=== PATIENT | male | born 1955 | race Caucasian/White ===

== ENCOUNTER 2018-02-07 12:51 | Outpatient (CLI) | payer OTHER, SELFPAY ==
--- NOTE | 2018-02-07 08:59 | DI.RAD_ITS ---
SYMPTOM/DIAGNOSIS: KNEE PAIN, PRE TKA SURGERY LEG LENGTH STUDY: Standing AP views were performed from above the pelvis through the ankles. The left iliac crest projects superior to the right. The left femoral head projects 9 mm. superior to the left. The hip joint spaces are well maintained. Degenerative changes are seen in the lumbar spine. There are severe degenerative changes of both medial femoral tibial joint spaces and varus angulation at both knees. The ankles are unremarkable. IMPRESSION: Severe degenerative changes of both knees. Leg length discrepancy. LEFT KNEE: There is severe narrowing of the medial femoral tibial joint space. There is some flattening of the medial femoral condyle and remodeling of the medial tibial plateau. There is widening of the lateral femoral tibial joint space. Prominent spurring is also noted at the patellofemoral joint. Spurring is seen at the quadriceps insertion on the patella. There is a small joint effusion. Vascular calcifications are faintly seen. IMPRESSION: Severe degenerative changes of the medial femoral tibial joint. RIGHT KNEE: There are severe degenerative changes of the medial femoral tibial joint. There is flattening of the medial femoral condyle and medial tibial plateau and prominent spurring. Prominent spurring is also seen at the femoral intercondylar notch and patellofemoral joint. Mild degenerative changes are also noted of the lateral femoral tibial joint space but there is no lateral joint space narrowing. Vascular calcifications are seen. IMPRESSION: Degenerative changes, most severe in the medial femoral tibial joint.
== END 2018-02-07 13:11 ==
PROVIDERS: PCP Family Medicine; Visit Provider Student in an Organized Health Care Education/Training Program
DX: M25.561 Pain in right knee (principal); M25.562 Pain in left knee; M17.0 Bilateral primary osteoarthritis of knee
CPT/HCPCS: 73560; 77073

== ENCOUNTER 2018-03-05 07:49 | Outpatient (CLI) | payer OTHER, SELFPAY ==
[2018-03-05 09:14] LABS: HCT 43.6 % (40.0-50.0); HGB 14.9 g/dL (13.5-17.5); Mean Corp. HGB Concentration 34.2 g/dL (32.0-36.0); Mean Corpuscular Hemoglobin 29.6 pg (27.0-33.0); Mean Corpuscular Volume 86.7 fL (80-95); Mean Platelet Volume 9.8 fL (8.0-11.0); Platelet Count 277 x1000/uL (130-400); RBC 5.03 m/cumm (4.50-6.00); RBC Distribution Width 12.8 % (11.8-14.1); White Blood Cell Count 5.68 k/cumm (4.4-10.8)
--- NOTE | 2018-03-05 12:30 | W.PREOPHP ---
Date of service: 03/05/18 History of Present Illness Chief Complaint: Bilateral knee pain Narrative: Patient is a 62-year-old male who is been complaining of bilateral knee pain really for 7 or 8 years now. He has had arthroscopies done on both knees, but continues to have pain. He is a pretty active person who also works doing [employer]. He has put off knee replacements for quite some time now for fear of limiting his activity. He says at this point the pain is bad enough where it is limiting his activity on its own. He has had x-rays done which show severe arthritis of both knees, specifically the medial compartment of both knees. The joint space in the medial side is non-existent. He has been getting injections in Dr. Marte's office that have helped in the past to an extent. At this point Dr. Marte suggests bilateral total knee replacements, but states that he does not do them. He then sought out care from Dr. Tate who also recommends bilateral knee replacements. Since conservative treatment has failed at this point, patient would like to proceed with bilateral knee replacements. Meds Home Medications Medication Instructions Recorded Confirmed Type multivitamin [Once Daily] 1 ea PO DAILY 10/21/12 03/05/18 History needle (disp) 21 G [BD Regular #25 ndl 05/15/17 03/05/18 Rx Bevel [place]] syringe (disposable) #25 syringe 05/15/17 03/05/18 Rx testosterone cypionate 100 mg IM q 2 weeks #2 ml 05/15/17 03/05/18 Rx aspirin [Aspir-Low] 81 mg PO HS tab-cap 08/23/17 03/05/18 History amlodipine-benazepril [Lotrel] 1 tab-cap PO DAILY #90 tab-cap 10/09/17 03/05/18 Rx gemfibrozil [Lopid] 600 mg PO BID #180 tab-cap 10/09/17 03/05/18 Rx ibuprofen 800 mg PO BID PRN #180 tab-cap 10/09/17 03/05/18 Rx pantoprazole [Protonix] 40 mg PO DAILY #90 tab-cap 10/09/17 03/05/18 Rx Metoprolol Succinate 25 mg PO DAILY #90 tab-cap 11/29/17 03/05/18 Clinic acetaminophen [Tylenol Extra 650 mg PO BID 11/29/17 03/05/18 History Strength] needle (disp) 21 G [[place]] #12 ndl 12/13/17 03/05/18 Rx Allergies Allergy/AdvReac Type Severity Reaction Status Date / Time No Known Allergies Allergy Unverified 03/05/18 09:11 Results Labs : 03/05/18 09:02 Laboratory Results - last 24 hr 03/05/18 03/05/18 09:02 09:02 WBC 5.68 RBC 5.03 Hgb 14.9 Hct 43.6 MCV 86.7 MCH 29.6 MCHC 34.2 RDW 12.8 Plt Count 277 MPV 9.8 Patient ABO/Rh B Positive Antibody Screen Negative
--- NOTE | 2018-03-05 12:46 | W.PREOPHP ---
Date of service: 03/05/18 Assessment and Plan (1) Osteoarthritis of both knees: Current visit: Yes Status: Chronic Patient has osteoarthritis of both knees, and has failed conservative treatment. Plan is for bilateral total knee replacement. Details of surgery were discussed with patient as well as risks, and pertinent anatomy. All questions were answered. History of Present Illness Narrative: Patient is a 62-year-old male who is been complaining of bilateral knee pain really for 7 or 8 years now. He has had arthroscopies done on both knees, but continues to have pain. He is a pretty active person who also works doing [employer]. He has put off knee replacements for quite some time now for fear of limiting his activity. He says at this point the pain is bad enough where it is limiting his activity on its own. He has had x-rays done which show severe arthritis of both knees, specifically the medial compartment of both knees. The joint space in the medial side is non-existent. He has been getting injections in Dr. Marte's office that have helped in the past to an extent. At this point Dr. Marte suggests bilateral total knee replacements, but states that he does not do them. He then sought out care from Dr. Tate who also recommends bilateral knee replacements. Since conservative treatment has failed at this point, patient would like to proceed with bilateral knee replacements. Pertinent Surgical Information Patient denies history of CVA, [place], angina, asthma, COPD, renal or liver disorders, hepatitis, bleeding disorders, diabetes, immune or thyroid disorders. No complications from anesthesia. Review of Systems Constitutional Denies fever(s) ENT Denies dizziness and Denies sore throat Cardiovascular Denies chest pain, Denies palpitations and Denies dyspnea Respiratory Denies dyspnea Gastrointestinal Denies abdominal pain, Denies melena, Denies hematochezia, Denies diarrhea, Denies nausea and Denies vomiting Genitourinary Denies hematuria and Denies dysuria Neurologic Denies dizziness Endocrine Denies palpitations [facility] Family History Mother Diabetes Essential hypertension Hyperlipidemia Father Diabetes Essential hypertension Depression Heart disease Hyperlipidemia Grandfather No problems noted. Grandfather No problems noted. Grandmother Cerebrovascular accident Grandmother No problems noted. Sister Essential hypertension Sister No problems noted. Sister No problems noted. Brother No problems noted. Brother No problems noted. Brother No problems noted. Son No problems noted. Daughter No problems noted. Medical History Osteoarthritis of knees, bilateral (Acute) Chronic low back pain Hearing loss Hypercholesterolemia Hypertension Social History Smoking/Tobacco Use Status: Never Surgical History History of arthroscopy of both knees (Acute) BACK SURGERY (~04/2013) Colonoscopy - MAC Excision, Olecranon Bursa (~08/2009) NEGATIVE STRESS TEST Meds Home Medications Medication Instructions Recorded Confirmed Type multivitamin [Once Daily] 1 ea PO DAILY 10/21/12 03/05/18 History needle (disp) 21 G [BD Regular #25 ndl 05/15/17 03/05/18 Rx Bevel [place]] syringe (disposable) #25 syringe 05/15/17 03/05/18 Rx testosterone cypionate 100 mg IM q 2 weeks #2 ml 05/15/17 03/05/18 Rx aspirin [Aspir-Low] 81 mg PO HS tab-cap 08/23/17 03/05/18 History amlodipine-benazepril [Lotrel] 1 tab-cap PO DAILY #90 tab-cap 10/09/17 03/05/18 Rx gemfibrozil [Lopid] 600 mg PO BID #180 tab-cap 10/09/17 03/05/18 Rx ibuprofen 800 mg PO BID PRN #180 tab-cap 10/09/17 03/05/18 Rx pantoprazole [Protonix] 40 mg PO DAILY #90 tab-cap 10/09/17 03/05/18 Rx Metoprolol Succinate 25 mg PO DAILY #90 tab-cap 11/29/17 03/05/18 Clinic acetaminophen [Tylenol Extra 650 mg PO BID 11/29/17 03/05/18 History Strength] needle (disp) 21 G [[place]] #12 ndl 12/13/17 03/05/18 Rx Allergies Allergy/AdvReac Type Severity Reaction Status Date / Time No Known Allergies Allergy Unverified 03/05/18 09:11 Exam HENMT Head: normocephalic and atraumatic General nose exam: no nasal discharge Throat: uvula midline and no uvular edema Other: soft palate rises symmetrically, no erythema Eyes Conjunctivae: conjunctivae normal Sclera: sclerae normal Pupils: PERRL Resp Effort & Inspection: normal respiratory effort Auscultation: clear to auscultation bilaterally and no wheezes Cardio Rate: regular rate Rhythm: regular rhythm Heart Sounds: S1 normal, S2 normal and no murmurs Other: BP: 134/76 Results Labs : 03/05/18 09:02 Laboratory Results - last 24 hr 03/05/18 03/05/18 09:02 09:02 WBC 5.68 RBC 5.03 Hgb 14.9 Hct 43.6 MCV 86.7 MCH 29.6 MCHC 34.2 RDW 12.8 Plt Count 277 MPV 9.8 Patient ABO/Rh B Positive Antibody Screen Negative
--- NOTE | 2018-03-05 12:49 | HPE_ITS ---
Date of service: 03/05/18 Assessment and Plan (1) Osteoarthritis of both knees: Current visit: Yes Status: Chronic Patient has osteoarthritis of both knees, and has failed conservative treatment. Plan is for bilateral total knee replacement. Details of surgery were discussed with patient as well as risks, and pertinent anatomy. All questions were answered. History of Present Illness Narrative: Patient is a 62-year-old male who is been complaining of bilateral knee pain really for 7 or 8 years now. He has had arthroscopies done on both knees, but continues to have pain. He is a pretty active person who also works doing [employer]. He has put off knee replacements for quite some time now for fear of limiting his activity. He says at this point the pain is bad enough where it is limiting his activity on its own. He has had x-rays done which show severe arthritis of both knees, specifically the medial compartment of both knees. The joint space in the medial side is non-existent. He has been getting injections in Dr. Marte's office that have helped in the past to an extent. At this point Dr. Marte suggests bilateral total knee replacements, but states that he does not do them. He then sought out care from Dr. Tate who also recommends bilateral knee replacements. Since conservative treatment has failed at this point, patient would like to proceed with bilateral knee replacements. Pertinent Surgical Information Patient denies history of CVA, [place], angina, asthma, COPD, renal or liver disorders, hepatitis, bleeding disorders, diabetes, immune or thyroid disorders. No complications from anesthesia. Review of Systems Constitutional Denies fever(s) ENT Denies dizziness and Denies sore throat Cardiovascular Denies chest pain, Denies palpitations and Denies dyspnea Respiratory Denies dyspnea Gastrointestinal Denies abdominal pain, Denies melena, Denies hematochezia, Denies diarrhea, Denies nausea and Denies vomiting Genitourinary Denies hematuria and Denies dysuria Neurologic Denies dizziness Endocrine Denies palpitations [facility] Family History Mother Diabetes Essential hypertension Hyperlipidemia Father Diabetes Essential hypertension Depression Heart disease Hyperlipidemia Grandfather No problems noted. Grandfather No problems noted. Grandmother Cerebrovascular accident Grandmother No problems noted. Sister Essential hypertension Sister No problems noted. Sister No problems noted. Brother No problems noted. Brother No problems noted. Brother No problems noted. Son No problems noted. Daughter No problems noted. Medical History Osteoarthritis of knees, bilateral (Acute) Chronic low back pain Hearing loss Hypercholesterolemia Hypertension Social History Smoking/Tobacco Use Status: Never Surgical History History of arthroscopy of both knees (Acute) BACK SURGERY (~04/2013) Colonoscopy - MAC Excision, Olecranon Bursa (~08/2009) NEGATIVE STRESS TEST Meds Home Medications Medication Instructions Recorded Confirmed Type multivitamin [Once Daily] 1 ea PO DAILY 10/21/12 03/05/18 History needle (disp) 21 G [BD Regular #25 ndl 05/15/17 03/05/18 Rx Bevel [place]] syringe (disposable) #25 syringe 05/15/17 03/05/18 Rx testosterone cypionate 100 mg IM q 2 weeks #2 ml 05/15/17 03/05/18 Rx aspirin [Aspir-Low] 81 mg PO HS tab-cap 08/23/17 03/05/18 History amlodipine-benazepril [Lotrel] 1 tab-cap PO DAILY #90 tab-cap 10/09/17 03/05/18 Rx gemfibrozil [Lopid] 600 mg PO BID #180 tab-cap 10/09/17 03/05/18 Rx ibuprofen 800 mg PO BID PRN #180 tab-cap 10/09/17 03/05/18 Rx pantoprazole [Protonix] 40 mg PO DAILY #90 tab-cap 10/09/17 03/05/18 Rx Metoprolol Succinate 25 mg PO DAILY #90 tab-cap 11/29/17 03/05/18 Clinic acetaminophen [Tylenol Extra 650 mg PO BID 11/29/17 03/05/18 History Strength] needle (disp) 21 G [[place]] #12 ndl 12/13/17 03/05/18 Rx Allergies Allergy/AdvReac Type Severity Reaction Status Date / Time No Known Allergies Allergy Unverified 03/05/18 09:11 Exam HENMT Head: normocephalic and atraumatic General nose exam: no nasal discharge Throat: uvula midline and no uvular edema Other: soft palate rises symmetrically, no erythema Eyes Conjunctivae: conjunctivae normal Sclera: sclerae normal Pupils: PERRL Resp Effort & Inspection: normal respiratory effort Auscultation: clear to auscultation bilaterally and no wheezes Cardio Rate: regular rate Rhythm: regular rhythm Heart Sounds: S1 normal, S2 normal and no murmurs Other: BP: 134/76 Results Labs : 03/05/18 09:02 Laboratory Results - last 24 hr 03/05/18 03/05/18 09:02 09:02 WBC 5.68 RBC 5.03 Hgb 14.9 Hct 43.6 MCV 86.7 MCH 29.6 MCHC 34.2 RDW 12.8 Plt Count 277 MPV 9.8 Patient ABO/Rh B Positive Antibody Screen Negative
[2018-03-07 17:14] LABS: Testosterone, Free 15.4 ng/dL (3.67-13.9); Testosterone, Total 768 ng/dL (240-950)
== END 2018-03-05 08:09 ==
PROVIDERS: PCP Family Medicine; Visit Provider Student in an Organized Health Care Education/Training Program
DX: M17.0 Bilateral primary osteoarthritis of knee (principal); Z01.812 Encounter for preprocedural laboratory examination; Z01.818 Encounter for other preprocedural examination
CPT/HCPCS: 36415; 84402; 84403; 85027; 86850; 86900; 86901; NC

== ENCOUNTER 2018-03-14 08:23 | Inpatient (IN) | payer OTHER, SELFPAY ==
[2018-03-14] VITALS (12 sets, daily range): BP systolic 89–156; BP diastolic 56–103; PULSE 37–72; RESP 1–18; TEMP 36.1–36.9; O2SAT 95–98
[2018-03-14] MEDS: Lactated Ringers 1,000 ML 80 ML IV ×4 (09:02→16:13)
[2018-03-14] MEDS: Gabapentin 300 MG CAP PO (09:09)
[2018-03-14] MEDS: oxyCODONE-CR 10 MG TABCR PO (09:09)
[2018-03-14] MEDS: Celecoxib 200 MG CAP 400 MG PO (09:09)
[2018-03-14] MEDS: Acetaminophen 500 MG TAB 1000 MG PO ×2 (09:09→20:28)
[2018-03-14] MEDS: Bupivacaine 0.25% Pres-Free 10 ML VIAL (09:50)
[2018-03-14] MEDS: Bupivacaine 0.25% Pres-Free 30 ML VIAL ×3 (09:50→13:30)
--- NOTE | 2018-03-14 14:14 | ROE_ITS ---
Date of service: 03/14/18 Time of Service: 14:12 Operative Note DATE OF PROCEDURE: 03/14/18 PRE-OP DIAGNOSIS: Bilateral knee osteoarthritis POST-OP DIAGNOSIS: same PROCEDURE: Bilateral Total Knee Replacement SURGEON: Eliseo Tate [employer]CIAL APPLICATION DEVELOPER: Boy Saab ANESTHESIA: regional and spinal ESTIMATED BLOOD LOSS: 700 PATHOLOGY: none sent TOURNIQUET TIME: 61 COMPLICATIONS: None Patient was transported to: PACU Patient's condition: stable Implants: RIGHT: 1. Depuy Attune Posterior Stabilized Femoral Component, Size 8 2. Depuy Attune Fixed Platform Tibial Component, Size 7 3. Depuy Attune 8 x 8 mm fixed, stabilized Poly 4. Depuy Attune Patellar Component, Size 38 mm LEFT: 1. Depuy Attune Posterior Stabilized Femoral Component, Size 8 2. Depuy Attune Fixed Platform Tibial Component, Size 7 3. Depuy Attune 8 x 7 mm fixed, Stabilized Poly 4. Depuy Attune Patellar Component, 38 mm Indications: I have seen Gary in clinic for symptoms of bilteral knee arthritis , confirmed with radiographic findings. Gary has exhausted nonoperative methods and was having significant limitations in daily function and desired better function and less pain. I discussed the technical details of a knee replacement. I explained the risks of the procedure to include, but not limited to, bleeding, infection, pain, stiffness, fracture, damage to nerves and vessels, damage to muscles and tendons, loosening, need for repeat procedure , blood clot and cardiopulmonary demise. Despite these risks, Gary elected to proceed. Findings: There was significant signs of arthritis throughout both knees. Both knees had significant tibial varus with medial arthritis as well as try compartmental osteophytes. The anatomy the left knee had a quite a oblong patella and a lateralized tibial tubercle. Procedure Description: Gary was greeted in the preoperative holding area where the correct side was identified and marked. The consent was reviewed with the patient and signed. The history and physical was updated. All questions were answered. Preoperative medications were administered: Acetaminophen 1000mg, Celebrex 400mg, Gabapentin 300mg, and Oxycontin 10mg. An adductor canal block was then administered by the anesthesia team in the PACU. Gary was taken back to the operating room. The patient was placed into the supine position on the operating room table. A nonsterile tourniquet was placed high onto the leg but only used for cementing. Posts were placed for positioning during the procedure. All bony prominences were well padded. Prophylactic antibiotics in the form of cefazolin were administered. 1g of Tranxemic Acid was given intravenously within 30 minutes of incision. The right leg was then prepped with Chloraprep and draped in a standard fashion with impervious stockinette and extremity drape with Iodine impregnated skin protection. A timeout to confirm correct identity, side and site, procedure, allergies, anesthesia, and medical concerns was performed. With the knee in some flexion, a midline incision was made overlying the knee. Full thickness skin flaps were raised once the extensor mechanism was encountered. These were raised medially and laterally. Any bleeding was controlled with electrocautery. Once the extensor mechanism was fully exposed, a medial parapatellar arthrotomy was performed in a flexed position. All bleeding from the arthrotomy and the geniculate arteries was coagulated. A medial subperiosteal peel was performed with electrocautery to the midcoronal plane. Due to the significant varus deformity the entire medial tibial plateau was exposed. The fat pad was removed while keeping the patellar tendon protected. The anterior distal femur synovium was removed for later visualization. The ACL and PCL were resected and the anterior horn of the lateral meniscus was transected. The knee was then flexed with the patella everted. Large osteophytes from the tibia were removed. Large osteophytes from the femur were removed. Using a step drill, and based on preoperative templating, the femoral canal was entered. This was done with a step drill without any difficulty. The intramedullary distal femoral cut guide was inserted, set to a 5 degree valgus cut and 10mm cut thickness. The distal femoral cut guide was then held in position and pinned. With the soft tissues protected, the distal cut was performed. This was passed over a few times to ensure a planar cut. I then turned attention to the tibia. The extramedullary guide was placed onto the leg. The distal aspect was slid medial to adjust for position of center of ankle and stay in line with shaft of the tibia. Approximately 3-5 degrees of posterior slope was kept in the proximal cutting guide. The center of the guide was aligned with the PCL. The stylus was used to assess cut thickness. The medial side, most involved side, was set for a 3mm cut. This was then held in position and pinned into place with 2 additional pins and a cross pin for stability. The medial and lateral collateral ligaments were protected and the cut was performed. With this completed, it was assessed and noted to be of appropriate dimensions. The guide was removed. A spacer block was inserted and the knee was brought into extension. The 7 mm spacer block provided full extension, without hyperextension and with stability of both the medial and lateral collateral ligaments was assessed. The pins from the femur and the tibia were then removed. The distal femur was then sized. The anterior stylus was placed onto the lateral ridge of the anterior femur. This indicated a size 8 femur. The external rotation of the guide was 5 degrees to match the epicondylar axis, perpendicular to Lipscomb?s line. The 4-in-1 cutting guide was the placed. The posterior medial femur cut was evaluated and appeared of good thickness. The spacer block was inserted underneath the cutting guide and stability was confirmed in 90 degrees of flexion. An deepthi wing was used to confirm appropriate position of the anterior cut to avoid notching. This cutting guide was ensured to be flush on the cut surface and then pinned into place with headed pins. While protecting the soft tissues, quad tendon, and collateral ligaments, the anterior and posterior cuts were performed with a saw. The central two pins were removed and the posterior and anterior chamfers were cut next. The notch-cutting guide was placed. This was pinned to lateralize the femoral component as much as possible while keeping it flush on the cut surface. This was then pinned into position. A reciprocating saw was used to make the notch cut. A rasp smoothed the cut surfaces. A trial posterior stabilized femoral component was then inserted, impacted down to the cut surfaces, and the lug holes were drilled. A provisional trial tibial component was placed and the knee was brought through range of motion. The polyethylene was trialed until there was good flexion and extension with excellent stability to the medial and lateral collaterals. The patella was tracking without thumbs. The tibial cut surface was fully exposed. The medial and lateral menisci were removed. The tibia was then sized as a 7. The tibia had been previously marked during trialing to correspond to the center of the tibial component to help with rotation. The trial was aligned to this boy, approximately rotated to the medial 1/3rd of the tibial tubercle. The trial was pinned into place. The tibia was prepared with a reamer and a keel punch. The knee was then brought into extension and the patella was measured as 29 mm. Using the patellar clamp and cut guide, this was resected to a flat surface with at least 13mm of thickness remaining. The size 38 mm patella fit the best. This was oriented and then clamped into position. The lugs were drilled. The trial components were removed. The final components, except for the polyethylene were opened on the back table. The periosteal and capsular tissues , especially posteriorly, around the knee were then systematically injected with 20cc of 0.25% Marcaine and the tourniquet was then inflated to 275mmHg. The knee was thoroughly irrigated with a pulse lavage and dried. On the back table, with the implants opened, the cement was mixed. 2 batches of antibiotic laden cement were prepared with vacuum assistance. After the cement was ready a small amount was placed on to the back side of the tibial component at the keel. A small amount was placed onto the posterior flange of the femur. Cement was manual pressurized and impregnated into the cut surface of the tibia. The tibial component was then inserted into the cut surface and impacted into position. Excess cement was removed and the component was reimpacted. Again, excess cement was removed and our attention was then turned to the femur. The femoral cut surface was once again dried and cement was manually impacted into the cut surface. The femoral component was lined with the lug holes and impacted. Excess cement was removed. It was ensured to be down against the cut surface. The trial polyethylene was then inserted and the leg was brought out into full extension for the duration of the cement curing process, approximately 15min. Cement was lastly manually impacted into the cut surface of the patella and the patellar button was clamped into position and held. During this process attention was turned to the gutters of the knee and for all interfaces for any excess cement. After the cement had finally cured, approximately 15min, the clamp was removed from the patella and the knee was taken through range of motion. A size 6mm polyethylene component provided the best range of motion and stability with less than 2mm gapping with medial and lateral stress and full extension without significant hyperextension. The patella was tracking with a no-thumbs technique. The trial poly was removed and once again the knee was checked for any loose, excess, or errant cement. The poly component was then inserted and impacted into position after cleaning and drying the tibial tray. The capsule was then reapproximated with a No. 1 Vicryl at multiple locations. The capsule was finally closed with a No. 2 Stratafix, barbed suture. The tourniquet was then released and the arthrotomy appeared watertight without significant bleeding. The second dosing of 1g TXA was started. Deep tissues were then reapproximated with 0 Vicryl and 2-0 Vicryl. The skin was closed with a running 3-0 Monocryl in a subcuticular fashion. This was reinforced with skin glue. A Mepilex silver dressing was applied along with a foot-to- thigh KINJAL wrap. A CryoCuff was applied. Our attention was then turned to the left knee. With the knee in some flexion, a midline incision was made overlying the knee. Full thickness skin flaps were raised once the extensor mechanism was encountered. These were raised medially and laterally. Any bleeding was controlled with electrocautery. Once the extensor mechanism was fully exposed, a medial parapatellar arthrotomy was performed in a flexed position. All bleeding from the arthrotomy and the geniculate arteries was coagulated. A medial subperiosteal peel was performed with electrocautery to the midcoronal plane. Due to the significant varus deformity the entire medial tibial plateau was exposed. The fat pad was removed while keeping the patellar tendon protected. The anterior distal femur synovium was removed for later visualization. The ACL and PCL were resected and the anterior horn of the lateral meniscus was transected. The knee was then flexed with the patella everted. Large osteophytes from the tibia were removed. Large osteophytes from the femur were removed. The patella had quite an odd shape. It was very oblique in nature. The tibial tubercle is also very lateral making the parapatellar approach seem out of place. Using a step drill, and based on preoperative templating, the femoral canal was entered. This was done with a step drill without any difficulty. The intramedullary distal femoral cut guide was inserted, set to a 5 degree valgus cut and 10mm cut thickness. The distal femoral cut guide was then held in position and pinned. With the soft tissues protected, the distal cut was performed. This was passed over a few times to ensure a planar cut. I then turned attention to the tibia. The extramedullary guide was placed onto the leg. The distal aspect was slid medial to adjust for position of center of ankle and stay in line with shaft of the tibia. Approximately 3-5 degrees of posterior slope was kept in the proximal cutting guide. The center of the guide was aligned with the PCL. The stylus was used to assess cut thickness. The medial side, most involved side, was set for a 3mm cut. This was then held in position and pinned into place with 2 additional pins and a cross pin for stability. The medial and lateral collateral ligaments were protected and the cut was performed. With this completed, it was assessed and noted to be of appropriate dimensions. The guide was removed. A spacer block was inserted and the knee was brought into extension. The 6mm spacer block provided full extension, without hyperextension and with stability of both the medial and lateral collateral ligaments was assessed. The pins from the femur and the tibia were then removed. The distal femur was then sized. The anterior stylus was placed onto the lateral ridge of the anterior femur. This indicated a size 8 femur. The external rotation of the guide was adjusted to 3 degrees to match the epicondylar axis, perpendicular to Lipscomb?s line. The 4-in-1 cutting guide was the placed. The posterior medial femur cut was evaluated and appeared of good thickness. The spacer block was inserted underneath the cutting guide and stability was confirmed in 90 degrees of flexion. An deepthi wing was used to confirm appropriate position of the anterior cut to avoid notching. This cutting guide was ensured to be flush on the cut surface and then pinned into place with headed pins. While protecting the soft tissues, quad tendon, and collateral ligaments, the anterior and posterior cuts were performed with a saw. The central two pins were removed and the posterior and anterior chamfers were cut next. The notch-cutting guide was placed. This was pinned to lateralize the femoral component as much as possible while keeping it flush on the cut surface. This was then pinned into position. A reciprocating saw was used to make the notch cut. A rasp smoothed the cut surfaces. A trial posterior stabilized femoral component was then inserted, impacted down to the cut surfaces, and the lug holes were drilled. A provisional trial tibial component was placed and the knee was brought through range of motion. The polyethylene was trialed until there was good flexion and extension with excellent stability to the medial and lateral collaterals. The patella was tracking without thumbs. The tibial cut surface was fully exposed. The medial and lateral menisci were removed. The tibia was then sized as a 7. The tibia had been previously marked during trialing to correspond to the center of the tibial component to help with rotation. The trial was aligned to this boy, approximately rotated to the medial 1/3rd of the tibial tubercle. The trial was pinned into place. The tibia was prepared with a reamer and a keel punch. The knee was then brought into extension and the patella was measured as 30 mm. Using the patellar clamp and cut guide, this was resected to a flat surface with at least 13mm of thickness remaining. The 38 mm patella fit the best. This was oriented and then clamped into position. The lugs were drilled. The trial components were removed. The final components, except for the polyethylene were opened on the back table. The periosteal and capsular tissues , especially posteriorly, around the knee were then systematically injected with a periarticular cocktail consisting of 50cc 0.25% Marcaine, 30mg Ketorolac , 20cc of Exparal and 50cc of injectable saline. The tourniquet was then inflated to 275mmHg. The knee was thoroughly irrigated with a pulse lavage and dried. On the back table, with the implants opened, the cement was mixed. 2 batches of antibiotic laden cement were prepared with vacuum assistance. After the cement was ready a small amount was placed on to the back side of the tibial component at the keel. A small amount was placed onto the posterior flange of the femur. Cement was manual pressurized and impregnated into the cut surface of the tibia. The tibial component was then inserted into the cut surface and impacted into position. Excess cement was removed and the component was reimpacted. Again, excess cement was removed and our attention was then turned to the femur. The femoral cut surface was once again dried and cement was manually impacted into the cut surface. The femoral component was lined with the lug holes and impacted. Excess cement was removed. It was ensured to be down against the cut surface. The trial polyethylene was then inserted and the leg was brought out into full extension for the duration of the cement curing process, approximately 15min. Cement was lastly manually impacted into the cut surface of the patella and the patellar button was clamped into position and held. During this process attention was turned to the gutters of the knee and for all interfaces for any excess cement. After the cement had finally cured, approximately 15min, the clamp was removed from the patella and the knee was taken through range of motion. A size 7 mm polyethylene component provided the best range of motion and stability with less than 2mm gapping with medial and lateral stress and full extension without significant hyperextension. The patella was tracking with a no-thumbs technique. The trial poly was removed and once again the knee was checked for any loose, excess, or errant cement. The poly component was then inserted and impacted into position after cleaning and drying the tibial tray. The capsule was then reapproximated with a No. 1 Vicryl at multiple locations. The capsule was finally closed with a No. 2 Stratafix, barbed suture. The tourniquet was then released and the arthrotomy appeared watertight without significant bleeding. The second dosing of 1g TXA was started. Deep tissues were then reapproximated with 0 Vicryl and 2-0 Vicryl. The skin was closed with a running 3-0 Monocryl in a subcuticular fashion. This was reinforced with skin glue. A Mepilex silver dressing was applied along with a foot-to- thigh KINJAL wrap. A CryoCuff was applied. Gary was woken from his sedation and transferred to the hospital bed. He was taken to the PACU in stable condition Gary has a good prognosis. Physical therapy will start today and without restrictions, weight-bearing as tolerated. Rivaroxaban 10 mg will be used for DVT prophylaxis.
--- NOTE | 2018-03-14 14:56 | PT.INNT ---
Date of service: 03/14/18 Time of Service: 14:56 PT Notes PHYSICAL THERAPY NOTE 03/14/18 PT consult received, chart reviewed, pt not yet on unit. Will complete PT eval in am, FWW left in patient room Sharon De Leon PT
--- NOTE | 2018-03-14 15:41 | PDOC.CMIN ---
- If Service Date Differs Date of service: 03/14/18 Time of Service: 15:41 Care Management Initial Assess REASON FOR HOSPITALIZATION:: Bilateral knee DJD. PAST MEDICAL HISTORY/PAST SURGICAL HISTORY:: Hearing loss, hypercholesterolemia, hypertension, osteoarthritis bilateral knees. Surgical hx: back surgery, colonoscopy, excision; olecranon bursa. PREVIOUS FUNCTIONAL STATUS/SOCIAL/FAMILY SUPPORTS:: Gary resides in [place] with his , Trinity. 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 Gary is very active prior to this surgery and is often seen by this adjusto writer operator working in the [employer]. Gary is independent with his ADLs and transportation. Gary has had several surgeries on his back, the most recent in August. CURRENT FUNCTIONAL STATUS:: Gary is lying in bed post-op day 1 following bilateral knee DJD. He is engaged in conversation and talkative. Gary reports that his knees aren't really bothering him but that he is having back pain. He reports that the pain is likely due to the fact that he rushed to get six months worth of work into five weeks. Gary has had two past surgeries on his back and has received cortisone shots for years. He has an aqua K pad in place and is receiving IV pain medications and fluids. Per nursing, Gary has been desating while sleeping and is being monitored. PT will begin working with Gary today. Gary reports that he has a walker at home and additionally has grab bars, a shower chair, and a raised toilet seat. He and his are discussing the purchase of a hospital bed d/t Gary's bedroom being 12 stairs up from the first floor. Gary's , Trinity, followed up with CM later in the day to relay her concerns regarding Gary's nutrition. Trinity reports that Gary was talking about starving himself and only eating popsicles while at [facility] because he needed to start losing weight. CM and Trinity agreed that sufficient nutrition is critical in healing and that any weight loss program should not begin today (in particular, weight loss via starvation). CM will relay information to RN. ADVANCE DIRECTIVES:: None on file at [facility]. Has patient been provided with information about the portal?: Yes Did the patient sign up for the portal?: No CODE STATUS:: Full Code INSURANCE COVERAGE / FINANCIAL ISSUES:: [employer] PRIMARY CARE PHYSICIAN:: Shai Mcdaniel. POTENTIAL DISCHARGE NEEDS:: Follow up appointment with surgical services and PCP. Home PT/OT services. PATIENT/FAMILY EDUCATION NEEDS:: Discharge education, any limitations, and follow up plan of care. Ask Me Three discussion. ANTICIPATED BARRIERS TO DISCHARGE:: No anticipated barriers to discharge. TRANSPORTATION:: Gary will transport via private vehicle with his , Trinity. PLAN:: Cole will discharge home when medically ready per MD. Anticipate patient will discharge home with PT/OT services and follow up with MD. CM will continue to offer support to patient and care team regarding discharge planning and disposition.
--- NOTE | 2018-03-14 15:56 | INITIAL_ITS ---
- If Service Date Differs Date of service: 03/14/18 Time of Service: 15:41 Care Management Initial Assess REASON FOR HOSPITALIZATION:: Bilateral knee DJD. PAST MEDICAL HISTORY/PAST SURGICAL HISTORY:: Hearing loss, hypercholesterolemia , hypertension, osteoarthritis bilateral knees. Surgical hx: back surgery, colonoscopy, excision; olecranon bursa. PREVIOUS FUNCTIONAL STATUS/SOCIAL/FAMILY SUPPORTS:: Gary resides in [place] with his , Trinity. 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 Gary is very active prior to this surgery and is often seen by this senior grant writer working in the [employer]. Gary is independent with his ADLs and transportation. Gary has had several surgeries on his back, the most recent in August. CURRENT FUNCTIONAL STATUS:: Gary is lying in bed post-op day 1 following bilateral knee DJD. He is engaged in conversation and talkative. Gary reports that his knees aren't really bothering him but that he is having back pain. He reports that the pain is likely due to the fact that he rushed to get six months worth of work into five weeks. Gary has had two past surgeries on his back and has received cortisone shots for years. He has an aqua K pad in place and is receiving IV pain medications and fluids. Per nursing, Gary has been desating while sleeping and is being monitored. PT will begin working with Gary today. Gary reports that he has a walker at home and additionally has grab bars, a shower chair, and a raised toilet seat. He and his are discussing the purchase of a hospital bed d/t Gary's bedroom being 12 stairs up from the first floor. Gary's , Trinity, followed up with CM later in the day to relay her concerns regarding Gary's nutrition. Trinity reports that Gary was talking about starving himself and only eating popsicles while at [facility] because he needed to start losing weight. CM and Trinity agreed that sufficient nutrition is critical in healing and that any weight loss program should not begin today (in particular, weight loss via starvation). CM will relay information to RN. ADVANCE DIRECTIVES:: None on file at [facility]. Has patient been provided with information about the portal?: Yes Did the patient sign up for the portal?: No CODE STATUS:: Full Code INSURANCE COVERAGE / FINANCIAL ISSUES:: [employer] PRIMARY CARE PHYSICIAN:: Shai Mcdaniel. POTENTIAL DISCHARGE NEEDS:: Follow up appointment with surgical services and PCP. Home PT/OT services. PATIENT/FAMILY EDUCATION NEEDS:: Discharge education, any limitations, and follow up plan of care. Ask Me Three discussion. ANTICIPATED BARRIERS TO DISCHARGE:: No anticipated barriers to discharge. TRANSPORTATION:: Gary will transport via private vehicle with his , Trinity. PLAN:: Cole will discharge home when medically ready per MD. Anticipate patient will discharge home with PT/OT services and follow up with MD. CM will continue to offer support to patient and care team regarding discharge planning and disposition.
[2018-03-14] MEDS: Normal Saline Flush 10 ML SYR IV ×2 (16:13→16:47)
[2018-03-14] MEDS: HYDROmorphone 2 MG/ML VIAL 0.5 MG IVP (16:47)
[2018-03-14] MEDS: Gemfibrozil 600 MG TAB PO (16:47)
--- NOTE | 2018-03-14 17:10 | NUR.NOTE ---
Nursing Note: Patient arrived to med/surg via stretcher from PACU and was admitted to room 215 at 1531
[2018-03-14] MEDS: oxyCODONE 5 MG TAB PO ×2 (17:50→22:15)
[2018-03-14] MEDS: Docusate Sodium 100 MG CAP PO (20:25)
[2018-03-14] MEDS: Celecoxib 200 MG CAP PO (20:25)
[2018-03-14] MEDS: Aspirin E.C. 81 MG TABEC PO (20:25)
[2018-03-14] MEDS: Metoprolol CR 25 MG TABCR PO (20:54)
[2018-03-15] VITALS (12 sets, daily range): BP systolic 126–145; BP diastolic 77–86; PULSE 68–84; RESP 12–18; TEMP 37.1–38.5; O2SAT 92–98
[2018-03-15] MEDS: Lactated Ringers 1,000 ML 80 ML IV ×2 (05:47→19:09)
--- NOTE | 2018-03-15 07:26 | W.PM.PROGNOT ---
Assessment and Plan (1) Osteoarthritis of both knees: Current visit: No Status: Chronic Gary is status post bilateral knee replacements. He seems to be doing well. He does have this back pain which she has had in the past. I think it has flared up simply due to his debilitation prior to surgery and the recent surgery itself. We can also try some heating pads to the back. I think mobilization will be his biggest help. He does have pain medication on board. We want to be careful with pain medication at night given his tendency for desaturation. We will continue monitoring his oxygenation at night. He should start physical therapy this morning. We will check blood work. We did lose some 100 cc of total blood loss and it is possible he may need a transfusion. He will start rivaroxaban for blood clot prevention. Subjective Interval history since last seen: Gary is doing okay. He denies having significant pain. He did have some episodes of decreased oxygenation overnight while he was sleeping and taking pain medication. Likely he has some underlying sleep apnea. He denies any numbness or tingling. He is having some pain in his back. He does have significant history and with recent back surgery in the spring of this year. He denies any chest pain or shortness of breath. He denies any fevers or chills per Objective Objective Clinical Data: Vital Signs Temperature 37.1 C 03/15/18 03:25 Temperature Source Tympanic 03/15/18 03:25 Pulse 68 03/15/18 03:25 Pulse Rhythm Irregular 03/15/18 00:00 Respiratory Rate 18 03/15/18 03:25 Respiratory Effort 03/15/18 00:00 Respiratory Depth Normal 03/15/18 00:00 Respiratory Pattern Normal 03/15/18 00:00 Blood Pressure 136/86 03/15/18 03:25 Pulse Oximetry 96 03/15/18 03:25 Respiratory End-tidal CO2 38 03/14/18 15:15 Oxygen Delivery Method Room Air 03/15/18 03:25 Oxygen Flow Rate 0 03/15/18 03:25 Pain Level 0 03/15/18 03:25 Intake & Output 03/14/18 03/14/18 03/15/18 11:59 23:59 11:59 Intake Total 1110 / 1110 2912.333 / 2912.333 1060.667 / 1060.667 Output Total 1100 / 1100 Balance 1110 / 1110 1812.333 / 4918.883 3268.667 / 1060.667 Weight 99.6 kg Intake: IV 1110 / 1110 2272.333 / 2272.333 810.667 / 810.667 Oral 640 / 640 250 / 250 Output: Urine 400 / 400 Estimated Blood Loss 700 / 700 Other: Urine Color Pale Light Sujata Yellow Urine Appearance Clear Clear Clear Emesis Description None
[2018-03-15 07:42] LABS: HCT 35.3 % (40.0-50.0); HGB 11.8 g/dL (13.5-17.5); Mean Corp. HGB Concentration 33.4 g/dL (32.0-36.0); Mean Corpuscular Hemoglobin 29.3 pg (27.0-33.0); Mean Corpuscular Volume 87.6 fL (80-95); Platelet Count 218 x1000/uL (130-400); RBC 4.03 m/cumm (4.50-6.00); RBC Distribution Width 12.8 % (11.8-14.1); White Blood Cell Count 8.91 k/cumm (4.4-10.8)
[2018-03-15 07:55] LABS: Anion Gap 10.6 mmol/L (3-11); BUN 19 mg/dL (7-18); CO2 25.4 mmol/L (21.0-32.0); CREATININE 0.65 mg/dL (0.70-1.30); Calcium 8.1 mg/dL (8.5-10.1); Chloride 104 mmol/L (98-107); Glucose 111 mg/dL (70-100); Potassium 3.8 mmol/L (3.5-5.1); Sodium 140 mmol/L (136-145)
--- NOTE | 2018-03-15 07:59 | PT.INIE ---
Date of service: 03/15/18 Time of Service: 08:45 PT Notes Inpatient Physical Therapy Evaluation Date: February Referring Doctor: Dr. Tate PT Orders: PT CONSULT: s/p bilateral TKA Precautions: Fall Precautions Patient Profile/Admitting Diagnosis: Pt is a 62 year old male s/p bilateral total knee arthroplasty by Dr. Tate 03/14/18. He is an active male. PMHX: Chronic LBP (s/p foraminectomy/lamenectomy due to right LE radiculopathy in August 2017. Prior back surgery in 2012), hearing loss, hypercholesterolemia, HTN, colonsocopy, excision olecrannon bursa, CAD s/p stents, GERD, vertigo. Social History/Home Situation: Lives in multilevel home with with stairs and railing in the home. 3 steps up to landing then 9 stairs to second floor where master bedroom is. They are considering hospital bed for first floor where there is also another bathroom. His works for [email or web address] in [place]. Current Functional Limitations: Ambulation, stair negotiation, bed mobility, transfers. Equipment Owned/DME: Cane, FWW, shower bench, raised toilet seat, suction grab bars for shower. Subjective: Patient lying in bed and agreeable to PT consult. Reports that heis holding up well with his knees. More complaints of back pain which he attributes to being stationary. My back is actually bothering a more than my knees at the moment. I needed to get these done so I can get back in the wills for sugaring this coming winter and spring. Objective: General Observation:Catheter, IV in dorsum of left hand, 1L supplemental O2 via nasal cannula, cryocuffs on each knee. Mental Status: Alert and orientated x3 Pain: 0/10 bilateral knees, 4/10 bilateral knees after IE. ROM: Right Upper Extremity: WNL throughout Left Upper Extremity: WNL throughout Right Lower Extremity: Hip flexion 100 (tested in sitting) AA abduction 30-35 in supine, knee flexion 85 AA in sitting, extension -8 degrees in bed. Ankle WFL all planes. Left Lower Extremity: Hip flexion 105 (in sitting) AA abduction 35 in supine, knee flexion 90 degrees in sitting, extension -5 degrees in bed. Ankle WFL in all planes. Strength: Right Upper Extremity: 5/5 throughout Left Upper Extremity: 5/5 throughout Right Lower Extremity: Palpable quad contraction with quad set. 4/5 hip flexion in sitting, 4-/5 hamstrings, 4/5 abduction in sitting. Unable to perform bent knee leg raise. 4/5 ankle DF and PF. Left Lower Extremity: Palpable quad contraction with quad set. Unable to perform bent knee leg raise. 4/5 hip flexion and abduction, 4-/5 hamstrings. 4/5 ankle DF and PF. Sensation: Intact to light touch in bilateral ankles and feet. Bed Mobility/Transfers: Supine-sit: HOB 40 degrees with use of bedrail, min assist x1 for bilateral LE placement off edge of bed. Sit-Stand: min assist x1 to FWW with gait belt Stand-sit: CG for leg placement with cues to lower body weight with arms on armrest of chair. Sat for 15 minutes. Complaints of nausea. Sit-stand: Min assist x1 to FWW with verbal cues for proper hand placement for de-weighting off chair. Sit-supine: Min assist x1 for bilateral LE elevation onto bed. HOB 20 degrees. Gait: 5 steps times 2 with CGA and FWW. Also performed 10 weight shifts standing at FWW. Patient returned to bed following 15 minutes of sitting. Nursing was in the room distributing his medication followed by breakfast. Balance: Static Sitting: Good Dynamic Sitting: Good Static Standing: Fair Dynamic Standing: Fair Special Tests: Mobility Limitations Standardized Measure [facility] 6 clicks Basic Mobility Inpatient Short Form: Raw Score: 17 Standardized Score: 42.13 CMS Score: 50.57% CMS Modifier: CK Informed Consent/Education: Patient instructed in purpose of PT consult and plan of care. Assessment: Patient is a 62 year old male referred to physical therapy services with the diagnosis of s/p bilateral TKA. Patient presents with clinical signs and symptoms consistent with this diagnosis, as demonstrated by the following impairment level findings: impaired ROM, strength, motor control, muscle performance and LBP and bilateral knee pain. Impairments are contributing to the following functional limitations: as listed above and AMPA score CMS score 50.57%. Patient has good rehab potential. Patient is assessed as a Moderate [id number] complexity based on the following: History: as per PMH Examination: as per functional limitations listed above and [facility] Basic Mobility Inpatient Short Form. Presentation: evolving Decision Making: AMPA score CMS score 50.57% Goals: Goals X1 week 1. Supine-Sit : with supervision 2. Sit-Supine: SBA 3. Sit-Stand: supervision with FWW 4. Stand-Sit: supervision 5. Bed-Chair: SBA with FWW 6. Chair-Bed: SBA with FWW 7. Gait : SBA with FWW 100 feet x2. 8. Stairs: Up/down 3 steps with railing 9. Independent with home exercise program for TKA Plan of Care/Treatment Plan: 1-2x/day, 7 days/week x 1 week. Plan of care has been reviewed with the COMMISSARY SUPERINTENDENT providing the service under Physical Therapy direction. Initiate Physical Therapy intervention for strengthening, bed mobility, transfers, gait, stairs, balance training, use of assistive device. Patient was instructed in ankle pumps, quad sets and gentle ROM for bilateral knee flexion and extension. DISCHARGE RECOMMENDATIONS: Recommend D/C to home with follow up for outpatient PT rehabilitation. TREATMENT CODE/TIME: 45 minutes IE 8:00 G Codes in the area mobility of walking and moving around: current status [id number] CK; projected status GP [id number].
--- NOTE | 2018-03-15 08:08 | IN_ITS ---
Date of service: 03/15/18 Time of Service: 08:45 PT Notes Inpatient Physical Therapy Evaluation Date: February Referring Doctor: Dr. Tate PT Orders: PT CONSULT: s/p bilateral TKA Precautions: Fall Precautions Patient Profile/Admitting Diagnosis: Pt is a 62 year old male s/p bilateral total knee arthroplasty by Dr. Tate 03/14/18. He is an active male. PMHX: Chronic LBP (s/p foraminectomy/lamenectomy due to right LE radiculopathy in August 2017. Prior back surgery in 2012), hearing loss, hypercholesterolemia , HTN, colonsocopy, excision olecrannon bursa, CAD s/p stents, GERD, vertigo. Social History/Home Situation: Lives in multilevel home with with stairs and railing in the home. 3 steps up to landing then 9 stairs to second floor where master bedroom is. They are considering hospital bed for first floor where there is also another bathroom. His works for [employer] in [place] [employer]. Current Functional Limitations: Ambulation, stair negotiation, bed mobility, transfers. Equipment Owned/DME: Cane, FWW, shower bench, raised toilet seat, suction grab bars for shower. Subjective: Patient lying in bed and agreeable to PT consult. Reports that heis holding up well with his knees. More complaints of back pain which he attributes to being stationary. My back is actually bothering a more than my knees at the moment. I needed to get these done so I can get back in the wills for sugaring this coming winter and spring. Objective: General Observation:Catheter, IV in dorsum of left hand, 1L supplemental O2 via nasal cannula, cryocuffs on each knee. Mental Status: Alert and orientated x3 Pain: 0/10 bilateral knees, 4/10 bilateral knees after IE. ROM: Right Upper Extremity: WNL throughout Left Upper Extremity: WNL throughout Right Lower Extremity: Hip flexion 100 (tested in sitting) AA abduction 30-35 in supine, knee flexion 85 AA in sitting, extension -8 degrees in bed. Ankle WFL all planes. Left Lower Extremity: Hip flexion 105 (in sitting) AA abduction 35 in supine, knee flexion 90 degrees in sitting, extension -5 degrees in bed. Ankle WFL in all planes. Strength: Right Upper Extremity: 5/5 throughout Left Upper Extremity: 5/5 throughout Right Lower Extremity: Palpable quad contraction with quad set. 4/5 hip flexion in sitting, 4-/5 hamstrings, 4/5 abduction in sitting. Unable to perform bent knee leg raise. 4/5 ankle DF and PF. Left Lower Extremity: Palpable quad contraction with quad set. Unable to perform bent knee leg raise. 4/5 hip flexion and abduction, 4-/5 hamstrings. 4 /5 ankle DF and PF. Sensation: Intact to light touch in bilateral ankles and feet. Bed Mobility/Transfers: Supine-sit: HOB 40 degrees with use of bedrail, min assist x1 for bilateral LE placement off edge of bed. Sit-Stand: min assist x1 to FWW with gait belt Stand-sit: CG for leg placement with cues to lower body weight with arms on armrest of chair. Sat for 15 minutes. Complaints of nausea. Sit-stand: Min assist x1 to FWW with verbal cues for proper hand placement for de-weighting off chair. Sit-supine: Min assist x1 for bilateral LE elevation onto bed. HOB 20 degrees. Gait: 5 steps times 2 with CGA and FWW. Also performed 10 weight shifts standing at FWW. Patient returned to bed following 15 minutes of sitting. Nursing was in the room distributing his medication followed by breakfast. Balance: Static Sitting: Good Dynamic Sitting: Good Static Standing: Fair Dynamic Standing: Fair Special Tests: Mobility Limitations Standardized Measure [facility] 6 clicks Basic Mobility Inpatient Short Form: Raw Score: 17 Standardized Score: 42.13 CMS Score: 50.57% CMS Modifier: CK Informed Consent/Education: Patient instructed in purpose of PT consult and plan of care. Assessment: Patient is a 62 year old male referred to physical therapy services with the diagnosis of s/p bilateral TKA. Patient presents with clinical signs and symptoms consistent with this diagnosis, as demonstrated by the following impairment level findings: impaired ROM, strength, motor control, muscle performance and LBP and bilateral knee pain. Impairments are contributing to the following functional limitations: as listed above and AMPA score CMS score 50.57%. Patient has good rehab potential. Patient is assessed as a Moderate [id number] complexity based on the following: History: as per PMH Examination: as per functional limitations listed above and [facility] Basic Mobility Inpatient Short Form. Presentation: evolving Decision Making: AMPA score CMS score 50.57% Goals: Goals X1 week 1. Supine-Sit : with supervision 2. Sit-Supine: SBA 3. Sit-Stand: supervision with FWW 4. Stand-Sit: supervision 5. Bed-Chair: SBA with FWW 6. Chair-Bed: SBA with FWW 7. Gait : SBA with FWW 100 feet x2. 8. Stairs: Up/down 3 steps with railing 9. Independent with home exercise program for TKA Plan of Care/Treatment Plan: 1-2x/day, 7 days/week x 1 week. Plan of care has been reviewed with the BACK TENDER providing the service under Physical Therapy direction. Initiate Physical Therapy intervention for strengthening, bed mobility, transfers, gait, stairs, balance training, use of assistive device. Patient was instructed in ankle pumps, quad sets and gentle ROM for bilateral knee flexion and extension. DISCHARGE RECOMMENDATIONS: Recommend D/C to home with follow up for outpatient PT rehabilitation. TREATMENT CODE/TIME: 45 minutes IE 8:00 G Codes in the area mobility of walking and moving around: current status [id number] CK; projected status GP [id number].
[2018-03-15] MEDS: Aspirin E.C. 81 MG TABEC PO ×2 (08:49→19:08)
[2018-03-15] MEDS: Benazepril 10 MG TAB 40 MG PO (08:50)
[2018-03-15] MEDS: Dexamethasone 4 MG TAB PO (08:50)
[2018-03-15] MEDS: Rivaroxaban 10 MG TABLET PO (08:50)
[2018-03-15] MEDS: Acetaminophen 500 MG TAB 1000 MG PO ×3 (08:51→21:12)
[2018-03-15] MEDS: amLODIPine 10 MG TAB PO (08:51)
[2018-03-15] MEDS: Celecoxib 200 MG CAP PO ×2 (08:52→19:08)
[2018-03-15] MEDS: Multivitamin TAB 1 TAB PO (08:52)
[2018-03-15] MEDS: Pantoprazole 40 MG TABCR PO (08:52)
[2018-03-15] MEDS: Gemfibrozil 600 MG TAB PO ×2 (08:52→17:12)
[2018-03-15] MEDS: Docusate Sodium 100 MG CAP PO (08:52)
[2018-03-15] MEDS: oxyCODONE 5 MG TAB PO ×2 (08:53→13:35)
--- NOTE | 2018-03-15 11:23 | NUR.NOTE ---
Nursing Note:at 10:30 I walked in and asked the paitent if he wanted ti get uo and changed and washed and he refused twice, my RN was notifyed.
[2018-03-15] MEDS: Metoprolol CR 25 MG TABCR PO (21:12)
[2018-03-16] VITALS (7 sets, daily range): BP systolic 117–135; BP diastolic 74–84; PULSE 57–81; RESP 16–20; TEMP 36.5–37.1; O2SAT 95–99
[2018-03-16] MEDS: oxyCODONE 5 MG TAB PO ×5 (03:32→17:15)
[2018-03-16] MEDS: Acetaminophen 500 MG TAB 1000 MG PO ×3 (05:26→22:12)
[2018-03-16 07:31] LABS: HGB 11.1 g/dL (13.5-17.5); Mean Corp. HGB Concentration 34.7 g/dL (32.0-36.0); Mean Corpuscular Hemoglobin 29.8 pg (27.0-33.0); Mean Corpuscular Volume 85.8 fL (80-95); Mean Platelet Volume 10.2 fL (8.0-11.0); Platelet Count 191 x1000/uL (130-400); RBC 3.73 m/cumm (4.50-6.00); RBC Distribution Width 12.6 % (11.8-14.1); White Blood Cell Count 14.25 k/cumm (4.4-10.8)
[2018-03-16 07:32] LABS: Anion Gap 10.1 mmol/L (3-11); BUN 13 mg/dL (7-18); CO2 23.9 mmol/L (21.0-32.0); CREATININE 0.63 mg/dL (0.70-1.30); Calcium 8.6 mg/dL (8.5-10.1); Chloride 106 mmol/L (98-107); Glucose 143 mg/dL (70-100); Potassium 4.3 mmol/L (3.5-5.1); Sodium 140 mmol/L (136-145)
[2018-03-16] MEDS: Gemfibrozil 600 MG TAB PO ×2 (08:21→16:32)
[2018-03-16] MEDS: Celecoxib 200 MG CAP PO ×2 (08:21→19:53)
[2018-03-16] MEDS: Pantoprazole 40 MG TABCR PO (08:21)
[2018-03-16] MEDS: Aspirin E.C. 81 MG TABEC PO ×2 (08:22→19:53)
[2018-03-16] MEDS: Docusate Sodium 100 MG CAP PO (08:22)
[2018-03-16] MEDS: amLODIPine 10 MG TAB PO (08:22)
[2018-03-16] MEDS: Multivitamin TAB 1 TAB PO (08:22)
[2018-03-16] MEDS: Dexamethasone 4 MG TAB PO (08:22)
[2018-03-16] MEDS: Rivaroxaban 10 MG TABLET PO (08:22)
[2018-03-16] MEDS: Benazepril 10 MG TAB 40 MG PO (08:22)
--- NOTE | 2018-03-16 08:22 | PDOC.CMPRO ---
- If Service Date Differs Date of service: 03/16/18 Time of Service: 08:22 Care Management Progress Note S/O: Gary is lying in bed this morning when CM visits. He is pleasant, engaged in conversation, and talkative. Gary reports that his knees are hurting d/t the block wearing off and he has just had oral pain medications administered. His back is reportedly feeling better than it did yesterday. Gary began working with PT yesterday and will continue to do so today. He continues to receive IV antibiotics and fluids. CM and patient discussed nutritional importance in relation to healing in light of Trinity's concerns regarding such. PT reports that Gary did very well with them this morning; they will continue to work with him until his discharge. A: 62 year old male post op day 2 bilateral knee DJD. P: Gary will discharge home when medically ready per MD. Anticipate patient will discharge with home health services- PT/OT and follow up with MD. Gary will transport via private vehicle with his , Trinity. CM will continue to offer support to patient, family, and care team regarding discharge planning and disposition.
--- NOTE | 2018-03-16 10:41 | PT.INTREAT ---
Date of service: 03/16/18 Time of Service: 10:41 PT Notes Inpatient Physical Therapy Treatment Note Date: 03/16/18 PRECAUTIONS:WBAT on B SUBJECTIVE: Gary states that the discomfort in B knees is worse today versus yesterday. He states that he is anxious about getting up and out of bed because he was nauseous when he got up yesterday. OBJECTIVE: PAIN: Patient c/o B quad discomfort with ther ex and weight bearing BED MOBILITY/TRANSFERS Supine-sit: S with HOB flat Sit-stand: SBA Stand-sit: SBA GAIT Assistive Device: FWW Weight bearing: WBAT on B Assist: SBA Distance: 20' x2 Deviation: Slow pace, step-through gait pattern THEREX: Patient completed a B LE strengthening and stabilization program, as per flow sheet. He requires some assist with SLR and hip abduction, bilaterally. Ends session with cryocuff to B knees. ASSESSMENT: Patient tolerated session well, with minimal complaints. He was able to tolerate a progression in his gait distance with FWW support, utilizing a step-through pattern. Patient would benefit from continued gait and transfer training as well as strengthening to improve ability to perform daily functional tasks with improved independence. PLAN: Continue with PT's POC TREATMENT CODE/TIME: 45 minutes; TAx2/TP
--- NOTE | 2018-03-16 11:36 | PHARADMIT ---
Admission Pharmacy Clinical Review bilateral knee DJD Code Status Full Code Current Weight 99.6 kg Renally Cleared and Narrow Therapeutic Index Meds Crcl ~90.00 mL/min current meds okay QTc Value / Action Taken BP Control, Fever BP 132/77 afebrile Electrolytes reviewed within normal limits DVT Prophylaxis on rivaroxaban Opiate Usage / Scheduled Bowel Regimen Ordered prn/prn Plt/SCr for Heparin / Enoxaparin plt 191 SCr 0.63 INR for Warfarin n/a H/H stable, WBC/Bands h/h 11.1/32.0 wbc 14.25 Antibiotic appropriateness n/a Cultures and Sensitivities n/a Surgical ABX d/c within 24 hr yes DM control / Insulin Dosing BG 143 none Heart Failure (Check EF%) (KINJAL's, B-Block, Diuretics) amlodipine, benazepril, metoprolol IV to PO Switch n/a Home Meds Reviewed ibuprofen may enhance the adverse effects of aspirin and may decrease the cardioprotective effect of aspirin Home Meds Not Ordered ibuprofen (PRN has other NSAID ordered), prednisone, testosterone Comments
[2018-03-16] MEDS: Metoprolol CR 25 MG TABCR PO (19:53)
[2018-03-17] MEDS: oxyCODONE 5 MG TAB PO ×4 (00:33→16:18)
[2018-03-17 04:09] VITALS: BP 139/82; PULSE 74; RESP 15; TEMP 36.4; O2SAT 98
[2018-03-17] MEDS: Acetaminophen 500 MG TAB 1000 MG PO ×3 (06:33→22:02)
[2018-03-17 07:10] VITALS: BP 124/78; PULSE 67; RESP 18; TEMP 37.1; O2SAT 96
--- NOTE | 2018-03-17 07:42 | W.PM.PROGNOT ---
Assessment and Plan (1) Osteoarthritis of both knees: Current visit: No Status: Chronic Gary is status post bilateral knee replacements. He is doing well. I am encouraged by his progress this far and I have encouraged him to slowly and steady increase. He should walk with nursing we will continue with rivaroxaban for DVT prophylaxis. We will continue physical therapy with anticipation of home discharge in the next 1-2 days. His hemoglobin is stable at this time at 11.1. Subjective Interval history since last seen: Gary reports be doing much better today. He has had some pain but it has been well treated with the oral agents. He feels more like himself today. He was able to take some steps today which was encouraging. He has been sitting in the chair this morning. He denies any fever, chills, shortness of breath, chest pain. He has been passing gas. His Carrasco catheter was removed. He denies any numbness or tingling. Exam Narrative Exam Narrative: Gary is in no acute distress. Alert and oriented x3. Evaluation of both knees show well adherent dressings. No drainage. There is ecchymosis seen around both knees. He is resting an approximate 5 degrees of extension of both. He is able to perform straight leg raise of both although it is weak on the left side. Both knees are stable to varus and valgus stress. Intact ankle dorsiflexion, ankle plantarflexion, great toe extension and flexion. Sensation intact light touch over the deep and superficial peroneal nerves and tibial nerve bilaterally. Both feet are warm well perfused with palpable PT and DP pulses. Objective Objective Clinical Data: Vital Signs Temperature 36.4 C L 03/17/18 04:09 Temperature Source Tympanic 03/17/18 04:09 Pulse 74 03/17/18 04:09 Pulse Rhythm Regular 03/17/18 00:15 Respiratory Rate 15 03/17/18 04:09 Respiratory Effort 03/17/18 00:15 Respiratory Depth Normal 03/17/18 00:15 Respiratory Pattern Normal 03/17/18 00:15 Blood Pressure 139/82 03/17/18 04:09 Pulse Oximetry 98 03/17/18 04:09 Respiratory End-tidal CO2 38 03/14/18 15:15 Oxygen Delivery Method Room Air 03/17/18 04:09 Oxygen Flow Rate 0 03/17/18 04:09 Pain Level 3 03/17/18 06:33 Comment 03/16/18 03:40 Intake & Output 03/16/18 03/16/18 03/17/18 11:59 23:59 11:59 Intake Total 1490 / 1490 600 / 600 Output Total 2250 / 2250 150 / 150 600 / 600 Balance -760 / -760 450 / 450 -600 / -600 Intake: IV 1000 / 1000 Oral 490 / 490 600 / 600 Output: Urine 2250 / 2250 150 / 150 600 / 600 Other: Urine Color Light Sujata Yellow Dark Sujata Urine Appearance Clear Clear Voiding Methods Urinal Urinal Urinal Laboratory Results WBC 14.25 k/cumm (4.4-10.8) H D 03/16/18 06:30 RBC 3.73 m/cumm (4.50-6.00) L 03/16/18 06:30 Hgb 11.1 g/dL (13.5-17.5) L 03/16/18 06:30 Hct 32.0 % (40.0-50.0) L 03/16/18 06:30 MCV 85.8 fL (80-95) 03/16/18 06:30 MCH 29.8 pg (27.0-33.0) 03/16/18 06:30 MCHC 34.7 g/dL (32.0-36.0) 03/16/18 06:30 RDW 12.6 % (11.8-14.1) 03/16/18 06:30 Plt Count 191 x1000/uL (130-400) 03/16/18 06:30 MPV 10.2 fL (8.0-11.0) 03/16/18 06:30 Sodium 140 mmol/L (136-145) 03/16/18 06:30 Potassium 4.3 mmol/L (3.5-5.1) 03/16/18 06:30 Chloride 106 mmol/L (98-107) 03/16/18 06:30 Carbon Dioxide 23.9 mmol/L (21.0-32.0) 03/16/18 06:30 Anion Gap 10.1 mmol/L (3-11) 03/16/18 06:30 BUN 13 mg/dL (7-18) D 03/16/18 06:30 Creatinine 0.63 mg/dL (0.70-1.30) L 03/16/18 06:30 Estimated GFR/1.73 m2 >= 60.00 (mL/min/1.73m2) 03/16/18 06:30 Glucose 143 mg/dL (70-100) H 03/16/18 06:30 Calcium 8.6 mg/dL (8.5-10.1) 03/16/18 06:30
[2018-03-17] MEDS: Normal Saline Flush 10 ML SYR IV (07:53)
[2018-03-17] MEDS: Aspirin E.C. 81 MG TABEC PO ×2 (07:54→20:26)
[2018-03-17] MEDS: Multivitamin TAB 1 TAB PO (07:54)
[2018-03-17] MEDS: amLODIPine 10 MG TAB PO (07:54)
[2018-03-17] MEDS: Benazepril 10 MG TAB 40 MG PO (07:54)
[2018-03-17] MEDS: Pantoprazole 40 MG TABCR PO (07:54)
[2018-03-17] MEDS: Celecoxib 200 MG CAP PO ×2 (07:55→20:26)
[2018-03-17] MEDS: Gemfibrozil 600 MG TAB PO ×2 (07:55→16:19)
[2018-03-17] MEDS: Rivaroxaban 10 MG TABLET PO (07:55)
--- NOTE | 2018-03-17 09:13 | PT.INTREAT ---
Date of service: 03/17/18 Time of Service: 09:13 PT Notes Inpatient Physical Therapy Treatment Note Date: 03/17/18 PRECAUTIONS:WBAT on B SUBJECTIVE: Gary states that he walked with nsg yesterday afternoon. He states that he is feeling better today, although he's not sure that he's ready to go home yet. OBJECTIVE: PAIN: Patient c/o pain with active knee extension, bilaterally. BED MOBILITY/TRANSFERS Sit-stand: SBA Stand-sit: S GAIT Assistive Device: FWW Weight bearing: WBAT B Assist: S Distance: 60' x2 Deviation: Slow pace THEREX: Patient performed a seated ther ex program for LE strengthening and stabilization, as per flow sheet. He ends with cryocuff to bilateral knees. ASSESSMENT: Patient tolerated a progression in gait distance today, with FWW support. He is lacking extension, bilaterally, and has discomfort and difficulty with active extension. Patient would benefit from continued gait and transfer training for improved mobility, as well as continued work on improving extension in bilateral knees. PLAN: Continue with PT's POC TREATMENT CODE/TIME: 40 minutes; TAx2/TP
--- NOTE | 2018-03-17 09:20 | PDOC.CMPRO ---
- If Service Date Differs Date of service: 03/17/18 Time of Service: 09:20 Care Management Progress Note S/O: Gary is sitting up in his chair when this proposal lead writer visits this morning. Gary states that he worked with PT this morning and it went well. He states that his [facility] is getting a new bed today for him to use when he gets home. He states that Dr. Tate has not been in as of yet, and that he believes he will be discharged today or tomorrow. CM discussed DC plans and Gary states that he would like home health PT/OT at time of DC. He has all necessary DME. A: 62 year old male post op day 2 bilateral knee DJD. P: Gary will discharge home when medically ready per MD. Anticipate patient will discharge with home health services- PT/OT and follow up with MD. Gary will transport via private vehicle with his , [facility]. CM will continue to offer support to patient, family, and care team regarding discharge planning and disposition.
[2018-03-17] MEDS: Polyethylene Glycol 3350 17 GM PACKET PO (10:36)
[2018-03-17 11:10] VITALS: BP 125/77; PULSE 66; RESP 20; TEMP 36.9; O2SAT 95
--- NOTE | 2018-03-17 12:16 | W.PM.PROGNOT ---
Assessment and Plan (1) Osteoarthritis of both knees: Current visit: No Status: Chronic Gary is status post bilateral knee replacements. He is doing well. I am encouraged by his progress this far and I have encouraged him to slowly and steady increase. He should walk with nursing we will continue with rivaroxaban for DVT prophylaxis. We will continue physical therapy with anticipation of home discharge tomorrow. No acute complications. Subjective Interval history since last seen: Gary continues to make slow progress. He was able to ambulate farther this morning. He still is limited but is gaining his independence. His pain is well controlled. He denies any fever, chills, shortness of breath, chest pain. He has been passing gas. He denies any numbness or tingling. Exam Narrative Exam Narrative: Gary is in no acute distress. Alert and oriented x3. Evaluation of both knees show well adherent dressings. No drainage. There is ecchymosis seen around both knees. He is resting an approximate 5 degrees of extension of both. He is able to perform straight leg raise of both although it is weak on the left side. Both knees are stable to varus and valgus stress. Intact ankle dorsiflexion, ankle plantarflexion, great toe extension and flexion. Sensation intact light touch over the deep and superficial peroneal nerves and tibial nerve bilaterally. Both feet are warm well perfused with palpable PT and DP pulses. Objective Objective Clinical Data: Vital Signs Temperature 36.9 C 03/17/18 11:10 Temperature Source Tympanic 03/17/18 11:10 Pulse 66 03/17/18 11:10 Pulse Rhythm Regular 03/17/18 07:40 Respiratory Rate 20 03/17/18 11:10 Respiratory Effort 03/17/18 07:40 Respiratory Depth Normal 03/17/18 07:40 Respiratory Pattern Normal 03/17/18 07:40 Blood Pressure 125/77 03/17/18 11:10 Pulse Oximetry 95 03/17/18 11:10 Respiratory End-tidal CO2 38 03/14/18 15:15 Oxygen Delivery Method Room Air 03/17/18 11:10 Oxygen Flow Rate 0 03/17/18 11:10 Pain Level 3 03/17/18 08:01 Comment 03/16/18 03:40 Intake & Output 03/16/18 03/17/18 03/17/18 23:59 11:59 23:59 Intake Total 600 / 600 Output Total 150 / 150 600 / 600 Balance 450 / 450 -600 / -600 Intake: Oral 600 / 600 Output: Urine 150 / 150 600 / 600 Other: Urine Color Yellow Dark Sujata Urine Appearance Clear Clear Voiding Methods Urinal Urinal Laboratory Results WBC 14.25 k/cumm (4.4-10.8) H D 03/16/18 06:30 RBC 3.73 m/cumm (4.50-6.00) L 03/16/18 06:30 Hgb 11.1 g/dL (13.5-17.5) L 03/16/18 06:30 Hct 32.0 % (40.0-50.0) L 03/16/18 06:30 MCV 85.8 fL (80-95) 03/16/18 06:30 MCH 29.8 pg (27.0-33.0) 03/16/18 06:30 MCHC 34.7 g/dL (32.0-36.0) 03/16/18 06:30 RDW 12.6 % (11.8-14.1) 03/16/18 06:30 Plt Count 191 x1000/uL (130-400) 03/16/18 06:30 MPV 10.2 fL (8.0-11.0) 03/16/18 06:30 Sodium 140 mmol/L (136-145) 03/16/18 06:30 Potassium 4.3 mmol/L (3.5-5.1) 03/16/18 06:30 Chloride 106 mmol/L (98-107) 03/16/18 06:30 Carbon Dioxide 23.9 mmol/L (21.0-32.0) 03/16/18 06:30 Anion Gap 10.1 mmol/L (3-11) 03/16/18 06:30 BUN 13 mg/dL (7-18) D 03/16/18 06:30 Creatinine 0.63 mg/dL (0.70-1.30) L 03/16/18 06:30 Estimated GFR/1.73 m2 >= 60.00 (mL/min/1.73m2) 03/16/18 06:30 Glucose 143 mg/dL (70-100) H 03/16/18 06:30 Calcium 8.6 mg/dL (8.5-10.1) 03/16/18 06:30
--- NOTE | 2018-03-17 14:09 | PT.INTREAT ---
Date of service: 03/17/18 Time of Service: 14:10 PT Notes Inpatient Physical Therapy Treatment Note Date: 03/17/18 PRECAUTIONS: WBAT B SUBJECTIVE: Gary states that he has been sitting up all morning, and that he is feeling pretty good. OBJECTIVE: PAIN: Patient c/o B knee pain with transfers, weight bearing, and ther ex BED MOBILITY/TRANSFERS Sit-supine: S with HOB flat Sit-stand: SBA Stand-sit: S GAIT Assistive Device: FWW Weight bearing: WBAT B Assist: S Distance: 75' x2 Deviation: Standing rest x3, cueing for upright posture THEREX: Patient performed a LE strengthening and stabilization program, as per flow sheet. He was able to tolerate a slight progression in his ther ex program today, see flow sheet for modifications made to reps. Ends with cryocuff to B knees. ASSESSMENT: Patient tolerated a progression in gait distance and ther ex this afternoon, with some c/o pain in B knees. Patient also required cueing for upright posture and several standing rests with gait training with FWW support. PLAN: Continue with PT's POC TREATMENT CODE/TIME: 30 minutes; TA/TP
--- NOTE | 2018-03-17 16:02 | CHAPLAIN ---
Gary told me about his double knee surgery and explained that he hopes he is saving himself some recovery time and that'll be fully recovered in time to sugar this winter. 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
[2018-03-17 16:31] VITALS: BP 130/75; PULSE 83; RESP 18; TEMP 37.4; O2SAT 97
[2018-03-17 19:51] VITALS: BP 133/81; PULSE 84; RESP 18; TEMP 37.2; O2SAT 95
[2018-03-17] MEDS: Metoprolol CR 25 MG TABCR PO (20:26)
[2018-03-18 00:13] VITALS: BP 125/84; PULSE 60; RESP 18; TEMP 36.7; O2SAT 96
[2018-03-18] MEDS: oxyCODONE 5 MG TAB PO ×3 (01:28→15:47)
[2018-03-18] MEDS: Acetaminophen 500 MG TAB 1000 MG PO ×2 (06:08→15:47)
[2018-03-18 07:55] VITALS: BP 151/90; PULSE 86; RESP 18; TEMP 37.2; O2SAT 96
[2018-03-18] MEDS: amLODIPine 10 MG TAB PO (08:05)
[2018-03-18] MEDS: Pantoprazole 40 MG TABCR PO (08:05)
[2018-03-18] MEDS: Normal Saline Flush 10 ML SYR IV (08:05)
[2018-03-18] MEDS: Aspirin E.C. 81 MG TABEC PO (08:05)
[2018-03-18] MEDS: Gemfibrozil 600 MG TAB PO (08:06)
[2018-03-18] MEDS: Celecoxib 200 MG CAP PO (08:06)
[2018-03-18] MEDS: Rivaroxaban 10 MG TABLET PO (08:06)
[2018-03-18] MEDS: Benazepril 10 MG TAB 40 MG PO (08:06)
[2018-03-18] MEDS: Multivitamin TAB 1 TAB PO (08:07)
--- NOTE | 2018-03-18 09:17 | PT.INTREAT ---
Date of service: 03/18/18 Time of Service: 09:17 PT Notes Inpatient Physical Therapy Treatment Note Date: 03/18/18 PRECAUTIONS:WBAT B SUBJECTIVE: Gary states that he did not have a good night last night. He feels discouraged and feels that he has regressed since yesterday, however, wants to go home today. OBJECTIVE: PAIN: Patient c/o pain in B knees with ther ex and gait training BED MOBILITY/TRANSFERS Supine-sit: I Sit-stand: S Stand-sit: S Bed-Chair: S GAIT Assistive Device: FWW Weight bearing: WBAT B Assist: S Distance: 5' + 180' Deviation: Standing rest x3, c/o feeling weak THEREX: Patient completed a LE strengthening and stabilization program, as per flow sheet. ASSESSMENT: Patient tolerated session with some c/o pain in B knees, although was able to tolerate a progression in gait distance with FWW support and standing rests. He would benefit from continued gait and transfer training for improved mobility. PLAN: Continue with PT's POC TREATMENT CODE/TIME: 40 minutes; TAx2/TP
--- NOTE | 2018-03-18 09:33 | PT.INDS ---
Date of service: 03/18/18 Time of Service: 09:33 PT Notes Inpatient Physical Therapy Discharge Summary Date: 03/18/18 Dates of Service: 03/15/18-03/18/18 SUBJECTIVE: NT OBJECTIVE: 03/15/18-03/18/18 BED MOBILITY/TRANSFERS: Supine-sit : independent Sit-supine : supervision Sit-stand : supervision Stand-sit : supervision Bed-Chair : supervision with FWW Chair-bed : supervision with FWW GAIT: supervision with FWW 180ft WBAT B LE's BALANCE: Static sitting: normal Dynamic sitting: normal Static standing: fair Dynamic standing: fair ASSESSMENT: Pt was seen for 5 PT Visits. Progressed from Sudhakar standing transfers to supervision, from CGA gait with FWW 5 steps to supervision gait with FWW 180ft, sitting balance improved from good to fair. Pt has met therapy goals and is ready for discharge to home when medically cleared, pt would like to discharge to home today. GOALS Goals X1 week 1. Supine-Sit : with supervision 2. Sit-Supine: SBA 3. Sit-Stand: supervision with FWW 4. Stand-Sit: supervision 5. Bed-Chair: SBA with FWW 6. Chair-Bed: SBA with FWW 7. Gait : SBA with FWW 100 feet x2. 8. Stairs: Up/down 3 steps with railing 9. Independent with home exercise program for TKA Pt met goals 1, 2, 3, 4, 5, 6, 7, 9. did not meet goa # 8 plans to stay on first floor at home DISCHARGE RECOMMENDATIONS: Home, home or outpatient PT follow up G Codes in the area mobility of walking and moving around: projected status GP [id number], discharge status [id number] Sharon De Leon PT
[2018-03-18 11:20] VITALS: BP 126/73; PULSE 89; RESP 19; TEMP 36.9; O2SAT 98
--- NOTE | 2018-03-18 12:04 | DSE_ITS ---
Date of service: 03/18/18 Time of Service: 12:01 DS: Diagnosis Discharge Diagnosis (1) Osteoarthritis of both knees: Status: Chronic Discharge Plan Disposition Patient Disposition: HOME W/HOME HEALTH SERVICE Condition: Good Discharge Details Reason For Visit: BILATERAL KNEE DJD Admit Date/Time: 03/14/18 08:23 Admit Provider: Eliseo Tate Attending Provider: Eliseo Tate Primary Care Provider: Shai Mcdaniel Hospital Course Hospital Course: Patient was admitted to the medical/surgical floor following the procedure. It was tolerated well without any notable medical, surgical, or anesthetic complications. Mobilization began postoperatively. The portillo catheter was removed and voiding spontaneously. Vitals were stable. Physical therapy worked with the patient and was cleared for discharge home. No acute medical issues. Home Meds and New Rx's Prescriptions: New celecoxib 200 mg capsule 200 mg PO BID PRN (Reason: pain) Qty: 60 RF: 1 acetaminophen 500 mg capsule 1,000 mg PO Q8H PRN (Reason: pain) Qty: 90 RF: 0 oxycodone 5 mg tablet 5 mg PO Q4H Qty: 18 RF: 0 rivaroxaban 10 mg tablet 10 mg PO DAILY Qty: 21 RF: 0 Continue multivitamin [Once Daily] 1 EACH tablet 1 ea PO DAILY RF: 0 testosterone cypionate 100 MG/1 ML oil 100 mg IM q 2 weeks Qty: 2 RF: 5 syringe (disposable) 1 EACH syringe 1 ea Miscellaneous q 2 weeks Qty: 25 RF: 0 needle (disp) 21 G [BD Regular Bevel Platter] 1 EACH needle 1 ea Miscellaneous q 2 weeks Qty: 25 RF: 0 ibuprofen 800 MG tablet 800 mg PO BID PRN Qty: 180 RF: 4 gemfibrozil [Lopid] 600 MG tablet 600 mg PO BID Qty: 180 RF: 4 pantoprazole [Protonix] 40 MG tablet,delayed release (DR/EC) 40 mg PO DAILY Qty: 90 RF: 4 amlodipine-benazepril [Lotrel] 1 EACH capsule 1 tab-cap PO DAILY Qty: 90 RF: 4 Metoprolol Succinate 25 MG TAB.ER.24H 25 mg PO DAILY Qty: 90 RF: 3 needle (disp) 21 G [BD Regular Bevel Platter] 1 EACH needle 1 ea Miscellaneous q 2 weeks Qty: 12 RF: 2 Discontinued aspirin [Aspir-Low] 81 MG tablet,delayed release (DR/EC) 81 mg PO HS RF: 0 acetaminophen [Tylenol Extra Strength] 500 MG tablet 650 mg PO BID RF: 0 prednisone 20 mg Tablet 20 mg PO PRN PRNRF: 0 Discharge Instructions Instructions: Total Knee Discharge Instructions Additional Instructions: Dr. Tate?s Total Knee Discharge Instructions Activity: The most important activity is to walk. You should try to take short walks a few times a day. It is important that when resting you work on keeping the knee straight. Avoid putting a pillow behind the knee as this will encourage flexion. Work on range of motion exercises as provided by Physical Therapy. - You should wear the MISAEL hose on both legs for 4 weeks. Dressing: Keep the surgical dressing in place for at least one week. After the first week it may be removed and replace with light gauze and tape or nothing. It may get wet after 3 days but avoid soaking the dressing. If it gets wet, just lightly pat dry. Medications: - You should take Tylenol and anti-inflammatory (Celebrex or Meloxicam) as your primary pain control medications - You have been prescribed a stronger pain medication (Oxycodone or Dilaudid) for breakthrough pain, take as needed as prescribed. - You will be taking Rivaroxaban 10mg once a day for DVT prevention unless instructed otherwise. - If you have constipation you should take Colace or Miralax (both over-the- counter). It takes most people 3-4 days to have a bowel movement. Follow-up: 2 weeks 1. Encounter Date and Reason I certify that YUE BAKER was seen by Eliseo Tate on 03/18/18 and that I had a [id number] encounter with this patient that meets the physician face to face encounter requirements. 2. Clinical Findings Supporting Skilled Need and Homebound Status I certify that home health services are medically necessary, include either intermittent prison and/or physical/speech therapy, and that this patient is homebound in that absences from the home require considerable and taxing effort and are infrequent or of short duration, or are attributable to the need to receive medical care. [X] (a) Attached documentation from encounter provides clinical findings supporting skilled need and homebound status (including what assistance patient requires to leave the home). The encounter with the patient was in whole, or in part, for the following medical condition, which is the primary reason for home health care: BILATERAL KNEE DJD Longterm: Physical Therapy: Gary would benefit from physical therapy to address his significant weakness, range of motion restrictions, and gait abnormalities. He is status post bilateral total knee arthroplasties. Initial physical therapy should focus on range of motion, especially extension, as well as quad strengthening and ambulation capacity. Speech Therapy: Homebound: Lamberto is unable to leave his home unassisted. He has significant weakness and gait abnormalities preventing leaving his home. 3. Certification and Authentication I certify that I composed the above information based on my clinical judgement relating to this patient's medical condition and, if applicable, clinical findings communicated to me by the NPP or inpatient physician who performed the Home Health Referral. All further orders will be obtained through Dr. Tate Stand Alone Forms: Nursing Discharge Form Referrals: Eliseo Tate MD [ [facility] STAFF PHYSICIAN] - Activity:: Activity as Tolerated Equipment/Supplies:: Walker Diet:: Normal Diet Discharge Orders Discharge Orders: Discharge Order (Routine); Ordered 03/18/18 Ordered By: Eliseo Tate DS: Data Vitals/I&O Vitals and I&O: Vital Signs Temperature 36.9 C 03/18/18 11:20 Temperature Source Tympanic 03/18/18 11:20 Pulse 89 03/18/18 11:20 Pulse Rhythm Regular 03/18/18 09:25 Respiratory Rate 19 03/18/18 11:20 Respiratory Effort 03/18/18 09:25 Respiratory Depth Normal 03/18/18 09:25 Respiratory Pattern Normal 03/18/18 09:25 Blood Pressure 126/73 03/18/18 11:20 Pulse Oximetry 98 03/18/18 11:20 Respiratory End-tidal CO2 38 03/14/18 15:15 Oxygen Delivery Method Room Air 03/18/18 11:20 Oxygen Flow Rate 0 03/18/18 11:20 Pain Level 4 03/18/18 09:07 Comment 03/16/18 03:40 Intake & Output 03/17/18 03/17/18 03/18/18 11:59 23:59 11:59 Intake Total 250 / 250 960 / 960 Output Total 600 / 600 350 / 350 300 / 300 Balance -600 / -600 -100 / -100 660 / 660 Intake: Oral 250 / 250 960 / 960 Output: Urine 600 / 600 350 / 350 300 / 300 Other: Urine Color Dark Sujata Yellow Yellow Urine Appearance Clear Clear Clear Comment voiding well in urinal or toilet Voiding Methods Toilet Urinal Urinal Urinal
--- NOTE | 2018-03-18 13:26 | PDOC.CMDIS ---
- If Service Date Differs Date of service: 03/18/18 Time of Service: 13:26 LACE Index Scoring Tool - Questions: Length of Stay (in days): 4 - 6 Acuity (Admit via E.D.?): No E.D. Visits: 1 - Answers: Total Score: 5 Risk of Readmission: Low Risk Care Management Discharge Reason for Hospitalization: Bilateral knee DJD. Discharge Plan: Gary will return home today with home health PT services. CM spoke with CHARU Rodríguez, to alert of discharge. Gary will F/U with Dr. Tate and plan of care as prescribed. his [facility] will transport. Patient/Family Education Needs: review DC instructions, any limitations, and discuss Ask Me Three Services Needed at Discharge: Home Health Care Services (PT - CHARU Rodríguez, notified)
== END 2018-03-18 16:12 | disposition home health service (06) | DRG 462 ==
LOC: PDS 08:24 → MS 14:59
PROVIDERS: Admitting Provider Student in an Organized Health Care Education/Training Program; PCP Family Medicine; Visit Provider Student in an Organized Health Care Education/Training Program
PROC: 0SRD0J9 Replacement of Left Knee Joint with Synthetic Substitute, Cemented, Open Approach (ICD-10-PCS; CPT 27447; principal; 2018-03-14 10:15)
DX: M17.0 Bilateral primary osteoarthritis of knee (principal); Z96.653 Presence of artificial knee joint, bilateral; I10 Essential (primary) hypertension; E78.5 Hyperlipidemia, unspecified; K21.9 Gastro-esophageal reflux disease without esophagitis
CPT/HCPCS: 27447; 36415; 80048; 85027; 97110; 97162; 97530; NC; J0690; J2250; J2405; J3010; J8540

== ENCOUNTER 2018-04-02 09:30 | Outpatient (CLI) | payer OTHER, SELFPAY ==
--- NOTE | 2018-04-02 09:17 | DI.RAD_ITS ---
SYMPTOMS/DIAGNOSIS: S/P TKA LEG LENGTH: The left leg measures 88 cm. The right leg 87 cm. Bilateral knee prostheses are noted apparently in good position and surrounding bone intact. LEFT KNEE: A lateral projection of the left knee is analyzed in conjunction with the frontal image previously obtained. A TKR is noted. The prosthesis in excellent position and surrounding bone intact. RIGHT KNEE: A lateral image of the right knee was performed. When analyzed in conjunction with the frontal images previously obtained, a total knee prostheses is in good position and surrounding bone intact.
== END 2018-04-02 09:50 ==
PROVIDERS: PCP Family Medicine; Visit Provider Student in an Organized Health Care Education/Training Program
DX: Z96.653 Presence of artificial knee joint, bilateral (principal); Z47.1 Aftercare following joint replacement surgery
CPT/HCPCS: 73560; 77073

== ENCOUNTER 2018-04-25 15:20 | Outpatient (CLI) | payer OTHER, SELFPAY ==
--- NOTE | 2018-04-25 12:27 | DI.RAD_ITS ---
SYMPTOM/DIAGNOSIS: LOW BACK PAIN, M54.9, DORSALGIA LUMBOSACRAL SPINE: Five views were obtained. There is a slight biconvex thoracolumbar scoliosis. There is multi level disc space narrowing throughout the lumbar spine with vacuum phenomenon at multiple levels consistent with disc degeneration. Moderate hypertrophic spurring of the vertebral endplates is noted and to a lesser degree, facet degenerative hypertrophic changes are also noted. No evidence of spondylolysis or spondylolisthesis. No compression fracture is seen. CONCLUSION: DJD and disc degeneration throughout the lumbar spine.
== END 2018-04-25 15:40 ==
PROVIDERS: PCP Family Medicine; Visit Provider Family Medicine
DX: M54.5 Low back pain (principal); M51.36 Other intervertebral disc degeneration, lumbar region; M47.816 Spondylosis without myelopathy or radiculopathy, lumbar region
CPT/HCPCS: 72110

== ENCOUNTER 2018-05-29 01:49 | Outpatient (CLI) | payer OTHER, SELFPAY ==
--- NOTE | 2018-05-29 13:48 | DI.MRI_ITS ---
SYMPTOMS/DIAGNOSIS: LOW BACK PAIN, M54.5 MRI OF THE LUMBAR SPINE: Comparison is 04/02/17. The conus medullaris has a normal appearance and location. At L5-S1, there is disc desiccation, degenerative endplate signal changes and a small to moderate-sized central disc herniation. No nerve root compression is seen. No significant central spinal canal stenosis is present. There are degenerative changes of the facets at this level. Moderately severe bilateral neural foraminal narrowing is seen, resulting in mild compression of the exiting nerve roots. At L4-L5, there is disc desiccation and a diffuse disc bulge. There are hypertrophic changes of the facets and ligamentum flavum causing moderate narrowing of the central spinal canal. There is moderately severe right neural foraminal narrowing compressing the exiting nerve root. There is marked narrowing of the left neural foramen, compressing the exiting nerve root. At L3-L4, there is degenerative disc disease. Endplate degenerative signal changes are present. There is a diffuse disc bulge. Hypertrophic changes of the facets are seen. There is mild narrowing of the central spinal canal. There is moderately severe narrowing of the right neural foramen with compression of the exiting nerve root. There is moderate narrowing of the left neural foramen noted. At L2-L3, there is degenerative disc disease and endplate degenerative signal changes. There is a central disc herniation. There is mild to moderate narrowing of the central spinal canal. Mild narrowing of the neural foramen is seen bilaterally, but no definite nerve root compression is seen. At L1-L2, there is a diffuse disc bulge. There is mild narrowing of the central spinal canal. Degenerative changes of the facets are seen. There is mild bilateral neural foraminal narrowing without definite compression of the nerve root. Apart from the degenerative endplate signal changes, marrow signal int he lumbar spine appears within normal limits and stable. IMPRESSION: Marked multilevel degenerative changes in the lumbar spine resulting in central spinal canal and neural foraminal stenosis as described above.
== END 2018-05-29 02:09 ==
PROVIDERS: PCP Family Medicine; Visit Provider Family Medicine
DX: M54.5 Low back pain (principal); M51.36 Other intervertebral disc degeneration, lumbar region; M48.061 Spinal stenosis, lumbar region without neurogenic claudication
CPT/HCPCS: 72148

== ENCOUNTER 2018-06-11 12:46 | Outpatient (CLI) | payer OTHER, SELFPAY ==
[2018-06-11 12:49] VITALS: PULSE 91; RESP 16; TEMP 36.7; O2SAT 98
[2018-06-11] MEDS: Omnipaque 240 MG/ML 50 ML BTL IJ (13:33)
[2018-06-11] MEDS: Bupivacaine 0.5% Pres-Free 30 ML VIAL IJ (13:33)
--- NOTE | 2018-06-11 13:33 | DI.RAD_ITS ---
SYMPTOMS/DIAGNOSIS: LUMBAR SPONDYLOSIS PAIN CLINIC LUMBAR SPINE: Fluoroscopy Time: 22.1 sec Fluoroscopy was provided for Dr. Dumnot for guidance with lumbar spine Pain Clinic injection. Please see procedure note for details.
[2018-06-11 13:40] VITALS: BP 145/94; PULSE 79; RESP 15; O2SAT 99
--- NOTE | 2018-06-11 13:47 | PDOC.PAIN ---
Pain Clinic Procedure Note Current Active Problems Problem Status Onset Lumbosacral spondylosis without myelopathy Acute Lumbar/Sacral Medial Branch Blocks YUE BAKER has been referred to the [facility] for lumbar/sacral medial branch blocks. COMMENTS: Patient has right low back pain with lumbar spondylosis Patient was interviewed and the medical record reviewed. There were no medical, pharmacologic, radiographic or other structural contraindications to attempting fluoroscopically guided local anesthetic lumbar/sacral medial branch blocks. Risks and expected side effects as well as potential benefit of the procedure were reviewed and voiced concerns addressed. The printed consent form was signed and witnessed. Standard time-out procedure was performed. Patient was placed in the prone position on the fluoroscopy table and automated blood pressure cuff and pulse oximeter applied. The skin entry points for approaching the anatomic target points of the segmental medial branches of {right L3, 4, 5} were identified with anfluoroscopy and marked. Following thorough Chlorhexadine preparation of the skin and draping and 1% lidocaine infiltration of the skin entry points and subcutaneous tissues, a 22 gauge spinal needle was placed under fluoroscopic guidance down on to the target point for each respective segmental medial branch.Position was confirmed in A/P, oblique and lateral views with 0.25ml of omnipaque 240. At each point .5ml 0.5% Bupivacaine was injected. Vital signs were stable throughout the procedure and were as recorded in the docflowsheet by the nursing staff. Follow up plans and appointments were discussed and was instructed to keep careful note of how the usual pain was modified by these injections. Specifically was asked to keep a pain diary for the next 24 hours using a numeric pain scale of 0-10 and report these results at the follow-up visit. Post procedure instruction was given as documented in the nursing documentation and having met discharge criteria. Patient was discharged from the [facility]. Based on the medial branches blocked today, if the patient has adequate relief and we are able to proceed to radiofrequency ablation, the treatment should result in the denervation of the {right L4-5,L5-S1 FACET JOINTS}. We would expect to denervate a total of {2} facets during the radiofrequency ablation. COMMENTS: Pain went from 5/10-0/10. He will follow-up for either second medial branch block with 2% lidocaine or radiofrequency ablation depending his insurance if he needs to criteria. CC: Shai Mcdaniel MD
== END 2018-06-11 13:06 ==
PROVIDERS: PCP Family Medicine; Visit Provider Anesthesiology Pain Medicine
DX: M47.817 Spondylosis without myelopathy or radiculopathy, lumbosacral region (principal)
CPT/HCPCS: 64493; 64494; 64495; 72100; Q9967

== ENCOUNTER 2018-06-25 10:06 | Outpatient (CLI) | payer OTHER, SELFPAY ==
--- NOTE | 2018-06-25 06:00 | DI.RAD_ITS ---
SYMPTOMS/DIAGNOSIS: LUMBAR SPONDYLOSIS, LUMBAR MEDIAL BRANCH BLOCK C-ARM FLUOROSCOPY: Fluoroscopy Time: 19.1 sec C-arm fluoroscopy was utilized by Dr. Dumont during reported lumbar medial branch block. Hardcopy shows injections on the right at what appear to be the L 3 - 4, L 4 - 5 and L 5 - S 1 levels.
[2018-06-25 10:16] VITALS: BP 133/78; PULSE 98; RESP 20; TEMP 36.7; O2SAT 97
[2018-06-25 11:36] VITALS: BP 158/84; PULSE 99; RESP 15; O2SAT 98
[2018-06-25] MEDS: Omnipaque 240 MG/ML 50 ML BTL IJ (11:46)
[2018-06-25] MEDS: Lidocaine 2% Pres-Free 5 ML VIAL IJ (11:48)
--- NOTE | 2018-06-25 11:49 | PDOC.PAIN ---
Pain Clinic Procedure Note Current Active Problems Problem Status Onset Lumbosacral spondylosis without myelopathy Acute Lumbar/Sacral Medial Branch Blocks YUE BAKER has been referred to the [facility] for lumbar/sacral medial branch blocks. COMMENTS: Patient had good relief from previous MBB Patient was interviewed and the medical record reviewed. There were no medical, pharmacologic, radiographic or other structural contraindications to attempting fluoroscopically guided local anesthetic lumbar/sacral medial branch blocks. Risks and expected side effects as well as potential benefit of the procedure were reviewed and voiced concerns addressed. The printed consent form was signed and witnessed. Standard time-out procedure was performed. Patient was placed in the prone position on the fluoroscopy table and automated blood pressure cuff and pulse oximeter applied. The skin entry points for approaching the anatomic target points of the segmental medial branches of {right/ L3,4,5} were identified with anfluoroscopy and marked. Following thorough Chlorhexadine preparation of the skin and draping and 1% lidocaine infiltration of the skin entry points and subcutaneous tissues, a 22 gauge spinal needle was placed under fluoroscopic guidance down on to the target point for each respective segmental medial branch.Position was confirmed in A/P, oblique and lateral views with 0.25ml of omnipaque 240. At each point .5ml 2% lidocaine was injected. Vital signs were stable throughout the procedure and were as recorded in the docflowsheet by the nursing staff. Follow up plans and appointments were discussed and was instructed to keep careful note of how the usual pain was modified by these injections. Specifically was asked to keep a pain diary for the next 24 hours using a numeric pain scale of 0-10 and report these results at the follow-up visit. Post procedure instruction was given as documented in the nursing documentation and having met discharge criteria. Patient was discharged from the [facility]. Based on the medial branches blocked today, if the patient has adequate relief and we are able to proceed to radiofrequency ablation, the treatment should result in the denervation of the {right/ L4-5,L5-S1 FACET JOINTS}. We would expect to denervate a total of {2} facets during the radiofrequency ablation. COMMENTS: Pain went from 5/10 to 0/10. He will f/u for RF if meets criteria. CC: Shai Mcdaniel MD
== END 2018-06-25 10:26 ==
PROVIDERS: PCP Family Medicine; Visit Provider Anesthesiology Pain Medicine
DX: M47.817 Spondylosis without myelopathy or radiculopathy, lumbosacral region (principal)
CPT/HCPCS: 64493; 64494; 64495; 72100; Q9967

== ENCOUNTER 2018-07-08 07:29 | Outpatient (CLI) | payer OTHER, SELFPAY ==
[2018-07-08 07:36] VITALS: BP 138/88; PULSE 78; RESP 20; TEMP 37; O2SAT 98
[2018-07-08] MEDS: Midazolam 2 MG/2 ML VIAL IVP (08:28)
[2018-07-08] MEDS: fentaNYL 100 MCG/2 ML VIAL IVP ×2 (08:28→08:38)
[2018-07-08] MEDS: Lactated Ringers 1,000 ML 80 ML IV (08:31)
[2018-07-08 08:58] VITALS: BP 150/93; PULSE 78; RESP 20; O2SAT 98
--- NOTE | 2018-07-08 09:05 | DI.RAD_ITS ---
SYMPTOM/DIAGNOSIS: LUMBAR SPONDYLOSIS, LUMBAR RADIOFREQUENCY ABLATION C-ARM: Fluoroscopy Time: 63.6 seconds Fluoroscopy was utilized by Dr. Lopez during the performance of a lumbar radiofrequency ablation. Please refer to the procedure report for complete details.
--- NOTE | 2018-07-08 09:07 | PDOC.PAIN_ITS ---
Pain Clinic Procedure Note Current Active Problems Problem Status Onset Lumbosacral spondylosis without myelopathy Acute LUMBAR/SACRAL MEDIAL BRANCH RADIOFREQUENCY WITH THE COOLIEF MACHINE YUE BAKER has been referred to the [facility] for radiofrequency treatment of chronic axial back pain. YUE has had long standing back pain thought to be facet joint generated and which has been refractory to other therapies. Local anesthetic medial branch blocks or intra- articular facet joint injections resulted in YUE reporting reduction of the usual axial component of pain for at least the duration of the local anesthetic effect. COMMENTS:He did great with the LMBBs. Pre-procedure VAS was 7/10 Patient was interviewed and the medical record reviewed. There were no medical, pharmacologic, radiographic or other structural contraindications to attempting fluoroscopically guided radiofrequency treatment. Risks and expected side effects as well as potential benefit of the procedure were reviewed and voiced concerns addressed. The printed consent form was signed and witnessed. Standard time-out procedure was performed. Patient was placed in the prone position on the fluoroscopy table and automated blood pressure cuff and pulse oximeter applied. The skin entry points for approaching the anatomic target points of the segmental medial branches of right L3-L5 were identified with fluoroscopy and marked. Following thorough Chlorhexadine preparation of the skin and draping and 1% lidocaine infiltration of the skin entry points and subcutaneous tissues, a single 18 guage curved 10 cm 10mm active tip radiofrequency cannula was placed under fluoroscopic guidance along or across the anatomic course of each respective segmental medial branch. Each placement was stimulated at 50Hz and les then 0.5V for medial branch sensory localization and the at 2Hz and up to 3 times the sensory voltage without any evidence of distal myotomal stimulation. 1cc of 1% ;idocaine was injected at each site. At each placement a continuous mode radiofrequency treatment was done at 80 degrees C for 90secs. 1/3 cc of depomedrol (80 mg/cc) and 1 cc of 0.5% Bupivacaine was injected to each segmental nerve. The needles were then removed without difficulty. This radiofrequency treatment should result in the denervation of the right L4- L5 and L5-S1 FACET JOINTS. A total of 2 facets were expected to be denervated from today's treatment. Vital signs were stable throughout the procedure and were as recorded in the docflowsheet by the nursing staff. If given, dosages of intravenous drugs for anxiolysis and analgesia were documented in the Medication Administration Record (MAR). Follow up plans and appointments were discussed. Post procedure instruction was given as documented in the nursing documentation and having met discharge criteria, YUE was discharged from the [facility]. COMMENTS: Post-procedure pain level was 0-1/10. This procedure can be repeated if it gives him at least 6 months of pain relief to the right side of the low back. CC: Shai Mcdaniel MD
[2018-07-08] MEDS: methylPREDNISolone ACETATE 40 MG/ML VIAL IJ (09:18)
[2018-07-08] MEDS: Lidocaine 2% Pres-Free 5 ML VIAL IJ (09:18)
[2018-07-08] MEDS: Bupivacaine 0.5% Pres-Free 30 ML VIAL IJ (09:18)
== END 2018-07-08 07:49 ==
PROVIDERS: PCP Family Medicine; Visit Provider Preventive Medicine Occupational Medicine
DX: M47.817 Spondylosis without myelopathy or radiculopathy, lumbosacral region (principal)
CPT/HCPCS: 64635; 64636; 72100; J1030; J2250; J3010

== ENCOUNTER 2018-07-21 07:23 | Emergency (ER) | payer OTHER, SELFPAY ==
[2018-07-21] VITALS (46 sets, daily range): BP systolic 123–156; BP diastolic 70–92; PULSE 89–118; RESP 2–31; TEMP 37.1–38.2; O2SAT 89–99
--- NOTE | 2018-07-21 07:56 | DI.RAD_ITS ---
SYMPTOM/DIAGNOSIS: COUGH PA AND LATERAL CHEST: Comparison is made with 11/25/17. The heart is mildly enlarged and the aorta tortuous, unchanged. The lungs are suboptimally inflated on both views. No infiltrate, effusion or pulmonary edema is seen. IMPRESSION: No acute abnormality.
--- NOTE | 2018-07-21 07:59 | W.ED.GENAD ---
Discharge Plan Disposition Patient Disposition: HOME Condition: Improving Discharge Details Chief Complaint: RespSymp Clinical Impression: Bronchitis Primary Care Provider: Shai Mcdaniel ED Provider: David Kim Home Meds and New Rx's Prescriptions: New cefdinir 300 mg capsule 300 mg PO Q12H 10 Days Qty: 20 RF: 0 prednisone 20 mg tablet 40 mg PO DAILY 5 Days Qty: 10 RF: 0 albuterol sulfate 1.25 mg/3 mL solution for nebulization 1.25 mg IH QID PRN (Reason: shortness of breath or wheezing) Qty: 15 RF: 0 Continued multivitamin [Once Daily] 1 EACH tablet 1 ea PO DAILY RF: 0 syringe (disposable) 1 EACH syringe 1 ea Miscellaneous q 2 weeks Qty: 25 RF: 0 BD Regular [place]vel [place] 1 EACH needle 1 ea Miscellaneous q 2 weeks Qty: 25 RF: 0 gemfibrozil [Lopid] 600 MG tablet 600 mg PO BID Qty: 180 RF: 4 pantoprazole [Protonix] 40 MG tablet,delayed release (DR/EC) 40 mg PO DAILY Qty: 90 RF: 4 amlodipine-benazepril [Lotrel] 1 EACH capsule 1 tab-cap PO DAILY Qty: 90 RF: 4 Metoprolol Succinate 25 MG TAB.ER.24H 25 mg PO DAILY Qty: 90 RF: 3 BD Regular [place] 1 EACH needle 1 ea Miscellaneous q 2 weeks Qty: 12 RF: 2 celecoxib [Celebrex] 200 mg capsule 200 mg PO BID Qty: 60 RF: 1 amoxicillin 500 mg capsule 2,000 mg PO ONCE RF: 0 acetaminophen 500 mg capsule 1,000 mg PO Q8H PRN (Reason: pain) Qty: 90 RF: 0 aspirin [Aspir-81] 81 mg Tablet,Delayed Release (Dr/Ec) 81 mg PO DAILY RF: 0 Discharge Instructions Instructions: Acute Bronchitis (ED) Additional Instructions: We will ask our care management team to arrange a follow-up appointment for you in clinic. Please take antibiotics as prescribed. May use nebulizer at home during times of illness as needed for coughing or wheeze. Please continue use of incentive spirometer as directed by respiratory therapy. Take prednisone as prescribed. Continue all of your regular medications. Home to rest today. Small, frequent sips of fluids to maintain hydration. May use Tylenol and/or ibuprofen as needed for aches, pains, fever Return to the emergency department for any acute concerns Medical Decision Making 63-year-old male presents from home with his complaining of not feeling well for some time approximately 1 week and now with 3 days of fever, cough, chills, posttussive emesis and production of yellow sputum. He arrives febrile and mildly ill in appearance. Difference diagnosis includes influenza, pneumonia. Patient had IV access established, given fluid bolus, ketorolac, inhaled updraft to assist in suppressing his cough, and chest x-ray obtained. No clear infiltrate on x-ray. Influenza is negative. Patient does have elevated white blood cell count is dehydrated with mild anion gap acidosis. Patient given total of 3 L parenteral fluids, 125 mg of Solu-Medrol, ketorolac, acetaminophen, and 1 g of Rocephin. Evaluated in the emergency department by respiratory therapy given improvement of his diminished basilar breath sounds with beta agonist. He will be discharged home with incentive spirometer as well as nebulizer to be used as needed during times of illness. I feel this home use of albuterol will help his persistently thick and tenacious pulmonary secretions. I will place him on a course of oral cephalosporin. Stable and improving. Ambulated without difficulty with 92-93% room air sat appropriate for a trial of outpatient management with burst of steroids, oral antibiotics, nebulizers as needed. We will ask care management to arrange a follow-up appointment for him in clinic for recheck. Lab Data Lab results reviewed: Yes I reviewed the patient's lab results. Laboratory Results - last 24 hr 07/21/18 07/21/18 08:20 08:20 WBC 14.67 H RBC 5.62 Hgb 15.5 Hct 46.1 MCV 82.0 MCH 27.6 MCHC 33.6 RDW 14.8 H Plt Count 234 MPV 9.7 Immature Gran % 0.2 Neutrophils % 83.4 Lymphocytes % 6.1 Monocytes % 10.1 Eosinophils % 0.0 Basophils % 0.2 Absolute Neutrophils 12.23 H Absolute Lymphocytes 0.89 L Absolute Monocytes 1.48 H Absolute Eosinophils 0.00 Absolute Basophils 0.03 Sodium 140 Potassium 4.2 Chloride 101 Carbon Dioxide 23.4 Anion Gap 15.6 H BUN 20 H Creatinine 1.03 Estimated GFR/1.73 m2 >= 60.00 Glucose 142 H Calcium 8.7 Total Bilirubin 0.6 AST 47 H ALT 78 Alkaline Phosphatase 150 H Total Protein 8.4 H Albumin 4.2 HPI General Mode of arrival: ambulatory. Date/Time Provider Initiated Documentation: 07/21/18 07:28. Limitations to Documentation: no limitations. Information obtained by: patient and family. History of Present Illness 63 year old M presents to the emergency department with the chief complaint of Fever, cough, post tussive emesis times 3 days, described as moderate, Quality is described as aching, and is localized to the chest. Patient reports no radiation. Patient started experiencing this day(s) and it has been constant. No relieving factors improve symptom(s), No exacerbating factors reported . Patient notes cough, fever/chills, loss of appetite and nausea/vomiting. Patient did receive the following treatments prior to arrival, other (Tylenol) Related Data Home Medications Medication Instructions Recorded Confirmed multivitamin [Once Daily] 1 ea PO DAILY 10/21/12 07/21/18 BD Regular [place]vel [place] #25 ndl 05/15/17 07/08/18 syringe (disposable) #25 syringe 05/15/17 07/08/18 amlodipine-benazepril [Lotrel] 1 tab-cap PO DAILY #90 tab-cap 10/09/17 07/21/18 gemfibrozil [Lopid] 600 mg PO BID #180 tab-cap 10/09/17 07/21/18 pantoprazole [Protonix] 40 mg PO DAILY #90 tab-cap 10/09/17 07/21/18 BD Regular [place] #12 ndl 12/13/17 07/08/18 acetaminophen 1,000 mg PO Q8H PRN #90 cap 03/18/18 07/21/18 celecoxib 200 mg capsule 200 mg PO BID #60 cap 05/16/18 07/21/18 amoxicillin 500 mg capsule 2,000 mg PO ONCE cap 05/21/18 07/21/18 aspirin [Aspir-81] 81 mg PO DAILY 06/11/18 07/21/18 albuterol sulfate 1.25 mg IH QID PRN #15 ml 07/21/18 cefdinir 300 mg PO Q12H 10 Days #20 cap 07/21/18 prednisone 40 mg PO DAILY 5 Days #10 tab 02/25/19 Previous Rx's Medication Instructions Recorded BD Regular [place] #25 ndl 05/15/17 syringe (disposable) #25 syringe 05/15/17 amlodipine-benazepril [Lotrel] 1 tab-cap PO DAILY #90 tab-cap 10/09/17 gemfibrozil [Lopid] 600 mg PO BID #180 tab-cap 10/09/17 pantoprazole [Protonix] 40 mg PO DAILY #90 tab-cap 10/09/17 BD Regular [place] #12 ndl 12/13/17 acetaminophen 1,000 mg PO Q8H PRN #90 cap 03/18/18 celecoxib 200 mg capsule 200 mg PO BID #60 cap 05/16/18 albuterol sulfate 1.25 mg IH QID PRN #15 ml 07/21/18 cefdinir 300 mg PO Q12H 10 Days #20 cap 07/21/18 prednisone 40 mg PO DAILY 5 Days #10 tab 07/21/18 Allergies Allergy/AdvReac Type Severity Reaction Status Date / Time No Known Allergies Allergy Unverified 07/21/18 07:39 General Stated Complaint: RespSymp TERA: 3 Review of Systems Review of Systems 8 systems reviewed and otherwise neg PFSH Medical History Osteoarthritis of knees, bilateral (Acute) Chronic low back pain Hearing loss Hypercholesterolemia Hypertension Surgical History History of arthroscopy of both knees (Acute) S/P knee replacement (Acute ~03/14/18) BACK SURGERY (~04/2013) Colonoscopy - MAC Excision, Olecranon Bursa (~08/2009) NEGATIVE STRESS TEST Family History Mother Diabetes Essential hypertension Hyperlipidemia Father Essential hypertension Depression Heart disease Substance abuse Maternal Grandmother Stroke Sister Essential hypertension Sister No problems noted. Sister Multiple sclerosis Brother Depression Substance abuse Brother No problems noted. Son No problems noted. Daughter No problems noted. Social History highest education level completed: Associate degree: academic program current occupational status: unemployed pets and animals: No frequency: decline to answer duration: decline to answer Smoking and Tabacco status: Never alcohol intake: former substance use type: former substance user and marijuana cain/anabaptist: [employer] special cain needs: No Exam Narrative Exam Narrative: GEN: awake, alert, oriented 3. Pleasant, well groomed, interactive. HEAD: Normocephalic, atraumatic ENT: Mucous membranes dry, oropharynx unremarkable, External ear exam unremarkable EYES: PERRL, EOMI NECK: Full ROM, no SERAFIN, no menigismus CHEST/RESP: Nontender, clear to auscultation bilateral, no wheeze/rhonchi/rales CARDIOVASCULAR: Tachycardic regular, no murmur, rub sonu. 2+ Rad pulse bilateral ABDOMEN: Soft, nontender, no mass. +Bowel sounds EXT: Full ROM, no edema, no rash Neuro: Grossly normal neurologic exam, conversant, interactive. Psych: Speech fluent, thoughts congruent, affect normal Course Vital Signs Temperature 38.2 C H 07/21/18 07:28 Pulse 107 H 07/21/18 07:28 Blood Pressure 155/92 H 07/21/18 07:28 Pulse Oximetry 94 L 07/21/18 07:28 Temperature 38.2 C H 07/21/18 07:28 Temperature Source Temporal Artery Scan 07/21/18 07:28 Pulse 107 H 07/21/18 07:28 Respiratory Effort Incrsd Work of Breathing 07/21/18 07:36 Respiratory Depth Shallow 07/21/18 07:36 Blood Pressure 155/92 H 07/21/18 07:28 Blood Pressure Position Sitting 07/21/18 07:28 Pulse Oximetry 94 L 07/21/18 07:28 Oxygen Delivery Method Room Air 07/21/18 07:28 Oxygen Flow Rate 0 07/21/18 07:28 Pain Level 0 07/21/18 07:28 Lab/Test Results Lab/Test Results: 07/21/18 07:33 Nasopharynx Influenza Types A,B Antigen - Pending
[2018-07-21] MEDS: Albuterol/Ipratropium 3 ML UPD VIAL UPD ×3 (08:26→11:20)
[2018-07-21] MEDS: Normal Saline 1,000 ML 1000 ML IV ×3 (08:26→10:21)
[2018-07-21 08:29] LABS: Abs Immature Grans 0.03 k/cumm (0.0-0.09); Absolute Basophil Count 0.03 k/cumm (0.0-0.2); Absolute Monocyte Count 1.48 k/cumm (0.11-0.7); Absolute Neutrophil Count 12.23 k/cumm (1.2-6.7); Basophils % 0.2; HCT 46.1 % (40.0-50.0); HGB 15.5 g/dL (13.5-17.5); Immature Grans % 0.2; Lymphocytes % 6.1; Mean Corp. HGB Concentration 33.6 g/dL (32.0-36.0); Mean Corpuscular Hemoglobin 27.6 pg (27.0-33.0); Mean Platelet Volume 9.7 fL (8.0-11.0); Monocytes % 10.1; Neutrophils % 83.4; Platelet Count 234 x1000/uL (130-400); RBC 5.62 m/cumm (4.50-6.00); RBC Distribution Width 14.8 % (11.8-14.1); White Blood Cell Count 14.67 k/cumm (4.4-10.8)
[2018-07-21 08:34] LABS: Absolute Lymphocyte Count 0.89 k/cumm (1.2-3.4)
[2018-07-21 08:43] LABS: ALT 78 U/L (12-78); AST 47 U/L (15-37); Albumin 4.2 g/dL (3.4-5.0); Alkaline Phosphatase 150 U/L (46-116); Anion Gap 15.6 mmol/L (3-11); BUN 20 mg/dL (7-18); Bilirubin, Total 0.6 mg/dL (0.2-1.0); CO2 23.4 mmol/L (21.0-32.0); CREATININE 1.03 mg/dL (0.70-1.30); Calcium 8.7 mg/dL (8.5-10.1); Chloride 101 mmol/L (98-107); Glucose 142 mg/dL (70-100); Potassium 4.2 mmol/L (3.5-5.1); Sodium 140 mmol/L (136-145); Total Protein 8.4 g/dL (6.4-8.2)
[2018-07-21] MEDS: methylPREDNISolone SUCC 125 MG VIAL IVP (09:18)
--- NOTE | 2018-07-21 09:20 | NUR.NOTE ---
patient medicated per MD order and 2 lmp nc applied for hypoxia Nursing Note:
[2018-07-21] MEDS: Ketorolac 30 MG/ML VIAL IVP (09:25)
[2018-07-21] MEDS: Acetaminophen 500 MG TAB 1000 MG PO (10:23)
[2018-07-21] MEDS: Metoprolol 25 MG TAB (11:23)
--- NOTE | 2018-07-22 10:05 | PDOC.ERCMPRO ---
Care Management Progress Note 07/22-Dr. Kim requested assistance with a PCP (Jonas) f/u in 5-7 days for pneumonia. Referral faxed to [facility] this .
== END 2018-07-21 12:42 | disposition home or self-care (01) ==
PROVIDERS: Emergency Provider Emergency Medicine; PCP Family Medicine
DX: R50.9 Fever, unspecified (principal); E86.0 Dehydration; J20.9 Acute bronchitis, unspecified; I10 Essential (primary) hypertension
CPT/HCPCS: 36415; 80053; 87449; 94640; 96361; 96365; 96375; 99285; 71046; 85025; 99284; J0696; J1885; J2930; J3490; J7620

== ENCOUNTER 2019-03-16 08:51 | Outpatient (CLI) | payer OTHER, SELFPAY ==
--- NOTE | 2019-03-16 08:00 | DI.RAD_ITS ---
EXAM: XR KNEE LT 2V AP,LAT INDICATION: eval L TKA. COMPARISON: XR knee LT 1V from 04/02/2018 TECHNIQUE: 2D digital imaging was performed. FINDINGS: Patient is status post TKA. The prosthesis in good position, surrounding bone intact. The possibilit y of a joint effusion could not be entirely excluded.
--- NOTE | 2019-03-16 08:00 | DI.RAD_ITS ---
EXAM: XR KNEE RT 2V AP,LAT INDICATION: eval bilateral TKA. COMPARISON: XR KNEE LT 2V AP,LAT from 03/16/2019 TECHNIQUE: 2D digital imaging was performed. FINDINGS: The patient is status post TKA. The prosthesis in excellent position, surrounding bone intact.
== END 2019-03-16 09:11 ==
PROVIDERS: PCP Family Medicine; Visit Provider Student in an Organized Health Care Education/Training Program
DX: Z96.653 Presence of artificial knee joint, bilateral (principal); Z47.1 Aftercare following joint replacement surgery
CPT/HCPCS: 73560

== ENCOUNTER 2019-05-12 10:06 | Outpatient (CLI) | payer OTHER, SELFPAY ==
[2019-05-12 13:04] LABS: Calculated LDL 111 mg/dL; Cholesterol 183 mg/dL (<200); HDL Cholesterol 39 mg/dL (40-60); Triglyceride 166 mg/dL (<150)
== END 2019-05-12 10:26 ==
PROVIDERS: PCP Family Medicine; Visit Provider Family Medicine
DX: Z00.00 Encounter for general adult medical examination without abnormal findings (principal); Z13.220 Encounter for screening for lipoid disorders; Z13.1 Encounter for screening for diabetes mellitus; Z12.5 Encounter for screening for malignant neoplasm of prostate
CPT/HCPCS: 36415; 80061; 84153; 83036

== ENCOUNTER 2020-05-19 01:25 | Outpatient (CLI) | payer OTHER, SELFPAY ==
[2020-05-19 07:41] LABS: Hemoglobin A1C 5.8 % (<5.7)
[2020-05-19 08:52] LABS: ALT 55 U/L (16-63); AST 31 U/L (15-37); Albumin 4.2 g/dL (3.4-5.0); Alkaline Phosphatase 102 U/L (46-116); Anion Gap 9.8 mmol/L (3-11); BUN 18 mg/dL (7-18); Bilirubin, Total 0.6 mg/dL (0.2-1.0); CO2 25.2 mmol/L (21.0-32.0); CREATININE 0.69 mg/dL (0.70-1.30); Calcium 8.9 mg/dL (8.5-10.1); Chloride 103 mmol/L (98-107); Glucose 117 mg/dL (74-106); Potassium 4.4 mmol/L (3.5-5.1); Sodium 138 mmol/L (136-145)
== END 2020-05-19 01:45 ==
PROVIDERS: PCP Family Medicine; Visit Provider Family Medicine
DX: R73.9 Hyperglycemia, unspecified (principal); R74.8 Abnormal levels of other serum enzymes
CPT/HCPCS: 36415; 80053; 83036

== ENCOUNTER 2020-07-22 14:00 | Outpatient (CLI) | payer OTHER, SELFPAY ==
--- NOTE | 2020-07-22 08:15 | DI.RAD_ITS ---
EXAM: XR HAND RT COMPLETE CLINICAL HISTORY: rt thumb pain, M79.644. TECHNIQUE: 2D digital imaging was performed. COMPARISON: No exams were available for comparison FINDINGS: BONES: No acute fracture is present. No bony destructive lesion is seen. JOINTS: No dislocation present. There are degenerative changes at the 1st carpal metacarpal joint, with joint space narrowing and periarticular spurring. The degenerative changes are also noted in th e interphalangeal joints. SOFT TISSUE: Normal. IMPRESSION: Degenerative changes at the 1st carpal metacarpal joint and interphalangeal joints. DATA REPOSITORY: RADIATION DOSE DELIVERED:
== END 2020-07-22 14:20 ==
PROVIDERS: PCP Family Medicine; Visit Provider Family Medicine
DX: M18.11 Unilateral primary osteoarthritis of first carpometacarpal joint, right hand (principal); M19.041 Primary osteoarthritis, right hand
CPT/HCPCS: 73130

== ENCOUNTER 2020-09-26 10:44 | Outpatient (CLI) | payer OTHER, SELFPAY ==
--- NOTE | 2020-09-26 09:15 | DI.RAD_ITS ---
Exam(s) XR SHOULDER RT COMPLETE 2+V EXAM: XR SHOULDER RT COMPLETE 2+V CLINICAL HISTORY: right shoudler pain. TECHNIQUE: 2D digital imaging was performed. COMPARISON: No exams were available for comparison FINDINGS: There are degenerative changes seen at the acromioclavicular joint. There are mild degenerative soto ges seen at the glenohumeral joint. No acute fracture or dislocation is identified. No suspicious l ytic or sclerotic lesions are seen. Calcification is seen adjacent to the greater tuberosity consist ent with calcific tendinitis. The soft tissues are unremarkable. IMPRESSION: Degenerative changes in the right shoulder. DATA REPOSITORY: RADIATION DOSE DELIVERED:
== END 2020-09-26 10:45 | disposition home or self-care (01) ==
LOC: DIORS 10:45
PROVIDERS: PCP Family Medicine; Referring Provider Family Medicine; Visit Provider Physician Assistant
DX: M25.511 Pain in right shoulder (principal); M19.011 Primary osteoarthritis, right shoulder; M75.21 Bicipital tendinitis, right shoulder; M75.81 Other shoulder lesions, right shoulder
CPT/HCPCS: 73030

== ENCOUNTER 2020-09-29 02:26 | Outpatient (CLI) | payer OTHER, SELFPAY ==
--- NOTE | 2020-09-29 06:30 | DI.MRI_ITS ---
Exam(s) MR UPPER JOINT RT WO CLINICAL HISTORY: pain,tendinitis,m75.21,m75.81. TECHNIQUE: Multiplanar multisequence MRI was performed. COMPARISON: None FINDINGS: MR examination of the shoulder was performed according to the usual protocol. There is no significant effusion of the glenohumeral joint. There is trace fluid in the subacromial subdeltoid bursa. Bones and labrum: There are prominent hypertrophic degenerative changes at the acromioclavicular join t with subjacent deformity of the myotendinous junction region of the supraspinatus. There are subch ondral cysts of the greater and lesser tuberosities of humerus. There is question of abnormal signal in superior labrum seen on this noncontrast scan, SL AP tear wen pected, please correlate clinically. Rotator cuff: Supraspinatus, subscapularis, infraspinatus, and teres minor muscles and tendons show show no evidence of a partial-thickness or full-thickness tear. However there is some abnormal signa l in the the distal portions of the supraspinatus infraspinatus and subscapularis consistent with mil d tendinosis. Rotator interval structures are unremarkable with no evidence of a tear. Biceps tendon and anchor: Biceps tendon and anchor show normal signal and no evidence of a tear. Leodan ps tendon is normally positioned in the bicipital groove. IMPRESSION: Degenerative changes particularly involving AC joint with its subjacent deformity of supraspinatus my otendinous junction region. Tendinosis of the rotator cuff tendons without evidence of a focal tear. Labrum not ideally visualized on this noncontrast scan but SL AP tear suspected. DATA REPOSITORY:
== END 2020-09-29 02:46 ==
PROVIDERS: PCP Family Medicine; Visit Provider Student in an Organized Health Care Education/Training Program
DX: M25.511 Pain in right shoulder (principal); M75.81 Other shoulder lesions, right shoulder; M75.21 Bicipital tendinitis, right shoulder; M25.811 Other specified joint disorders, right shoulder
CPT/HCPCS: 73221

== ENCOUNTER 2021-05-17 02:56 | Outpatient (CLI) | payer OTHER, SELFPAY ==
[2021-05-17 10:23] LABS: CREATININE 0.8 mg/dL (0.70-1.30); Calculated LDL 109 mg/dL (<100); Cholesterol 179 mg/dL (<200); HDL Cholesterol 42 mg/dL (40-60); Potassium 4.3 mmol/L (3.5-5.1); Triglyceride 144 mg/dL (<150)
== END 2021-05-17 02:57 | disposition home or self-care (01) ==
LOC: LBO 02:56
PROVIDERS: PCP Family Medicine; Visit Provider Family Medicine
DX: I10 Essential (primary) hypertension (principal); E78.5 Hyperlipidemia, unspecified; R73.9 Hyperglycemia, unspecified; R74.8 Abnormal levels of other serum enzymes
CPT/HCPCS: 36415; 80061; 82565; 83036; 84132

== ENCOUNTER 2021-09-19 09:26 | Outpatient (CLI) | payer OTHER, SELFPAY ==
--- NOTE | 2021-09-19 09:00 | DI.RAD_ITS ---
Exam(s) XR SHOULDER LT COMPLETE 2+V EXAM: XR SHOULDER LT COMPLETE 2+V CLINICAL HISTORY: left shoulder pain. TECHNIQUE: 2D digital imaging was performed of the left shoulder. Three images were obtained. AP a nd axillary views were obtained. COMPARISON: No exams were available for comparison FINDINGS: BONES: No acute fracture is present. No bony destructive lesion is seen. JOINTS: No dislocation present. Mild degenerative changes are seen at both the acromioclavicular and glenohumeral joints. SOFT TISSUE: Normal. IMPRESSION: Degenerative changes of the left shoulder as described. DATA REPOSITORY: RADIATION DOSE DELIVERED:
== END 2021-09-19 09:27 | disposition home or self-care (01) ==
LOC: DIORS 09:27
PROVIDERS: PCP Family Medicine; Referring Provider Family Medicine; Visit Provider Physician Assistant
DX: M25.512 Pain in left shoulder (principal); M19.012 Primary osteoarthritis, left shoulder
CPT/HCPCS: 73030

== ENCOUNTER 2021-09-19 09:29 | Outpatient (CLI) | payer OTHER, SELFPAY | END 2021-09-19 09:30 | disposition home or self-care (01) | LOC: DIORT 09:30 | PROVIDERS: PCP Family Medicine; Visit Provider Student in an Organized Health Care Education/Training Program ==

== ENCOUNTER 2021-09-20 02:58 | Outpatient (CLI) | payer OTHER, SELFPAY ==
--- NOTE | 2021-09-20 06:30 | DI.MRI_ITS ---
Exam(s) MR LUMBAR SPINE WO/W EXAM: MR LUMBAR SPINE WO/W CLINICAL HISTORY: worsening back pain; hx of central spinal stenosis,m47.817 TECHNIQUE: Multiplanar multisequence MRI of the Lumbar Spine was performed. CONTRAST MATERIAL: IV Contrast: 20 mL of Dotarem contrast administered. COMPARISON: CR XR lumbar spine complete from 04/25/2018 MR MR lumbar spine wo from 05/29/2018 CR XR SHOULDER LT COMPLETE 2+V from 09/19/2021 FINDINGS: Vertebral bodies are well maintained in height. There is red marrow reconversion. Conus medullaris appears normal. No abnormal in areas of enhancement. T12-L1: Mild disc bulging. L1-2: Moderate loss of disc height and broad-based disc bulging. No significant central canal stenos is. Bilateral neural foraminal narrowing, right greater than left. L2-3: Severe loss of disc height. The large broad-based osteophytes. Laminectomy defect. Facet deg enerative changes. Bilateral neural foraminal narrowing, severe on the right. L3-4: Severe loss of disc height eccentric toward the right side. Broad-based disc osteophytes. Mil d central canal stenosis. Severe bilateral neural foraminal narrowing, greater on the right side L4-5: Mild loss of disc height, eccentric toward the left. Broad-based disc osteophytes. Facet dege nerative changes and ligamentous hypertrophy causing mild central canal stenosis. Severe severe left neural foraminal narrowing and moderate right neural foraminal narrowing. L5-S1: Marked loss of disc height. Small endplate osteophytes. Facet degenerative changes causing m oderate bilateral neural foraminal narrowing. No significant central canal stenosis. IMPRESSION: Multilevel degenerative disc changes and facet degenerative changes causing severe neural foraminal n arrowing at multiple levels. Mild central canal stenosis at L3-4 and L4-5. No focal disc herniation .. DATA REPOSITORY:
[2021-09-20 08:02] LABS: CREATININE 0.8 mg/dL (0.70-1.30)
[2021-09-20] MEDS: Gadoterate meglumine 20 ML VIAL IVP (08:23)
[2021-09-20] MEDS: Normal Saline Flush 10 ML SYR IVP (08:23)
== END 2021-09-20 03:18 ==
PROVIDERS: PCP Family Medicine; Visit Provider Family Medicine
DX: Z01.812 Encounter for preprocedural laboratory examination; M47.817 Spondylosis without myelopathy or radiculopathy, lumbosacral region; M54.59 Other low back pain; M51.37 Other intervertebral disc degeneration, lumbosacral region; M48.061 Spinal stenosis, lumbar region without neurogenic claudication
CPT/HCPCS: 72158; 82565

== ENCOUNTER → 2021-10-09 02:28 | Outpatient (CLI) | payer OTHER, SELFPAY ==
--- NOTE | 2021-10-09 06:30 | DI.MRI_ITS ---
Exam(s) MR UPPER JOINT LT WO EXAM: MR UPPER JOINT LT WO CLINICAL HISTORY: lt shoulder pain, m25.512. TECHNIQUE: Multiplanar multisequence MRI was performed. COMPARISON: CR XR SHOULDER LT COMPLETE 2+V from 09/19/2021 FINDINGS: The examination is limited due to patient motion artifact. BONES: There is no fracture or contusion pattern. JOINTS: Moderately severe degenerative changes are seen at the acromioclavicular joint. There also d egenerative changes seen in the greater tuberosity with marrow edema and subchondral cysts. The joseph ohumeral joint is normal. There is superior subluxation of the humeral head consistent with the patie nt's rotator cuff tear. TENDONS: Supraspinatus: There is a full-thickness tear of the supraspinatus tendon with retraction of the tend on approximately 2.8 cm. Infraspinatus: There is a partial tear at the insertion site of the infraspinatus tendon. Subscapularis: There is a full-thickness tear through the subscapularis tendon with retraction. Teres Minor: Unremarkable. Biceps and Porter: There are findings suggestive of at least a partial tear of the biceps tendon. MUSCLES: Unremarkable. No significant fatty atrophy. GLENOID LABRUM: Portions of the superior labrum show heterogeneous signal which may represent a parti al tear or degeneration. SOFT TISSUES: There is edema in the soft tissues around the subscapularis tendon and muscle. LIGAMENTS: Unremarkable. OTHER: There is fluid in the subacromial subdeltoid bursa consistent with the rotator cuff tear. IMPRESSION: 1. Full-thickness tear of the supraspinatus tendon with retraction. 2. Full-thickness tear of the subscapularis tendon with some retraction. 3. Findings suggestive of partial tears at the infraspinatus and biceps tendon. 4. Heterogeneous signal seen in the superior labrum suspicious for partial tear and/or degeneration. 5. No evidence of a fracture. 6. Degenerative changes seen at the greater tuberosity and the acromioclavicular joint. DATA REPOSITORY:
== END ==
PROVIDERS: PCP Family Medicine; Visit Provider Student in an Organized Health Care Education/Training Program
DX: M25.512 Pain in left shoulder (principal); M19.012 Primary osteoarthritis, left shoulder; S46.012A Strain of muscle(s) and tendon(s) of the rotator cuff of left shoulder, initial encounter
CPT/HCPCS: 73221

== ENCOUNTER → 2021-11-21 01:24 | Outpatient (CLI) | payer OTHER, SELFPAY ==
--- NOTE | 2021-11-21 06:45 | DI.NM_ITS ---
APPROVED REPORT Exam: Pharmacologic Patient Location: Out-Patient Room/Bed: Stress Nurse: Ceci Coelho RN Ordering Provider:LONDON GARDNER, Contact Number: [phone] BMI: 36.60 Baseline Rhythm: Sinus Rhythm, APC's Comment: Frequent PAC's Indications: Chest pain Medical History Medical History: Depression, ETOH abuse, HTN, HLD, ED Cardiac Medications: Pantoprazole, Metoprolol Succinate, Amlodipine, Benazepril, Asa Allergies: None Cardiac Risk Factors: Family hx, HTN, HLD Previous Cardiac Procedures: None Pretest Chest Pain Characteristics: None Exercise History: None Physical Disabilities: Bilateral artificial knees, spinal stenosis Lung Sounds: LCTA Heart Sounds: S1/S2, regular Stress Test Details Test: Exercise stress converted to pharmacologic stress due to failure to obtain a diagnostic stress test. Reason for pharmacologic stress test: changed from exercise stress test due to inability to reach t arget heart rate. Nuclear Acquisition: Rest Tc-99m/Stress Tc-99m 1 day Rest Isotope: Tc-99m Sestamibi. Dose: 11.2 Date: 11/21/2021 Injection Time: 0855 Stress Isotope: Tc-99m Sestamibi. Dose: 37.5 Date: 11/21/2021 Injection Time: 1027 HR Resting HR Supine: 67 bpm Max Heart Rate (APMHR): 155.307160 bpm Resting HR Standin bpm Target HR (85% APMHR): 131.903664 bpm Max HR Achieved: 121 bpm % of APMHR: 78.06 Recovery HR: 85 bpm HR response to stress: Blunted HR response to stress Comment: Pt was unable to hold beta blockers pre test BP Resting BP Supine: 116/74 mmHg Resting BP Standin/70 mmHg Max BP: 164/70 mmHg Recovery BP: 146/74 mmHg BP response to stress: Normal blood pressure response to stress. ECG Resting ECG: Sinus Rhythm Ectopy: Frequent PAC's Comment: PAC bigeminal pattern, baseline minimal ST elevations noted, lead III t wave inverted when s tanding Stress ECG: Sinus Tachycardia ST Change: No significant ST segment changes noted Arrhythmia: None Comment: T wave inverted in lead III at baseline, flipped w/ exercise Recovery ECG: Clear, Sinus Rhythm Recovery ST Change: No significant ST segment changes noted Clinical Reason for Termination: Fatigue Stress Symptoms: Dyspnea, lightheaded Exercise duration: 7 min19 sec Highest Stage Reached: Stage 3: 3.4 mph at 14% grade. Exercise capacity: 9.19 METs Rate Pressure Product: Stress ECG Conclusion 1. Resting electrocardiogram was within normal limits 2. Patient underwent exercise testing using a combination of treadmill and pharmacologic stress with regadenoson 3. Normal blood pressure response to exercise. Blunted heart rate response, the patient achieved 78% of predicted heart rate for age 4. The electrocardiographic portion of the test was nondiagnostic due to inadequate heart rate 5. Atrial premature beats were noted 6. See MPI report Stress Test Summary STAGE Time (mins) Speed (mph) Grade (%) HR BP SYMPTOMS METS Supine 67 116/74 Standing 83 110/70 1 3 1.7 10 100 112/74 4.6 2 6 2.5 12 113 112/74 7 1 min post Lexiscan injection 110 116/68 3 min post Lexiscan injection 95 164/70 6 min post Lexiscan injection 86 146/74 MPI Conclusion Normal myocardial perfusion without evidence of ischemia or prior infarction EF is 57%. Wall motion is normal Radiologist Interpretation Radiologist Interpretation by: Addy Flores MD Interpretation Date/Time: 11/21/2021 17:04:12
[2021-11-21] MEDS: Regadenoson 0.4 MG/5 ML SYR IVP (11:47)
== END ==
PROVIDERS: PCP Family Medicine; Visit Provider Family Medicine
DX: R07.9 Chest pain, unspecified (principal)
CPT/HCPCS: 78452; 93017; J2785

== ENCOUNTER → 2021-12-11 00:07 | Outpatient (CLI) | payer OTHER, SELFPAY ==
--- NOTE | 2021-12-11 07:00 | DI.MRI_ITS ---
Exam(s) MR UPPER JOINT RT WO EXAM: MR UPPER JOINT RT WO CLINICAL HISTORY: persistent pain, weakness, rt rotator cuff tear,m75.101. TECHNIQUE: Multiplanar multisequence MRI was performed. COMPARISON: Plain films 26 Sep 2020 FINDINGS: Bones: There is no fracture or contusion pattern. The acromioclavicular joint shows prominent spurring. Thi s causes impingement on the supraspinatus muscle tendon junction. Small cystic areas in superior hum eral head, degenerative. Glenohumeral joint: Small amount of fluid. Rotator Cuff: The supraspinatus tendon shows mild intermediate signal and thickening.. The infraspinatus is unrema rkable. The subscapularis and teres minor are normal. Labrum and biceps anchor: The biceps tendon is located. The anchor is well maintained. The labrum shows degenerative changes.. IMPRESSION: AC joint degenerative changes. Supraspinatus tendinosis. DATA REPOSITORY:
== END ==
PROVIDERS: PCP Family Medicine; Visit Provider Student in an Organized Health Care Education/Training Program
DX: M75.101 Unspecified rotator cuff tear or rupture of right shoulder, not specified as traumatic (principal); R53.1 Weakness; M67.813 Other specified disorders of tendon, right shoulder
CPT/HCPCS: 73221

== ENCOUNTER 2022-02-06 03:20 | Outpatient (CLI) | payer OTHER, SELFPAY ==
[2022-02-06 12:17] LABS: Source Nasal/Nares
[2022-02-06 15:25] LABS: COVID-19 PCR Negative (Negative)
== END 2022-02-06 03:21 | disposition home or self-care (01) ==
LOC: LBO 03:20
PROVIDERS: PCP Family Medicine; Visit Provider Student in an Organized Health Care Education/Training Program
DX: Z20.822 Contact with and (suspected) exposure to COVID-19 (principal)
CPT/HCPCS: 87635

== ENCOUNTER 2022-02-08 09:23 | Day surgery (SDC) | payer OTHER, SELFPAY ==
[2022-02-08] VITALS (13 sets, daily range): BP systolic 95–150; BP diastolic 51–114; PULSE 53–77; RESP 15–20; TEMP 36.4–36.8; O2SAT 92–97; BMI 34.9
--- NOTE | 2022-02-08 08:47 | W.ANESPRE ---
General Info Date of Service Date Performed: 02/08/22 Height: 5 ft 7 in Weight: 101 kg Body Mass Index (BMI): 34.9 Surgical Procedure: Operation Date: 02/08/22 11:10 Proposed Procedure Side Surgeon p Shoulder Rotator Cuff Arthroscopic w/Extensive Debridement, Biceps Tenodesis, Subacromial Decompression, Possible Allograft Superior Capsular Reconstruction Left Car Wheeler MD Meds Allergies and Home Medications Allergies Allergy/AdvReac Type Severity Reaction Status Date / Time No Known Allergies Allergy Verified 02/08/22 09:55 Home Medication Medication Instructions Recorded multivitamin (Once Daily tablet) 1 ea PO DAILY 10/21/12 acetaminophen 500 mg capsule 1,000 mg PO Q8H PRN pain #90 caps 03/18/18 trazodone 100 mg tablet 100 mg PO QHS #90 tabs 03/03/21 tamsulosin 0.4 mg capsule 0.8 mg PO DAILY #180 caps 04/26/21 amlodipine 10 mg-benazepril 40 mg 1 cap PO DAILY #90 tab-caps 10/02/21 capsule (Lotrel) pantoprazole 40 mg tablet,delayed 40 mg PO DAILY #90 tab-caps 11/01/21 release (Protonix) metoprolol succinate 50 mg 50 mg PO DAILY #90 tabs 11/07/21 tablet,extended release 24 hr gemfibrozil 600 mg tablet (Lopid) 600 mg PO DAILY #90 tab-caps 12/12/21 aspirin 81 mg tablet,delayed 81 mg PO DAILY Prevent blood clot 02/08/22 release 14 days #14 tabs naproxen 250 mg tablet 250 - 500 mg PO BID PRN #40 tabs 02/08/22 oxycodone 5 mg tablet 5 - 10 mg PO Q4H PRN moderate to 02/08/22 severe pain #18 tabs Current Visit Medications: Current Medications Generic Name Dose Route Start Last Admin Trade Name Freq PRN Reason Stop Dose Admin Ringer's Solution 1,000 mls @ 30 mls/hr 02/08/22 06:00 IV 03/09/22 23:59 INFUSION MARIANA Cefazolin Sodium 2,000 mg/ 100 mls @ 200 mls/hr 02/08/22 06:00 Sodium Chloride IVPB 02/08/22 16:00 PREOP MARIANA IV Miscellaneous Supplies 1 each 09/15/22 06:00 Iv Access IV 03/09/22 23:59 DIRECTED MARIANA Oxycodone HCl 0 mg 02/08/22 07:23 Oxycodone 5 Mg Tab PO Q3H PRN PRN Pain Sodium Chloride 0 ml 02/08/22 06:00 Normal Saline Flush 10 Ml Syr IV 03/09/22 23:59 PRN PRN Sodium Chloride 0 ml 02/08/22 06:00 Normal Saline 10 Ml Vial IJ 03/09/22 23:59 DIRECTED PRN Sterile Water 0 ml 02/08/22 06:00 Water,Injection,Sterile 10 Ml Vial IJ 03/09/22 23:59 DIRECTED PRN PFSH Active Problems Active Problems: Problem Status Onset Code 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 Hypertension I10 Dyslipidemia E78.5 GERD (gastroesophageal reflux disease) K21.9 Hypercholesterolemia 0408 E78.00 Osteoarthritis of both knees M17.0 History of total bilateral knee replacement (TKR) Z96.653 Lumbosacral spondylosis without myelopathy M47.817 History of spinal surgery Z98.890 History of bursectomy Z98.890 History of arthroscopy of knee Z98.890 Alcohol abuse F10.10 Elevated liver enzymes R74.8 BPH w urinary obs/LUTS N40.1, N13.8 Pain of right thumb M79.644 Elbow pain, right M25.521 Right shoulder pain M25.511 Arthritis of carpometacarpal joint M19.049 Right rotator cuff tendinitis M75.81 Tendinitis of long head of biceps brachii of right shoulder M75.21 Depression F32.9 Bursitis of right shoulder M75.51 Salivary gland stone K11.5 Back pain M54.9 Bursitis of left shoulder M75.52 Biceps tendinitis of left shoulder M75.22 Arthritis of left acromioclavicular joint M19.012 Chest pain R07.9 Traumatic tear of left rotator cuff S46.012A Rotator cuff tear, right M75.101 Medical History Medical History Hearing loss Hypercholesterolemia Hypertension Osteoarthritis of knees, bilateral reassure Surgical History Surgical History BACK SURGERY (~04/2013) Colonoscopy - MAC 05/14/14 Excision, Olecranon Bursa (~08/2009) History of arthroscopy of both knees NEGATIVE STRESS TEST 04/03/17 11/21/21 S/P knee replacement (~03/14/18) DR. BRAGA; B/L Tobacco Smoking/Tobacco Use Status: Never Passive smoking exposure: Yes Second hand exposure: Yes Alcohol Alcohol Intake: current Alcohol intake frequency: a few times a week Alcohol type: beer Substance Use Substance use: Never Substance use type: does not use Vital Signs and Lab Results Lab Results Blood Type / Crossmatch: No Data to Display Complete Blood Count: No Data to Display Complete Metabolic Panel: No Data to Display Liver Function Panel: No Data to Display Coagulation Panel: No Data to Display Cardiac Panel: No Data to Display Arterial Blood Gas: No Data to Display Venous Blood Gas: No Data to Display Pancreas Panel: No Data to Display Thyroid Panel: No Data to Display Infectious Disease: Coronavirus (COVID-19)(PCR) Negative (Negative) 02/06/22 08:32 Coronavirus 2019 Source Nasal/Nares 02/06/22 08:32 Blood Cultures: No Data to Display Toxicology Panel: No Data to Display Imaging and Studies Imaging and Studies Study information below may be from another EMR and interpreted by another provider. Please see original notes in EMR for more complete details. Stress Test Summary: 10/2021: 9.19 METS, 78% max HR, nondiagnostic EKG portion, MPI with normal perfusion and no evidence of ischemia. LVEF 57%. Echocardiogram Summary: 2018: LVEF 65-70%, ascending aorta 4.6 cm. Carotid Artery Summary:: 2018: no sig internal carotid stenosis. Anesthesia Assessment and Plan Anesthesia History Personal History: No History of Anesthesia Complications Family History: No Family History of Anesthesia Complications Exercise Tolerance Exercise Tolerance: Metabolic Equivalents>4 Pertinent Negatives Pertinent Negatives: No Symptoms of GERD Cardiac & Pulmonary Exam Cardiac Exam: Normal S1/S2 Heart Sounds Pulmonary Exam: Clear Bilateral Breath Sounds Implantable Cardiac Device Does patient have a Pacemaker or an ICD?: No Airway Exam Known Difficult Airway: No Mallampati Class: 2 Mouth Opening: Normal (> 3cm) Thyromental Distance: Greater than 3 cm Neck Range of Motion: Full ROM Neck Circumference: Normal Teeth Condition: Normal Dentition ASA Classification ASA Score: ASA 2 Emergency Case?: No NPO Status NPO Status: NPO Clears >2 hours, Solids >8 hours Anesthesia Plan Resuscitation Status: Full Code Anesthesia Technique: General Anesthesia Airway Planned: Endotracheal Tube Pain Management: Surgeon and patient request nerve block Monitors Used: Standard Monitors Preoperative Comments:: 66 yo male for shoulder scope. Sig PMHx: HTN, GERD, chronic LBP (surgury 2012), EtOH abuse (currently states few times/week), depression, Nerve Block Single Injection Procedure Date and Time Date Performed: 02/08/22 Procedure Start: 11:45 Location Where Procedure Performed Procedure Location: Day Surgery Unit Reason Performed: Postoperative Analgesia Requesting Provider: Car Wheeler Timeout Performed Timeout Performed: Yes Monitoring Used ECG, Blood Pressure, SpO2 and See EMR for corresponding vital signs Sterility Sterility: Hand Hygiene, Surgical Cap, Surgical Mask, Sterile Gloves, Eye Protection and Chlorhexidine Sedation Given During Procedure Sedation Given (Indicate Dose Given): Versed IV Dose:: 2mg Patient Mental Status Patient Mental Status: Awake Nerve Block 1st Nerve Block: Laterality: Left Block Type: Interscalene Needle / Catheter Used: 80mm SonoPlex II Local Anesthetic Bolus (Indicate Dose Given): Lidocaine used for local infiltration of skin and Bupivacaine 0.5% Dose:: 14 mL Additives (Indicate Dose Given): Precedex Dose:: 80mcg Ultrasound: Sterile probe cover and gel used Ultrasound Image Saved?: Yes Nerve Stimulator: Primary Nerve Stimulator Technique, Supplement to Ultrasound use and No twitch or parasthesia noted < 0.5 mA Paresthesia: None Procedure Tolerated: No Complications Procedure Outcome: Successful Performed By: Jeremiah Pederson
[2022-02-08] MEDS: Lactated Ringers 1,000 ML 30 ML IV (10:29)
--- NOTE | 2022-02-08 12:00 | ROE_ITS ---
Operative Note Operative Note DATE OF PROCEDURE: 02/08/22 PRE-OP DIAGNOSIS: Left: 1. Rotator cuff tear 2. Possible biceps rupture 3. Bursitis POST-OP DIAGNOSIS: same PROCEDURE: Left: 1. Rotator cuff repair, CPT# 44513. This involved partial repair of the supraspinatus using sutures and anchor to reattach the rotator cuff to the greater tuberosity 2. Extensive debridement, CPT# 87108. This involved using arthroscopic hand instruments, power instruments, and radiofrequency instruments to debride areas of labral tearing, SLAP tear, synovitis, and chondromalacia and chronic bony changes about the lesser tuberosity, greater tuberosity, biceps groove working within the glenohumeral joint anteriorly, superiorly and posteriorly. 3. Subacromial decompression, CPT# 87121. This involved using arthroscopic power instruments and a radiofrequency wand to complete a bursectomy The horticultural nursery assistant was medically required in order to help assist in techniques above, which require positioning the arm, holding the arthroscope, and manipulating multiple instruments and sutures at the same time. This cannot be done without the help of an experienced horticultural nursery assistant. SURGEON: Car Wheeler KEY ACCOUNT COORDINATOR: Candi Toney ANESTHESIA TYPE: General LMA/ETT and Primary Nerve Block Refer to Anesthesia Record ESTIMATED BLOOD LOSS: 10 PATHOLOGY: none sent COMPLICATIONS: None Patient was transported to: PACU Patient's condition: stable Implants: Arthrex: 5.5mm SwiveLocks x 1 Indications: The patient was diagnosed with the above conditions and appropriately indicated for surgical intervention. Please see complete medical record for details. Findings: Exam under anesthesia: Super?physiologic external rotation, full forward elevation and internal rotation. No instability Glenohumeral joint: Profoundly deficient anterior subscapularis, proximal biceps rupture, and chronic fibrinous changes about the entire lesser tuberosity, bicipital groove, and majority of the greater tuberosity. No appreciable subscapularis tendon. No [facility]. Degenerative anterior and posterior labral tearing. Degenerative SLAP tearing with minimal biceps tendon remnant. Subacromial space: Significant peripheral bursitis. Profoundly retracted scarred supraspinatus. Large infraspinatus partial tearing and retraction of the greater tuberosity. Significant greater tuberosity remnant tendon and chronic bony fibrinous changes and scar tissue about the majority the greater tuberosity. Procedure Description: In the operating room, general anesthesia was induced. Bilateral shoulders were examined. The patient was positioned in the beachchair position. All bony prominences were well-padded. Preoperative antibiotics were administered. The shoulder was prepped and draped in the usual sterile fashion. The correct patient, procedure, and side of the procedure were all verified prior to incision. Starting through the posterior portal a standard complete diagnostic arthroscopy was performed of the glenohumeral joint including inspection of the long head of the biceps, anterior and superior labrum, subscapularis tendon, supraspinatus and infraspinatus tendons, and axillary recess. The glenoid and humeral head cartilage as well as the posterior labrum were inspected from an superior anterior lateral viewing portal. Significant findings and interventions noted above. Starting through the posterior portal, the arthroscope was directed into the subacromial space. A lateral 50 yard line lateral portal was created. A combination of power instruments and a radiofrequency ablator were used to debride bursitis anteriorly, posteriorly, and laterally. The coracoacromial ligament was preserved. The bursectomy was completed viewing laterally and working from posteriorly and the rotator cuff remnant was thoroughly inspected with findings noted above. Unfortunately, there was absolutely no subscapularis to even free up for potential repair. The lesser tuberosity and anterior joint demonstrated significantly chronic deficient rotator cuff changes. There was no biceps tendon available for transposition anteriorly or superiorly or tenodesis. The supraspinatus was significantly retracted to the level of the superior labrum, scarred, and degenerated into multiple poor quality layers. Significant time and effort was spent freeing up adhesions, releasing the rotator cuff tissue about the rotator interval, and attempting to mobilize the cuff from posterior to anterior while achieving some reasonable medial to lateral tissue excursion for fixation without undue tension. The rotator cuff footprint was medialized about 5 mm to optimize potential for repair. The remainder of the greater tuberosity was debrided of chronic bony changes and remnant tissue except for far posterior, which had some remnant infraspinatus and teres intact. The greater tuberosity was smoothed to prevent future impingement as part of a tuberoplasty. The cuff grasper was used and multiple liberator's and elevators to release the layers of the rotator cuff, debride nonstructural tissue, and achieve some partial repair. The self retrieving suture passer was used to pass a FiberTape inverted horizontal mattress stitch in the mid substance of the tear, which was challenging given the thickened retracted abnormal tendon. The BirdBeak was used to pass a FiberLink in cinch mode at the posterior junction of this aspect of the tear and the infraspinatus. Arm position was optimized and the punch used to localize placement of a suture anchor in the central aspect of the greater tuberosity. All repair sutures were loaded on a single 5.5 mm SwiveLock anchor eyelet and deployed without undue tension. Suture anchor and excellent fixation sutures had secure tendon hold. There was no motion of the repair during range of motion or probing. When viewing from lateral there was significantly greater tissue coverage from posterior across the majority of the superior greater tuberosity and then completely absent about the rotator interval and anterior subscapularis defect. The tendon margin was repaired over the bone posteriorly, but was resting on the medial last articular margin more centrally and medially indicating tenuousness of the repair. The shoulder was drained of arthroscopic fluid. All portal sites were copiously irrigated. These incisions were closed using 3-0 Monocryl in a buried fashion and then covered with Mastisol, Steri-Strips, Xeroform, dry gauze, and ABDs. The dressings were covered and secured with Medipore tape. The operative extremity was placed into a sling for immobilization. The patient awoke from anesthesia without complication and was transferred to the recovery room in a stable condition.
[2022-02-08] MEDS: ceFAZolin 2,000 MG in Normal Saline 100 ML 200 MG IVPB (12:35)
[2022-02-08] MEDS: EPINEPHrine 30 MG/30 ML VIAL (13:01)
--- NOTE | 2022-02-08 13:55 | W.ANESNERVE ---
Nerve Block Single Injection Procedure Date and Time Date Performed: 02/08/22 Procedure Start: 11:45 Location Where Procedure Performed Procedure Location: Day Surgery Unit Reason Performed: Postoperative Analgesia Requesting Provider: Car Wheeler Timeout Performed Timeout Performed: Yes Monitoring Used Blood Pressure, SpO2 and See EMR for corresponding vital signs Sterility Sterility: Hand Hygiene, Surgical Cap, Surgical Mask, Sterile Gloves, Eye Protection and Chlorhexidine Sedation Given During Procedure Sedation Given (Indicate Dose Given): Versed IV Dose:: 2mg Patient Mental Status Patient Mental Status: Awake
--- NOTE | 2022-02-08 14:31 | W.PM.DSUDISC ---
Discharge Plan Disposition Patient Disposition: HOME Condition: Stable Discharge Details Reason For Visit: Left shoulder surgery Attending Provider: Car Wheeler Primary Care Provider: Shai Mcdaniel Home Meds and New Rx's Prescriptions: New naproxen 250 mg tablet 250 - 500 mg PO BID PRNQty: 40 0RF Rx Instructions: take with a meal aspirin 81 mg tablet,delayed release (DR/EC) 81 mg PO DAILY 14 Days Qty: 14 0RF oxycodone 5 mg tablet 5 - 10 mg PO Q4H MDD 30 mg PRN (Reason: moderate to severe pain) Qty: 18 0RF Continued trazodone 100 mg tablet 100 mg PO QHS Qty: 90 3RF metoprolol succinate 50 mg tablet extended release 24 hr 50 mg PO DAILY Qty: 90 3RF multivitamin [Once Daily] 1 EACH tablet 1 ea PO DAILY tamsulosin 0.4 mg capsule 0.8 mg PO DAILY Qty: 180 3RF Rx Instructions: dose increase 09/23/20 amlodipine-benazepril [Lotrel] 10-40 mg capsule 1 cap PO DAILY Qty: 90 4RF pantoprazole [Protonix] 40 mg tablet,delayed release (DR/EC) 40 mg PO DAILY Qty: 90 3RF gemfibrozil [Lopid] 600 mg tablet 600 mg PO DAILY Qty: 90 3RF acetaminophen 500 mg capsule 1,000 mg PO Q8H PRN (Reason: pain) Qty: 90 0RF Discontinued prednisone 10 mg tablet 10 mg PO DAILY Qty: 90 3RF Discharge Instructions Additional Instructions: Surgery: Left shoulder arthroscopy with partial rotator cuff repair, extensive debridement, and subacromial decompression. Activity: For 6 weeks, you should keep your arm at your side in a neutral position at all times except for physical therapy. Do not try to lift or raise your arm using your own muscles. You should use the sling whenever you are out of the house. You may have to adjust the abduction pillow or remove it for comfort. At home it is best to remove the sling and rest the arm on a pillow at your side or support the operative side with your other hand. You may allow the arm to dangle at your side. A physical therapy prescription will be sent electronically to begin in about 3 weeks. Prescriptions: Aspirin 81 mg take 1 daily to prevent a blood clot for 2 weeks Naproxen 250 mg take 1-2 every 12 hours with a meal as needed for moderate pain Oxycodone 5 mg take 1-2 every 4-6 hours as needed for severe pain You may use [id number] Tylenol (acetaminophen) as needed for mild pain. These pain medications may be taken all at once or in different combinations as needed. Also, recommend Colace (docusate) as a stool softener as surgery and pain medicine cause constipation. You may try lros-mrg-dauifbl diphenhydramine (Benadryl) 25-50 mg nightly as a sleep aid Dressings: Remove shoulder bandage after 3 days. Leave the sticky Steri-Strips in place until they fall off or remove them after you shower. Cover the incisions with Band-Aids or leave them open to air. You may shower after 5 days. Follow-up: 10-[address] Wheeler You may take off the leg compression stockings this evening at home. You may also leave them on a few days longer if you have a history of leg swelling or edema. Let us know right away if you develop any redness, drainage, fevers, chest pain, or trouble breathing. Do not drink alcohol or drive for at least 24 hours after anesthesia. Please call the office during business hours with any questions or concerns. Discharge Orders Discharge Orders: Discharge Order (Routine); Ordered 02/08/22 Ordered By: Car Wheeler DS: Diagnosis Discharge Diagnosis (1) Traumatic tear of left rotator cuff: Status: Acute
--- NOTE | 2022-02-08 14:51 | W.ANESNERVE ---
Nerve Block Single Injection Procedure Date and Time Date Performed: 02/08/22 Procedure Start: 11:45 Location Where Procedure Performed Procedure Location: Day Surgery Unit Reason Performed: Postoperative Analgesia Requesting Provider: Car Wheeler Timeout Performed Timeout Performed: Yes Monitoring Used ECG, Blood Pressure, SpO2 and ETCO2 Sterility Sterility: Hand Hygiene, Surgical Cap, Surgical Mask, Sterile Gloves and Chlorhexidine Sedation Given During Procedure Sedation Given (Indicate Dose Given): Versed IV Dose:: 2 mg Patient Mental Status Patient Mental Status: Awake Nerve Block 1st Nerve Block: Laterality: Left Block Type: Infraclavicular Needle / Catheter Used: 80mm SonoPlex II Local Anesthetic Bolus (Indicate Dose Given): Lidocaine used for local infiltration of skin, Injected in 3-5ml increments after negative blood aspiration and Bupivacaine 0.5% Dose:: 14 mL Additives (Indicate Dose Given): Precedex Dose:: 80 mcg Ultrasound: Sterile probe cover and gel used Ultrasound Image Saved?: Yes Nerve Stimulator: Supplement to Ultrasound use and No twitch or parasthesia noted < 0.5 mA Paresthesia: None Procedure Tolerated: No Complications Procedure Outcome: Successful Performed By: Jeremiah Pederson
--- NOTE | 2022-02-08 16:05 | W.ANESPOSTOP ---
Postoperative Evaluation Date, Time and Location Date Performed: 02/08/22 Time Performed: 16:05 Patient Location: Day Surgery Unit Vital Signs Most Recent Imported Vital Signs: Most Recent Vital Signs Temp Pulse Resp BP Pulse Ox 36.4 C L 61 19 115/78 94 02/08/22 15:50 02/08/22 15:50 02/08/22 15:50 02/08/22 15:50 02/08/22 15:50 Pain Score Most Recent Pain Score: Most Recent Pain Score Pain Level 0 02/08/22 15:50 Assessment Mental Status: Awake (Alert & Oriented to Patient Baseline) Airway and Respiratory Function: Patent airway with normal (patient baseline) respiratory exam Cardiovascular Function: Hemodynamically Stable Hydration Status: Adequately Hydrated Nausea & Vomiting: No Nausea or Vomiting Pain: Pt. Denies Any Pain Peripheral Nerve Block: Regional nerve block not resolved at time of post operative discharge Postoperative Comments:: Patient has been off of neosynephrine for over 20 minutes and has remained hemodynamically stable. Denies pain, denies nausea, and doing very well. Oxygen saturations 92-93% on RA. Coached to cough and deep breathe with good effect. Educated to call anesthesia if any concerns.
== END 2022-02-08 18:15 | disposition home or self-care (01) ==
PROVIDERS: PCP Family Medicine; Visit Provider Student in an Organized Health Care Education/Training Program
PROC: (CPT 29827; principal; 2022-02-08 11:00)
DX: S46.012A Strain of muscle(s) and tendon(s) of the rotator cuff of left shoulder, initial encounter (principal); M75.52 Bursitis of left shoulder; M24.112 Other articular cartilage disorders, left shoulder; M65.812 Other synovitis and tenosynovitis, left shoulder; M94.212 Chondromalacia, left shoulder; X58.XXXA Exposure to other specified factors, initial encounter
CPT/HCPCS: 29827; 29826; 29823; 76942; J0690; J1100; J2250; J2370; J2405; J2704

== ENCOUNTER → 2022-03-15 03:01 | Outpatient (CLI) | payer OTHER, SELFPAY ==
[2022-03-15 09:38] LABS: CREATININE 0.8 mg/dL (0.70-1.30); Estimated GFR 98.21 (mL/min/1.73m2)
--- NOTE | 2022-03-15 10:20 | DI.CT_ITS ---
Exam(s) CT THORAX ABD/PEL CTA EXAM: CT THORAX ABD/PEL CTA TECHNIQUE: CT angiography of the chest, abdomen and pelvis was performed with bolus infusion of 125 cc of Omnipaque 350. Axial CT angiography was performed with multi-slice acquisition and multi-planar and/or 3D reconstruc tions. COMPARISON: CR XR SHOULDER LT COMPLETE 2+V from 09/19/2021 CT,NM,TMT NM MPI REST STRESS GRP from 11/21/2021 FINDINGS: The lungs are clear. No pleural effusion. No evidence of pulmonary embolic disease. Thoracic aorta is ectatic at 46 millimeters. No evidence of aortic dissection period. Major branches of the thorac ic aorta appear normal. No pleural effusion. No mediastinal or hilar adenopathy. Tracheobronchial tr ee appears intact. Note is made of coronary artery calcification. No focal hepatic abnormality seen. There is hepatic steatosis. No evidence of hydronephrosis or nephrolithiasis. Gallbladder and bile ducts are CT normal. Pancreas is unremarkable. Spleen is unremarkable. No abdominal aortic aneurysm or dissection. Major branches of the abdominal aorta appear normal excep t for mild atheromatous wall calcification.. No abdominal or pelvic adenopathy. Normal appendix. No significant abdominal wall hernia. No focal bowel pathology. IMPRESSION: No evidence of acute vascular abnormality of the chest, abdomen or pelvis. Thoracic aorta is ectatic at 46 millimeters. No other abnormalities are seen. RADIATION DOSE DELIVERED: 1,217.01mGy.cm Total DLP 1,217.01mGy.cm Total DLP !Error CTDIvol DATA REPOSITORY: All CT scans at this facility are submitted to the National Radiology Data Registry (NRDR) Dose Index Registry (DIR) with the [employer] (ACR). RADIATION OPTIMIZATION: All CT scans at this facility use at least one of these dose optimization te chniques: automated exposure control; mA and/or kV adjustment per patient size (includes targeted exa ms where dose is matched to clinical indication); or iterative reconstruction.
[2022-03-15] MEDS: Omnipaque 350 MG/ML 500 ML BTL-Imaging package IJ (10:23)
== END ==
PROVIDERS: PCP Family Medicine; Visit Provider Family Medicine
DX: I71.21 Aneurysm of the ascending aorta, without rupture (principal)
CPT/HCPCS: 71275; 74174; 82565

== ENCOUNTER 2022-03-21 08:32 | Day surgery (SDC) | payer OTHER, SELFPAY ==
[2022-03-21] VITALS (11 sets, daily range): BP systolic 118–142; BP diastolic 74–98; PULSE 54–74; RESP 16–20; TEMP 36.1–36.7; O2SAT 92–97; BMI 34.9
[2022-03-21] MEDS: Lactated Ringers 1,000 ML 80 ML IV (09:16)
--- NOTE | 2022-03-21 09:51 | ANES.PREOP_ITS ---
General Info Date of Service Date Performed: 03/21/22 Height: 5 ft 7 in Weight: 101.1 kg Body Mass Index (BMI): 34.9 Surgical Procedure: Operation Date: 03/21/22 10:55 Proposed Procedure Side Surgeon p Thumb CMC Arthroplasty Right Eliseo Braga MD Meds Allergies and Home Medications Allergies Allergy/AdvReac Type Severity Reaction Status Date / Time No Known Allergies Allergy Verified 03/21/22 08:56 Home Medication Medication Instructions Recorded multivitamin (Once Daily tablet) 1 ea PO DAILY 10/21/12 acetaminophen 500 mg capsule 1,000 mg PO Q8H PRN pain #90 caps 03/18/18 amlodipine 10 mg-benazepril 40 mg 1 cap PO DAILY #90 tab-caps 10/02/21 capsule (Lotrel) pantoprazole 40 mg tablet,delayed 40 mg PO DAILY #90 tab-caps 11/01/21 release (Protonix) gemfibrozil 600 mg tablet (Lopid) 600 mg PO DAILY #90 tab-caps 12/12/21 naproxen 250 mg tablet 250 - 500 mg PO BID PRN #40 tabs 02/08/22 buspirone 15 mg tablet 7.5 - 15 mg PO BID PRN anxiety #30 02/27/22 tabs tamsulosin 0.4 mg capsule 0.8 mg PO DAILY #180 caps 02/27/22 trazodone 100 mg tablet 100 mg PO QHS #90 tabs 02/27/22 ibuprofen 800 mg tablet 800 mg PO Q8H PRN pain #90 tabs 03/13/22 meloxicam 15 mg tablet 1 tab PO DAILY 03/20/22 metoprolol succinate 50 mg 50 mg PO HS 03/20/22 tablet,extended release 24 hr Current Visit Medications: Current Medications Generic Name Dose Route Start Last Admin Trade Name Freq PRN Reason Stop Dose Admin Ringer's Solution 1,000 mls @ 80 mls/hr 03/21/22 06:00 03/21/22 09:16 IV 04/19/22 23:59 80 mls/hr INFUSION MARIANA Administration Cefazolin Sodium/Dextrose 2 gm in 50 mls @ 100 mls/hr 03/21/22 06:00 Ancef Duplex IVPB 03/21/22 16:00 PREOP MARIANA IV Miscellaneous Supplies 1 each 03/21/22 06:00 Iv Access IV 04/19/22 23:59 DIRECTED MARIANA Sodium Chloride 0 ml 03/21/22 06:00 Normal Saline Flush 10 Ml Syr IV 04/19/22 23:59 PRN PRN Sodium Chloride 0 ml 03/21/22 06:00 Normal Saline 10 Ml Vial IJ 04/19/22 23:59 DIRECTED PRN Sterile Water 0 ml 03/21/22 06:00 Water,Injection,Sterile 10 Ml Vial IJ 04/19/22 23:59 DIRECTED PRN PFSH Active Problems Active Problems: Problem Status Onset Code Ascending aortic aneurysm I71.21 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 Anxiety disorder F41.9 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 Hypertension I10 Dyslipidemia E78.5 GERD (gastroesophageal reflux disease) K21.9 Hypercholesterolemia 10/29/07 E78.00 Osteoarthritis of both knees M17.0 History of total bilateral knee replacement (TKR) Z96.653 Lumbosacral spondylosis without myelopathy M47.817 History of spinal surgery Z98.890 History of bursectomy Z98.890 History of arthroscopy of knee Z98.890 Alcohol abuse F10.10 Elevated liver enzymes R74.8 BPH w urinary obs/LUTS N40.1, N13.8 Pain of right thumb M79.644 Elbow pain, right M25.521 Right shoulder pain M25.511 Arthritis of carpometacarpal joint M19.049 Right rotator cuff tendinitis M75.81 Tendinitis of long head of biceps brachii of right shoulder M75.21 Depression F32.9 Bursitis of right shoulder M75.51 Salivary gland stone K11.5 Back pain M54.9 Bursitis of left shoulder M75.52 Biceps tendinitis of left shoulder M75.22 Arthritis of left acromioclavicular joint M19.012 Chest pain R07.9 Traumatic tear of left rotator cuff S46.012A Rotator cuff tear, right M75.101 Medical History Medical History Hearing loss Hypercholesterolemia Hypertension Osteoarthritis of knees, bilateral reassure Surgical History Surgical History BACK SURGERY (~04/2013) Colonoscopy - MAC 12/19/14 Excision, Olecranon Bursa (~08/2009) History of arthroscopy of both knees NEGATIVE STRESS TEST 04/03/17 11/21/21 S/P knee replacement (~03/14/18) DR. BRAGA; B/L Tobacco Smoking/Tobacco Use Status: Never Passive smoking exposure: Yes Second hand exposure: Yes Alcohol Alcohol Intake: current Alcohol intake frequency: a few times a week Alcohol t ype: beer Substance Use Substance use: Never Substance use type: does not use Vital Signs and Lab Results Vital Signs Most Recent Vital Signs in EMR: Most Recent Vital Signs Temp Pulse Resp BP Pulse Ox 36.7 C 54 L 18 132/74 97 03/21/22 08:40 03/21/22 08:40 03/21/22 08:40 03/21/22 08:40 03/21/22 08:40 Lab Results Blood Type / Crossmatch: No Data to Display Complete Blood Count: No Data to Display Complete Metabolic Panel: Creatinine 0.8 mg/dL (0.70-1.30) 03/15/22 09:15 Est GFR (CKD-EPI 2020) 98.21 (mL/min/1.73m2) 03/15/22 09:15 Liver Function Panel: No Data to Display Coagulation Panel: No Data to Display Cardiac Panel: No Data to Display Arterial Blood Gas: No Data to Display Venous Blood Gas: No Data to Display Pancreas Panel: No Data to Display Thyroid Panel: No Data to Display Infectious Disease: No Data to Display Blood Cultures: No Data to Display Toxicology Panel: No Data to Display Imaging and Studies Imaging and Studies Study information below may be from another EMR and interpreted by another provider. Please see original notes in EMR for more complete details. EKG Summary: 11/26/2017: Summary: 1. Left ventricle: The cavity size was below normal. Wall thickness was increased in a pattern of moderate LVH. Systolic function was hyperdynamic. The estimated ejection fraction was 65-70%. There was no significant dynamic obstruction at rest. Patient unable to perform Valsalva. Wall motion was normal; there were no regional wall motion abnormalities. Findings consistent with diastolic dysfunction. 2. Aortic valve: Trileaflet. Sclerosis without stenosis. 3. Aortic root: The aortic root was mildly dilated. 3.8 cm. 4. Ascending aorta: The ascending aorta was moderately dilated. 4.6 cm. 5. Left atrium: The atrium was mildly dilated. 6. Right ventricle: The cavity size was normal. Wall thickness was normal. Systolic function was normal. Stress Test Summary: 10/2021: 9.19 METS, 78% max HR, nondiagnostic EKG portion, MPI with normal perfusion and no evidence of ischemia. LVEF 57%. Stress ECG Conclusion 1. Resting electrocardiogram was within normal limits 2. Patient underwent exercise testing using a combination of treadmill and pharmacologic stress with regadenoson 3. Normal blood pressure response to exercise. Blunted heart rate response, the patient achieved 78% of predicted heart rate for age 4. The electrocardiographic portion of the test was nondiagnostic due to inadequate heart rate 5. Atrial premature beats were noted 6. See MPI report MPI Conclusion Normal myocardial perfusion without evidence of ischemia or prior infarction EF is 57%. Wall motion is normal Echocardiogram Summary: 2018: LVEF 65-70%, ascending aorta 4.6 cm. Carotid Artery Summary:: 2018: no sig internal carotid stenosis. Anesthesia Assessment and Plan Anesthesia History Personal History: No History of Anesthesia Complications Family History: No Family History of Anesthesia Complications Exercise Tolerance Exercise Tolerance: Metabolic Equivalents>4 Cardiac & Pulmonary Exam Cardiac Exam: Normal S1/S2 Heart Sounds Pulmonary Exam: Clear Bilateral Breath Sounds Implantable Cardiac Device Does patient have a Pacemaker or an ICD?: No Airway Exam Known Difficult Airway: No Mallampati Class: 2 Mouth Opening: Normal (> 3cm) Thyromental Distance: Greater than 3 cm Neck Range of Motion: Full ROM Neck Circumference: Normal Teeth Condition: Normal Dentition ASA Classification ASA Score: ASA 2 Emergency Case?: No NPO Status NPO Status: NPO Clears >2 hours, Solids >8 hours Anesthesia Plan Resuscitation Status: Full Code Anesthesia Technique: General Anesthesia Airway Planned: LMA Monitors Used: Standard Monitors Preoperative Comments:: 66 yo male for thumb arthroplasty. Sig PMHx: HTN (metoprolol, amlodipine-benazepril), GERD (prantoprazole), chronic LBP (surgury 2012), EtOH abuse (currently states few times/week), depression. Denies change in health history since last anes with us. Previous Anes: - shoulder scope, mac 3 grade 1, easy mask.
--- NOTE | 2022-03-21 10:12 | HPE_ITS ---
Assessment and Plan Assessment and plan (1) Arthritis of carpometacarpal joint: Status: Acute Assessment and plan: Trapezial arthroplasty right wrist. Details of surgery were discussed with patient as well as risks and pertinent anatomy. All questions were answered. History of Present Illness History of Present Illness Chief Complaint: R thumb pain Narrative: Gary is a 66-year-old male who comes in today for a trapezial arthroplasty of his right wrist for longstanding CMC arthritis of the right thumb. There has be en an increase in pain with activities over the last many months. He has attempted activity modification as well as intra-articular injections at [facility] CMC joint which did provide him with relief, however the relief is now short lived. Since he has exhausted conservative treatments he was offered a trapezial arthroplasty of the right wrist and he is anxious to proceed. He has had recent successful shoulder surgery here with Dr. Wheeler on 02/08/2022. Pertinent Surgical Information Positive history for aortic root aneurysm with recent CT in the system. He underwent successful shoulder surgery with Dr. Wheeler on 02/08/2022. Review of Systems Constitutional Constitutional: Denies fever(s) ENT Ears, Nose, Mouth, and Throat: Denies dizziness and Denies sore throat Cardiovascular Cardiovascular: Denies chest pain, Denies palpitations and Denies dyspnea Respiratory Respiratory: Denies cough and Denies dyspnea Gastrointestinal Gastrointestinal: Denies abdominal pain, Denies melena, Denies hematochezia, Denies diarrhea, Denies nausea and Denies vomiting Genitourinary Genitourinary: Denies hematuria and Denies dysuria Neurologic Neurologic: Denies dizziness Endocrine Endocrine: Denies palpitations PFSH All Active Problems Ascending aortic aneurysm (Acute) Aortic root aneurysm (Acute) Anxiety disorder (Acute) Vertiginous syndrome (Chronic) Hypertension (Chronic) Dyslipidemia (Chronic) GERD (gastroesophageal reflux disease) (Chronic) Hypercholesterolemia (Chronic 10/29/07) Osteoarthritis of both knees (Chronic) History of total bilateral knee replacement (TKR) (Chronic) DOS: 03/14/18 Dr. Tate Lumbosacral spondylosis without myelopathy (Acute) 06/11/18 s/p lumbar/sacral medial branch block-[facility]- History of spinal surgery (Acute) History of bursectomy (Acute) History of arthroscopy of knee (Acute) Alcohol abuse (Acute) Elevated liver enzymes (Acute) BPH w urinary obs/LUTS (Acute) Pain of right thumb (Acute) Elbow pain, right (Acute) Right shoulder pain (Acute) Arthritis of carpometacarpal joint (Acute) Right thumb injection: 08/19/2020; 04/06/21; 10/09/21 Right rotator cuff tendinitis (Acute) Tendinitis of long head of biceps brachii of right shoulder (Acute) Depression (Chronic) Bursitis of right shoulder (Acute) Salivary gland stone (Acute) Back pain (Acute) Bursitis of left shoulder (Acute) Biceps tendinitis of left shoulder (Acute) Arthritis of left acromioclavicular joint (Acute) Chest pain (Acute) Traumatic tear of left rotator cuff (Acute) Rotator cuff tear, right (Acute) Medical History Hearing loss Hypercholesterolemia Hypertension Osteoarthritis of knees, bilateral reassure Surgical History BACK SURGERY (~04/2013) Colonoscopy - MAC 05/14/14 Excision, Olecranon Bursa (~08/2009) History of arthroscopy of both knees NEGATIVE STRESS TEST 04/03/17 11/21/21 S/P knee replacement (~03/14/18) DR. TATE; B/L Family History (Updated 05/12/19 @ 11:34 by Daniel Coreas) Mother , AGE 88 Diabetes Essential hypertension Hyperlipidemia Father , AGE 79 Essential hypertension Depression Heart disease Substance abuse Maternal Grandmother Stroke Sister Essential hypertension Sister No problems noted. Sister Multiple sclerosis Brother Depression Substance abuse Alcohol abuse Hypertension Brother No problems noted. Son No problems noted. Daughter No problems noted. Social History (Updated 05/23/21 @ 16:31 by Tierra Eisenberg) Smoking/Tobacco Use Status: Never Second Hand Exposure: Yes Smoking risk assessment performed?: Yes Alcohol Intake: current Alcohol Intake frequency: a few times a week Alcohol type: beer Drug use: Never Substance use type: does not use Caregiver/Support person: No Household members: spouse Housing: house Communication Needs: Hard of Hearing Do you need help understanding health information?: Rarely Pets and animals: No Sexually active: No Do you think of yourself as: straight/heterosexual Current gender identity: male What is your relationship status?: How often do you talk on the phone with friends or family?: three or more times per week How often do you get together with friends or relatives?: twice per week How often do you attend congregation or denominational services?: decline to answer Do you belong to any clubs or organized social groups?: decline to answer Panel score (0-1 are the most socially isolated patients): 2 What type of physical activity do you participate in: walking Duration: > 90 minutes/day Frequency: 3-4 times per week Mine/Congregation: [employer] Seatbelt use: sometimes Drive intox 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 Do you feel safe at home: Yes Do you feel safe in your relationship?: Yes Victim of physical abuse: No Victim of emotional abuse: No Victim of sexual abuse: No Would you like helpful sources: No Meds Allergies and Home Medications Allergies Allergy/AdvReac Type Severity Reaction Status Date / Time No Known Allergies Allergy Verified 03/21/22 08:56 Home Medications Medication Instructions Recorded Confirmed Type multivitamin (Once Daily tablet) 1 ea PO DAILY 10/21/12 03/21/22 History acetaminophen 500 mg capsule 1,000 mg PO Q8H PRN pain #90 caps 03/18/18 03/21/22 Rx amlodipine 10 mg-benazepril 40 mg 1 cap PO DAILY #90 tab-caps 10/02/21 03/21/22 Rx capsule (Lotrel) pantoprazole 40 mg tablet,delayed 40 mg PO DAILY #90 tab-caps 11/01/21 03/21/22 Rx release (Protonix) gemfibrozil 600 mg tablet (Lopid) 600 mg PO DAILY #90 tab-caps 12/12/21 03/21/22 Rx naproxen 250 mg tablet 250 - 500 mg PO BID PRN #40 tabs 02/08/22 02/27/22 Rx buspirone 15 mg tablet 7.5 - 15 mg PO BID PRN anxiety #30 02/27/22 03/21/22 Rx tabs tamsulosin 0.4 mg capsule 0.8 mg PO DAILY #180 caps 02/27/22 03/21/22 Rx trazodone 100 mg tablet 100 mg PO QHS #90 tabs 02/27/22 03/21/22 Rx ibuprofen 800 mg tablet 800 mg PO Q8H PRN pain #90 tabs 03/13/22 03/21/22 Rx meloxicam 15 mg tablet 1 tab PO DAILY 03/20/22 History metoprolol succinate 50 mg 50 mg PO HS 03/20/22 03/21/22 History tablet,extended release 24 hr Exam Const General: cooperative and no acute distress Orientation: alert and awake HENND Head: normocephalic and atraumatic Eyes Conjunctivae: conjunctivae normal Sclera: sclerae normal Resp Effort & Inspection: normal respiratory effort Auscultation: clear to auscultation bilaterally and no wheezes Cardio Rate: regular rate Rhythm: regular rhythm Heart Sounds: S1 normal, S2 normal and no murmurs Results Last Vital Signs Temp 98.1 F 03/21/22 08:40 Pulse 54 L 03/21/22 08:40 Resp 18 03/21/22 08:40 BP 132/74 03/21/22 08:40 Pulse Ox 97 03/21/22 08:40
--- NOTE | 2022-03-21 10:15 | DI.RAD_ITS ---
Exam(s) XR WRIST RT LIMITED EXAM: XR WRIST RT LIMITED CLINICAL HISTORY: CMC arthritis of the right thumb TECHNIQUE: 2D and realtime digital imaging was performed. CONTRAST MATERIAL: Water soluble contrast was administered. COMPARISON: No exams were available for comparison FINDINGS: Fluoroscopy was provided for Dr. Tate during the performance of a joint replacement. Please ref er to the procedure report for complete details. IMPRESSION: RADIATION DOSE DELIVERED: festus Serrano=0.0 mGy
--- NOTE | 2022-03-21 10:36 | W.PM.DSUDISC ---
Date of service: 03/21/22 Time of Service: 10:41 Discharge Plan Disposition Patient Disposition: HOME Condition: Good Discharge Details Reason For Visit: Trapezial arthroplasty R wrist Attending Provider: Eliseo Tate Primary Care Provider: Shai Mcdaniel Home Meds and New Rx's Prescriptions: New acetaminophen 500 mg tablet 1,000 mg PO TID Qty: 90 3RF ibuprofen 600 mg tablet 600 mg PO TID PRNQty: 90 3RF oxycodone 5 mg tablet 5 mg PO Q6H MDD 15mg PRN (Reason: pain) Qty: 10 0RF Continued trazodone 100 mg tablet 100 mg PO QHS Qty: 90 3RF tamsulosin 0.4 mg capsule 0.8 mg PO DAILY Qty: 180 3RF Rx Instructions: dose increase 09/23/20 buspirone 15 mg tablet 7.5 - 15 mg PO BID PRN (Reason: anxiety) Qty: 30 1RF multivitamin [Once Daily] 1 EACH tablet 1 ea PO DAILY amlodipine-benazepril [Lotrel] 10-40 mg capsule 1 cap PO DAILY Qty: 90 4RF pantoprazole [Protonix] 40 mg tablet,delayed release (DR/EC) 40 mg PO DAILY Qty: 90 3RF gemfibrozil [Lopid] 600 mg tablet 600 mg PO DAILY Qty: 90 3RF metoprolol succinate 50 mg tablet extended release 24 hr 50 mg PO HS Discontinued ibuprofen 800 mg tablet 800 mg PO Q8H PRN (Reason: pain) Qty: 90 1RF acetaminophen 500 mg capsule 1,000 mg PO Q8H PRN (Reason: pain) Qty: 90 0RF naproxen 250 mg tablet 250 - 500 mg PO BID PRNQty: 40 0RF Rx Instructions: take with a meal meloxicam 15 mg tablet 1 tab PO DAILY Discharge Instructions Additional Instructions: Thumb CMC Discharge Instructions Activity: You should keep the hand/thumb elevated as much as possible for the first few days. You may use the other fingers as tolerated but avoid trying to do too much too soon. You may perform light activities with the splint in place. Dressing/Cast: Your splint should stay in place at all times. Do NOT get it wet. You may loosen the KINJAL wrap if you feel it is too tight and then rewrap more loosely. Medications: - You should take Tylenol and Ibuprofen for baseline pain control. - You have Oxycodone for breakthrough pain. - You may apply ice over the thumb. Follow-up: 10-14 days Referrals: Eliseo Tate MD [ [facility] STAFF PHYSICIAN] - Activity:: Elevate Remove Dressings/Wound Care:: Do Not Remove Shower/Bathe:: Cover Diet:: As Tolerated Discharge Orders Discharge Orders: Discharge Order (Routine); Ordered 03/21/22 Ordered By: Quentin Saab DS: Diagnosis Discharge Diagnosis (1) Arthritis of carpometacarpal joint: Status: Acute
[2022-03-21] MEDS: ceFAZolin 2 GM/50 ML BAG IVPB (10:56)
[2022-03-21] MEDS: Bupivacaine 0.25% Pres-Free 30 ML VIAL (11:04)
--- NOTE | 2022-03-21 13:13 | W.ANESPOSTOP ---
Postoperative Evaluation Date, Time and Location Date Performed: 03/21/22 Time Performed: 13:13 Patient Location: PACU Vital Signs Most Recent Imported Vital Signs: Most Recent Vital Signs Temp Pulse Resp BP Pulse Ox 36.5 C 74 20 139/80 93 03/21/22 12:55 03/21/22 13:00 03/21/22 13:00 03/21/22 13:00 03/21/22 13:00 Pain Score Most Recent Pain Score: Most Recent Pain Score Pain Level 0 03/21/22 13:00 Assessment Mental Status: Awake (Alert & Oriented to Patient Baseline) Airway and Respiratory Function: Patent airway with normal (patient baseline) respiratory exam Cardiovascular Function: Hemodynamically Stable Hydration Status: Adequately Hydrated Nausea & Vomiting: No Nausea or Vomiting Pain: Pt. Denies Any Pain Peripheral Nerve Block: Patient did not receive a nerve block
--- NOTE | 2022-03-21 20:01 | ROE_ITS ---
Date of service: 03/21/22 Time of Service: 11:00 Operative Note Operative Note DATE OF PROCEDURE: 03/21/22 PRE-OP DIAGNOSIS: Right Thumb CMC Arthritis POST-OP DIAGNOSIS: same PROCEDURE: Right trapezial resection arthroplasty with suture suspensionplasty SURGEON: Eliseo Tate [employer]EIGN BANK[employer] TELLER TRADER: Quentin Saab ANESTHESIA TYPE: General LMA/ETT Refer to Anesthesia Record ESTIMATED BLOOD LOSS: 5 PATHOLOGY: none sent TOURNIQUET TIME: 45 COMPLICATIONS: None Patient was transported to: PACU Patient's condition: stable Indications: Gary is a 66 year old male who has had symptoms of thumb CMC arthritis with pain and decreased mobility. Nonoperative treatment options had been trialed. Given their failure, I offered operative intervention. I reviewed the technical details. I reviewed the risk of the procedure to include bleeding, infection, pain, stiffness, instability, subsidence, damage to neighboring arteries, damage to the superficial radial nerve, and weakness. Despite these risks, the patient elected to proceed. Findings: There is notable arthrosis between the trapezium and the first metacarpal. The first metacarpal was significantly translated laterally and there was notable deformity of the trapezium. Procedure Description: Gary was greeted in the preoperative holding area. Name and surgical site were confirmed. The history and physical was completed. The consent was reviewed t he patient and signed. He was taken back to the operating room. The patient was placed and monitored anesthesia care. The [side] was then prepped with ChloraPrep and draped in a standard fashion after a nonsterile tourniquet was placed high up onto the arm. Prophylactic antibiotics in the form of cefazolin were administered. A timeout was performed for safe surgery. The surgical site was drawn on the skin overlying the dorsal radial border of the wrist. The planned surgical field was anesthetized with 0.25% bupivacaine with epinephrine. The limb was exsanguinated and the tourniquet was inflated where it stayed for 45 minutes. A 3 cm incision was made longitudinally over the radial wrist from the level of the radial styloid to just past the base of the first metacarpal. The skin was incised only. The deep tissue and subcutaneous fat was dissected with a tenotomy scissors trying to protect branches of the superficial radial nerve. Any branches that were identified were retracted out of the way. The first compartment extensor tendons were then identified. The interval between EPL and EPB was identified. The base of the first metacarpal was palpated. A needle was placed into the joint between the first metacarpal and the trapezium. A single x-ray was used to confirm appropriate positioning. The capsule of the trapezium was then incised. The radial border of the bone was identified. Soft tissues around trapezium were dissected bluntly to allow relaxation of vital arterial structures traversing the trapezium. Using a [place] blade the capsule was elevated off the trapezium in a subperiosteal fashion. Once it appeared to have all the capsular attachments released, the trapezium was then removed using a rongeur. The wound was inspected to make sure all portions of the trapezium were removed. X-ray was used to confirm appropriate removal of all bony fragments. The wound was then thoroughly irrigated. Using a 2-0 FiberWire then performed a suture razo spensionplasty. This was done by incorporating capsule and attachments of the APL at the base of the first metacarpal and creating a sling connected to the deep flexor carpi radialis tendon seen traversing deep within the wound towards the second metacarpal. This was done twice to create a crossing network of 2-0 suture. This was then tied overlying the base of the first metacarpal making sure not to over tighten and hourglass the tendons. This provided support to the first metacarpal to prevent any excessive subsidence. The tourniquet was then released. There is no significant bleeding. The capsule of the trapezium was then reapproximated with a 2-0 Vicryl. The skin was closed with 4-0 monocryl in a subcuticular fashion, reinforced with skin glue. The hand was dressed with 4 x 4's, web roll, into a soft thumb spica splint. All counts are correct. Gary was transferred back to PACU in a stable condition.
== END 2022-03-21 14:10 | disposition home or self-care (01) ==
PROVIDERS: PCP Family Medicine; Visit Provider Student in an Organized Health Care Education/Training Program
PROC: (CPT 25447; principal; 2022-03-21 10:45)
DX: M18.11 Unilateral primary osteoarthritis of first carpometacarpal joint, right hand (principal); I10 Essential (primary) hypertension; E78.5 Hyperlipidemia, unspecified; K21.9 Gastro-esophageal reflux disease without esophagitis
CPT/HCPCS: 25447; 25310; 73100; J0690; J1100; J2405; J2704

== ENCOUNTER 2023-02-27 08:06 | Outpatient (CLI) | payer OTHER, SELFPAY ==
[2023-02-27 10:49] LABS: CREATININE 0.9 mg/dL (0.70-1.30); Estimated GFR 94.19 (mL/min/1.73m2); Potassium 4.3 mmol/L (3.5-5.1)
== END 2023-02-27 08:07 | disposition home or self-care (01) ==
LOC: LOS 08:06
PROVIDERS: PCP Family Medicine; Referring Provider Family Medicine; Visit Provider Family Medicine
DX: I10 Essential (primary) hypertension (principal)
CPT/HCPCS: 36415; 82565; 84132

== ENCOUNTER 2023-04-09 12:44 | Emergency (ER) | payer OTHER, SELFPAY ==
[2023-04-09] VITALS (38 sets, daily range): BP systolic 138–171; BP diastolic 79–110; PULSE 46–83; RESP 11–22; TEMP 37; O2SAT 93–99
--- NOTE | 2023-04-09 12:45 | RT.EKG_ITS ---
APPROVED REPORT Exam: Resting ECG Reason for Exam: dizzt Patient Location: E HR:69 bpm ECG Measurements Heart Rate 69 AXIS VA 174 P 19 QRSd 90 QRS -46 QT 406 T 20 QTc 435 Conclusion Sinus rhythm...normal P axis, V-rate 60- 99 Left anterior fascicular block...axis(240,-40), init forces inf sinus rhythm with PVCs, left anterioir fasicular block. WD
--- NOTE | 2023-04-09 14:00 | DI.CT_ITS ---
Exam(s) CT BRAIN NECK CTA EXAM: CT BRAIN NECK CTA CLINICAL HISTORY: dizziness, SOSA. TECHNIQUE: Imaging Protocol: Axial CT angiography was performed with multi-slice acquisition and mu lti-planar and 3D reconstructions. CONTRAST MATERIAL: Intravenous: Omnipaque 350 Contrast volume:100 ml COMPARISON: CT CT THORAX ABD/PEL CTA from 03/15/2022 FINDINGS: CT Head W/O and W contrast: Ventricles and Extra axial spaces: Normal in size and morphology for the patient's age. Hemorrhage: None. Cerebral parenchyma: Normal. Midline shift: None. Brainstem/Cerebellum: Calcification of the dentate nuclei of the cerebellum. Calcifications in the b gale ganglia. Calvarium: Normal. Visualized Paranasal sinuses/Mastoids: Clear. Soft Tissues: Unremarkable. Enhancement: Normal. CTA Brain W: Internal Carotid Arteries: Petrous: Normal. Cavernous: Normal. Cerebral: Normal. Middle Cerebral Arteries: Right: No aneurysm, occlusion or significant stenosis. Left: No aneurysm, occlusion or significant stenosis. Anterior Cerebral Arteries: Right: No aneurysm, occlusion or significant stenosis. Left: No aneurysm, occlusion or significant stenosis. Posterior cerebral Arteries: Right: No aneurysm, occlusion or significant stenosis. Left: No aneurysm, occlusion or significant stenosis. Vertebral Arteries: Right: No aneurysm, occlusion or significant stenosis. Left: No aneurysm, occlusion or significant stenosis. Basilar Artery: No aneurysm, occlusion or significant stenosis. CTA Neck W: Common Carotid: Right: No dissection, occlusion or significant stenosis. Left: No dissection, occlusion or significant stenosis. External Carotid: Right: No dissection, occlusion or significant stenosis. Left: No dissection, occlusion or significant stenosis. Internal Carotid: Right: Mild calcific plaque no dissection, occlusion or significant stenosis. Left: Mild calcific plaque. No dissection, occlusion or significant stenosis. Vertebral Artery: Right: No dissection, occlusion or significant stenosis. Left: No dissection, occlusion or significant stenosis. Lung Apices: Lungs clear. Ascending aorta measures 5.2 cm. Bones: Advanced degenerative changes. No acute abnormality. Soft Tissues: Normal. IMPRESSION: 1. Normal CTA examination of the [place]. 2. Unremarkable CT Head. 3. Mild calcific plaque at the proximal internal carotid arteries. No significant stenosis. No evid ence of dissection. RADIATION DOSE DELIVERED: Total DLP DATA REPOSITORY: All CT scans at this facility are submitted to the National Radiology Data Registry (NRDR) Dose Index Registry (DIR) with the [employer] (A[employer]). RADIATION OPTIMIZATION: All CT scans at this facility use at least one of these dose optimization te chniques: automated exposure control; mA and/or kV adjustment per patient size (includes targeted exa ms where dose is matched to clinical indication); or iterative reconstruction.
--- NOTE | 2023-04-09 14:00 | DI.CT_ITS ---
Exam(s) CT CHEST PE CTA EXAM: CT CHEST PE CTA CLINICAL HISTORY: dizziness, chest pain. TECHNIQUE: Imaging Protocol: Axial CT angiography was performed with multi-slice acquisition and mu lti-planar reconstructions as well as axial, coronal and sagittal MIP reconstructions. CONTRAST MATERIAL: Intravenous: Omnipaque 350 Contrast volume:100 ml COMPARISON: CT CT THORAX ABD/PEL CTA from 03/15/[address] BRAIN NECK CTA from 04/09/2023 FINDINGS: Pulmonary Arteries: No evidence of filling defect to suggest pulmonary emboli. Tracheobronchial tree: Patent where visualized. Mediastinum and [place]: No dominant adenopathy or fluid collection. Pulmonary parenchyma: No consolidation or dominant measurable mass. Pleura: No effusion or pneumothorax. Mildly dilated. Mitral annular calcifications. Moderate coronary artery calcifications are seen. Aorta: Ascending aorta dilated 5.3 cm . This has increased from prior exam where it measured 4.8 cm. No dissection. Atherosclerotic changes. Upper abdomen: Unremarkable. Bones: Unremarkable for age. Tubes, Catheters, and Lines: None IMPRESSION: No evidence of pulmonary embolism. Ascending aorta measures 5.3 cm. No dissection. RADIATION DOSE DELIVERED: Total DLP DATA REPOSITORY: All CT scans at this facility are submitted to the National Radiology Data Registry (NRDR) Dose Index Registry (DIR) with the [employer] (ACR). RADIATION OPTIMIZATION: All CT scans at this facility use at least one of these dose optimization te chniques: automated exposure control; mA and/or kV adjustment per patient size (includes targeted exa ms where dose is matched to clinical indication); or iterative reconstruction.
[2023-04-09 14:17] LABS: Abs Immature Grans 0.02 10^3/uL (0.0-0.06); Absolute Basophil Count 0.05 10^3/uL (0.0-0.2); Absolute Eosinophil Count 0.14 10^3/uL (0.0-0.7); Absolute Lymphocyte Count 1.98 10^3/uL (1.2-3.4); Absolute Monocyte Count 0.64 10^3/uL (0.1-0.8); Absolute Neutrophil Count 2.86 10^3/uL (1.2-6.7); Basophils % 0.9; Eosinophils % 2.5; HCT 43.1 % (40.0-50.0); HGB 14.6 g/dL (13.5-17.5); Immature Grans % 0.4; Lymphocytes % 34.8; MCH 29.2 pg (27.0-33.0); MCHC 33.9 % (32.0-36.0); MCV 86 fL (80-95); MPV 10.1 fL (8.0-11.0); Monocytes % 11.2; Neutrophils % 50.2; Platelet Count 232 10^3/uL (130-400); RDW-SD 37.9 fL; WBC 5.69 10^3/uL (4.4-10.8)
[2023-04-09] MEDS: Normal Saline 500 ML IV (14:21)
[2023-04-09] MEDS: LORazepam 2 MG/ML VIAL 0.5 MG IVP (14:21)
[2023-04-09 14:32] LABS: ALT 33 U/L (16-63); AST 17 U/L (15-37); Albumin 4.5 g/dL (3.4-5.0); Alkaline Phosphatase 94 U/L (46-116); Anion Gap 10.1 mmol/L (3-11); BUN 19 mg/dL (7-18); Bilirubin, Total 0.5 mg/dL (0.2-1.0); CO2 24.9 mmol/L (21.0-32.0); CREATININE 0.8 mg/dL (0.70-1.30); Calcium 9.4 mg/dL (8.5-10.1); Chloride 104 mmol/L (98-107); Estimated GFR 97.61 (mL/min/1.73m2); Glucose 106 mg/dL (74-106); Potassium 4.2 mmol/L (3.5-5.1); Sodium 139 mmol/L (136-145); Total Protein 7.8 g/dL (6.4-8.2)
[2023-04-09 14:42] LABS: Creatine Kinase 151 U/L (39-308); Troponin I < 50 ng/L (<or=60)
[2023-04-09] MEDS: Normal Saline Flush 10 ML SYR IVP (14:59)
[2023-04-09] MEDS: Omnipaque 350 MG/ML 100 ML BTL IJ (15:00)
[2023-04-09] MEDS: Normal Saline - Diluent 50 ML VIAL IJ (15:02)
--- NOTE | 2023-04-09 15:12 | ED.GENADUL_ITS ---
Discharge Plan Disposition Patient Disposition: Home Condition: Stable Discharge Details Clinical Impression: Chest pain Primary Care Provider: Shai Mcdaniel ED Provider: Ivonne Bean Home Meds and New Rx's Prescriptions: New metoprolol succinate 50 mg tablet extended release 24 hr 75 mg PO QHS Qty: 30 0RF Rx Instructions: Take 1 and a half tablets by mouth daily Continued buspirone 15 mg tablet 7.5 - 15 mg PO BID PRN (Reason: anxiety) Qty: 30 1RF tamsulosin 0.4 mg capsule 0.8 mg PO DAILY Qty: 180 3RF Rx Instructions: dose increase 09/23/20 trazodone 100 mg tablet 100 mg PO QHS Qty: 90 3RF multivitamin [Once Daily] 1 EACH tablet 1 ea PO DAILY amlodipine-benazepril [Lotrel] 10-40 mg capsule 1 cap PO DAILY Qty: 90 4RF pantoprazole [Protonix] 40 mg tablet,delayed release (DR/EC) 40 mg PO DAILY Qty: 90 3RF gemfibrozil [Lopid] 600 mg tablet 600 mg PO DAILY Qty: 90 3RF ibuprofen 600 mg tablet 600 mg PO TID PRN (Reason: pain) Qty: 90 3RF metoprolol succinate 50 mg tablet extended release 24 hr 50 mg PO HS Qty: 90 3RF acetaminophen 500 mg tablet 1,000 mg PO TID Qty: 90 3RF Discharge Instructions Instructions: Chest Pain (ED) Additional Instructions: Follow up with primary care provider in 3-5 days. Return to ED sooner if any worsening or concerns. Increase oral fluids. I did speak [place]ales [place] [facility] [place] he recommends increasing her metoprolol dose to 75 mg daily. Their clinic will call you to make you an appointment for follow-up. Please continue the rest of your medications as previously prescribed. Referrals: [facility] [Outside] - 2 days Shai Mcdaniel MD [Primary Care Provider] - 5 days Discharge Data Discharge Date/Time-TO BE ENTERED AT DEPARTURE: 04/09/23 18:07 Medical Decision Making <KAI Fairbanks - Last Filed: 04/11/23 12:16> 63-year-old male presenting with his for headaches was some intermittent chest pain over the course of the past week Patient reports that he is felt quite tired He does have a known history of thoracic ascending aorta ectasia but has not been followed Patient is in no acute distress, initially vitals are stable He does not endorse current headache, he is notably poor historian, says this is typical with his anxiety regarding health care Because of his age, presenting complaints and comorbidities, CTA head neck and chest were ordered, I did review patient's CTA of his chest abdomen pelvis from prior assessment He on CTA of his chest does have evidence of a slightly enlarging thoracic ascending aorta, and prior assessment in 2021 was 4.8 cm progressing to 5.3 cm, no evidence of pulmonary embolism, pulses intact all 4 extremities, blood pressures relatively symmetrical in bilateral upper extremities, not endorsing any current chest discomfort, ambulatory with steady gait, orthostatics within normal limits Diagnostic labs do not show evidence of acute abnormality, patient will need consultation with CT surgery regarding enlarging aorta Patient remained stable in the emergency department, will transition care to pending CT surgery consultation repeat troponin at [address] surgery consulation and repeat troponin <Ivonne Bean NP - Last Filed: 04/09/23 18:31> 63-year-old male presenting with his for headaches was some intermittent chest pain over the course of the past week Patient reports that he is felt quite tired He does have a known history of thoracic ascending aorta ectasia but has not been followed Patient is in no acute distress, initially vitals are stable He does not endorse current headache, he is notably poor historian, says this is typical with his anxiety regarding health care Because of his age, presenting complaints and comorbidities, CTA head neck and chest were ordered, I did review patient's CTA of his chest abdomen pelvis from prior assessment He on CTA of his chest does have evidence of a slightly enlarging thoracic ascending aorta, and prior assessment in 2021 was 4.8 cm progressing to 5.3 cm, no evidence of pulmonary embolism, pulses intact all 4 extremities, blood pressures relatively symmetrical in bilateral upper extremities, not endorsing any current chest discomfort, ambulatory with steady gait, orthostatics within normal limits Diagnostic labs do not show evidence of acute abnormality, patient will need consultation with CT surgery regarding enlarging aorta Patient remained stable in the emergency department, will transition care to pending CT surgery consultation repeat troponin at [address] surgery consulation and repeat troponin 1622: Care assumed from provider (KAI Fairbanks) Please see their initial HPI, PE, and documentation. Discussed patient details and case and pending workup and disposition. Patient is hemodynamically stable, and alert and oriented. At the time of signout [place] [facility] [place] for [place]A chest resu lts of a enlarging ascending aortic aneurysm from 4.8-5.3. Blood pressure on the left is 159/92. 1631: [facility] [place] paged for consult[place] 1658: [facility] [place] Mor[place] With cardiac surgery, He is measuring the aorta at 4.8 he recommends increasing his Metoprolol to 75 mg and he will get him a follow up clinic visit. Patient discharged in hemodynamically stable condition. Prescription written for 75 mg of metoprolol. This text was generated using Higgleation system, please disregard any oddities of phrase or misspellings. HPI <KAI Fairbanks - Last Filed: 04/11/23 12:16> General Date/Time Provider Initiated Documentation: 04/09/23 13:22 . HPI Narrative: This 67-year-old male presents with report of recurrent presyncopal symptoms, states he is felt generally ill and tired for the past week. Denies any fever or chills. Denies any falls or injuries. Denies any new medications. States today he felt like he could not drive so called his to come and pick him up. Denies dizziness but does report lightheadedness. Went to the manager voice today for hearing test for hearing aids and there is about a 30% hearing loss and audiology recommended to schedule patient for MRI imaging within the next year. States symptoms are both at rest and with ambulation. Related Data Home Medications Medication Instructions Recorded Confirmed multivitamin (Once Daily tablet) 1 ea PO DAILY 10/21/12 04/09/23 acetaminophen 500 mg tablet 1,000 mg (2 x 500 mg) PO TID #90 03/21/22 04/09/23 tabs amlodipine 10 mg-benazepril 40 mg 1 cap PO DAILY #90 tab-caps 09/26/22 04/09/23 capsule (Lotrel) pantoprazole 40 mg tablet,delayed 40 mg PO DAILY #90 tab-caps 10/01/22 04/09/23 release (Protonix) gemfibrozil 600 mg tablet (Lopid) 600 mg PO DAILY #90 tab-caps 11/08/22 04/09/23 ibuprofen 600 mg tablet 600 mg PO TID PRN pain #90 tabs 11/08/22 04/09/23 metoprolol succinate 50 mg 50 mg PO HS #90 tabs 11/29/22 04/09/23 tablet,extended release 24 hr buspirone 15 mg tablet 7.5 - 15 mg (0.5 - 1 x 15 mg) PO 02/27/23 04/09/23 BID PRN anxiety #30 tabs tamsulosin 0.4 mg capsule 0.8 mg (2 x 0.4 mg) PO DAILY #180 02/27/23 04/09/23 caps trazodone 100 mg tablet 100 mg PO QHS #90 tabs 02/27/23 04/09/23 metoprolol succinate 50 mg 75 mg (1.5 x 50 mg) PO QHS High 04/09/23 tablet,extended release 24 hr blood pressure #30 tabs Previous Rx's Medication Instructions Recorded acetaminophen 500 mg tablet 1,000 mg (2 x 500 mg) PO TID #90 03/21/22 tabs amlodipine 10 mg-benazepril 40 mg 1 cap PO DAILY #90 tab-caps 09/26/22 capsule (Lotrel) pantoprazole 40 mg tablet,delayed 40 mg PO DAILY #90 tab-caps 10/01/22 release (Protonix) gemfibrozil 600 mg tablet (Lopid) 600 mg PO DAILY #90 tab-caps 11/08/22 ibuprofen 600 mg tablet 600 mg PO TID PRN pain #90 tabs 11/08/22 metoprolol succinate 50 mg 50 mg PO HS #90 tabs 11/29/22 tablet,extended release 24 hr buspirone 15 mg tablet 7.5 - 15 mg (0.5 - 1 x 15 mg) PO 02/27/23 BID PRN anxiety #30 tabs tamsulosin 0.4 mg capsule 0.8 mg (2 x 0.4 mg) PO DAILY #180 02/27/23 caps trazodone 100 mg tablet 100 mg PO QHS #90 tabs 02/27/23 metoprolol succinate 50 mg 75 mg (1.5 x 50 mg) PO QHS High 04/09/23 tablet,extended release 24 hr blood pressure #30 tabs Allergies Allergy/AdvReac Type Severity Reaction Status Date / Time No Known Allergies Allergy Verified 04/09/23 12:51 General Stated Complaint: Dizzy/Sync TERA: 2 PFSH <KAI Fairbanks - Last Filed: 04/11/23 12:16> All Active Problems (Updated 04/10/23 @ 08:52 by Shai Mcdaniel MD) Pre-syncope (Acute) Chest pain (Acute) Sensorineural hearing loss (Acute) Arthrosis (Acute) Vertiginous syndrome (Chronic) Hypertension (Chronic) Dyslipidemia (Chronic) GERD (gastroesophageal reflux disease) (Chronic) Hypercholesterolemia (Chronic 10/29/07) Osteoarthritis of both knees (Chronic) History of total bilateral knee replacement (TKR) (Chronic) DOS: 03/14/18 Dr. Tate Lumbosacral spondylosis without myelopathy (Acute) 06/11/18 s/p lumbar/sacral medial branch block-Pain clinic- History of spinal surgery (Acute) History of bursectomy (Acute) History of arthroscopy of knee (Acute) Alcohol abuse (Acute) Elevated liver enzymes (Acute) BPH w urinary obs/LUTS (Acute) Pain of right thumb (Acute) Elbow pain, right (Acute) Right shoulder pain (Acute) Arthritis of carpometacarpal joint (Acute) Right thumb injection: 08/19/2020; 04/06/21; 10/09/21 S/P CMC arthroplasty: 03/21/2022 Right rotator cuff tendinitis (Acute) Tendinitis of long head of biceps brachii of right shoulder (Acute) Depression (Chronic) Bursitis of right shoulder (Acute) Salivary gland stone (Acute) Back pain (Acute) Bursitis of left shoulder (Acute) Arthritis of left acromioclavicular joint (Acute) Chest pain (Acute) Traumatic tear of left rotator cuff (Acute) Rotator cuff tear, right (Acute) Anxiety disorder (Acute) Aortic root aneurysm (Acute) Ascending aortic aneurysm (Acute) 5.[address] 04/18 Left shoulder pain (Acute) Numbness of right hand (Acute) Presbycusis (Acute) Bilateral carpal tunnel syndrome (Acute) Medical History Biceps tendinitis of left shoulder Osteoarthritis of knees, bilateral reassure Hypertension Hypercholesterolemia Hearing loss Surgical History S/P knee replacement (~03/14/18) DR. TATE; B/L History of arthroscopy of both knees NEGATIVE STRESS TEST 04/03/17 11/21/21 Excision, Olecranon Bursa (~08/2009) Colonoscopy - MAC 05/14/14 BACK SURGERY (~04/2013) Family History Mother , AGE 88 Diabetes Essential hypertension Hyperlipidemia Father , AGE 79 Essential hypertension Depression Heart disease Substance abuse Maternal Grandmother Stroke Sister Essential hypertension Sister No problems noted. Sister Multiple sclerosis Brother Depression Substance abuse Alcohol abuse Hypertension Brother No problems noted. Son No problems noted. Daughter No problems noted. Social History Smoking/Tobacco Use Status: Never Second Hand Exposure: Yes Smoking risk assessment performed?: Yes Alcohol Intake: current Alcohol Intake frequency: a few times a week Alcohol type: beer Drug use: Never Substance use type: does not use Caregiver/Support person: No Household members: spouse Housing: house Communication Needs: Hard of Hearing Do you need help understanding health information?: Rarely Pets and animals: No Sexually active: No Do you think of yourself as: straight/heterosexual Current gender identity: male What is your relationship status?: How often do you talk on the phone with friends or family?: three or more times per week How often do you get together with friends or relatives?: once per week How often do you attend congregational or mandaen services?: decline to answer Do you belong to any clubs or organized social groups?: no Panel score (0-1 are the most socially isolated patients): 2 What type of physical activity do you participate in: none Mine/Protestant: None Seatbelt use: sometimes Drive intox or ride w/intox fence 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: No Do you feel safe at home: Yes Do you feel safe in your relationship?: Yes Victim of physical abuse: No Victim of emotional abuse: No Victim of sexual abuse: No Would you like helpful sources: No Course <KAI Fairbanks - Last Filed: 04/11/23 12:16> Vital Signs Vital signs: Vital Signs Temperature 37.0 C 04/09/23 12:48 Pulse 83 04/09/23 12:48 Respiratory Rate 19 04/09/23 12:48 Blood Pressure 149/91 H 04/09/23 12:48 Pulse Oximetry 98 04/09/23 12:48 Temperature 37.0 C 04/09/23 12:48 Temperature Source Skin 04/09/23 12:48 Pulse 63 04/09/23 14:12 Respiratory Rate 17 04/09/23 14:00 Respiratory Effort Normal, Non-Labored 04/09/23 12:54 Respiratory Depth Normal 04/09/23 12:54 Respiratory Pattern Normal 04/09/23 12:54 Blood Pressure 141/80 H 04/09/23 14:12 Blood Pressure Position Sitting 04/09/23 12:48 Pulse Oximetry 95 04/09/23 14:12 Oxygen Delivery Method Room Air 04/09/23 14:12 Oxygen Flow Rate 0 04/09/23 14:12 Pain Level 2 04/09/23 12:48 Lab/Test Results Lab/Test Results: Laboratory Tests Range/Units 04/09/23 14:00 WBC (4.4-10.8) 10^3/uL 5.69 RBC (4.36-5.78) 10^6/uL 5.00 Hgb (13.5-17.5) g/dL 14.6 Hct (40.0-50.0) % 43.1 MCV (80-95) fL 86 MCH (27.0-33.0) pg 29.2 MCHC (32.0-36.0) % 33.9 RDW (11.8-14.1) % 12.0 Plt Count (130-400) 10^3/uL 232 MPV (8.0-11.0) fL 10.1 Immature Gran % 0.4 Neutrophils % 50.2 Lymphocytes % 34.8 Monocytes % 11.2 Eosinophils % 2.5 Basophils % 0.9 Nucleated RBC % (0.0-0.3) % 0.0 Absolute Neutrophils (1.2-6.7) 10^3/uL 2.86 Absolute Lymphocytes (1.2-3.4) 10^3/uL 1.98 Absolute Monocytes (0.1-0.8) 10^3/uL 0.64 Absolute Eosinophils (0.0-0.7) 10^3/uL 0.14 Absolute Basophils (0.0-0.2) 10^3/uL 0.05 Sodium (136-145) mmol/L 139 Potassium (3.5-5.1) mmol/L 4.2 Chloride (98-107) mmol/L 104 Carbon Dioxide (21.0-32.0) mmol/L 24.9 Anion Gap (3-11) mmol/L 10.1 BUN (7-18) mg/dL 19 H Creatinine (0.70-1.30) mg/dL 0.8 Est GFR (CKD-EPI 2020) (mL/min/1.73m2) 97.61 Glucose (74-106) mg/dL 106 Calcium (8.5-10.1) mg/dL 9.4 Magnesium (1.8-2.4) mg/dL 2.0 Total Bilirubin (0.2-1.0) mg/dL 0.5 AST (15-37) U/L 17 ALT (16-63) U/L 33 Alkaline Phosphatase (46-116) U/L 94 Creatine Kinase (39-308) U/L 151 Troponin I (<or=60) ng/L < 50 Total Protein (6.4-8.2) g/dL 7.8 Albumin (3.4-5.0) g/dL 4.5 TSH (0.36-3.74) uIU/mL 1.90 Sign Out <KAI Fairbanks - Last Filed: 04/11/23 12:16> Sign Out Data: Sign Out Comment: pending ct surgery consultation and repeat troponin at 1704 Last updated by Corrie Ram PA at 04/09/23 16:04
[2023-04-09 15:41] LABS: Bilirubin Negative (Negative); Blood Negative (Negative); Clarity Clear (Clear); Glucose Negative (Negative); Ketones Negative (Negative); Leukocyte Esterase Negative (Negative); Nitrite Negative (Negative); Urobilinogen 0.2 mg/dL (Up to 0.2); pH 5.5 (5-8)
[2023-04-09 17:41] LABS: Troponin I < 50 ng/L (<or=60)
== END 2023-04-09 18:07 | disposition home or self-care (01) ==
PROVIDERS: Physician Assistant; Emergency Provider Registered Nurse Emergency; PCP Family Medicine
DX: R42 Dizziness and giddiness (principal); R07.9 Chest pain, unspecified; Z79.899 Other long term (current) drug therapy; R51.9 Headache, unspecified; I77.810 Thoracic aortic ectasia; I10 Essential (primary) hypertension; E78.5 Hyperlipidemia, unspecified
CPT/HCPCS: 70496; 70498; 71275; 80053; 82550; 93005; 96361; 96374; 99285; 81003; 83735; 84443; 84484; 85025; 93010; J2060; J3490

== ENCOUNTER 2023-04-11 09:44 | Outpatient (CLI) | payer OTHER, SELFPAY | END 2023-04-11 09:45 | disposition home or self-care (01) | PROVIDERS: PCP Family Medicine; Visit Provider Family Medicine | DX: R07.9 Chest pain, unspecified (principal); R55 Syncope and collapse | CPT/HCPCS: 93270 ==

== ENCOUNTER 2023-05-21 09:05 | Outpatient (CLI) | payer OTHER, SELFPAY ==
--- NOTE | 2023-05-21 12:15 | W.CARDEVENT ---
Date of service: 05/21/23 Time of Service: 12:15 Cardiac Event Recorder Referring Provider:: Jonas Indications:: chest pain Cardiac Event Note: 1. The underlying rhythm is sinus, rate range 42 to 126 bpm. The slowest heart rate occurred during sleep. 2. Numerous supraventricular ectopics with a few runs of supraventricular tachycardia, longest 14 beats at about 150 bpm. PACs were sometimes aberrantly conducted. 3. 1 episode of atrial fibrillation with ventricular rate of 50 bpm detected, occurring at 4 AM on day . 4. No ventricular ectopy detected. 5. No correlation between patient triggered events and any arrhythmias.
== END 2023-05-21 09:06 | disposition home or self-care (01) ==
LOC: CARDOPNVT 09:05
PROVIDERS: PCP Family Medicine; Visit Provider Internal Medicine Interventional Cardiology
DX: R07.89 Other chest pain (principal); I47.10 Supraventricular tachycardia, unspecified
CPT/HCPCS: 00123

== ENCOUNTER 2023-05-28 08:40 | Outpatient (CLI) | payer OTHER, SELFPAY ==
[2023-05-28 13:15] LABS: Cholesterol 219 mg/dL (<200); HDL Cholesterol 33 mg/dL (40-60); Triglyceride 429 mg/dL (<150)
[2023-05-28 13:28] LABS: LDL CHOLESTEROL 109 mg/dL (<100)
== END 2023-05-28 08:41 | disposition home or self-care (01) ==
LOC: LOS 08:40
PROVIDERS: PCP Family Medicine; Visit Provider Family Medicine
DX: E78.5 Hyperlipidemia, unspecified (principal); E11.51 Type 2 diabetes mellitus with diabetic peripheral angiopathy without gangrene
CPT/HCPCS: 36415; 80061; 83721; 83036

== ENCOUNTER 2023-05-28 09:32 | Outpatient (CLI) | payer OTHER, SELFPAY ==
--- NOTE | 2023-05-28 09:30 | RT.EKG_ITS ---
APPROVED REPORT Exam: Resting ECG Reason for Exam: presyncope Patient Location: O HR:68 bpm ECG Measurements Heart Rate 68 AXIS ID 177 P 14 QRSd 88 QRS -48 QT 414 T 21 QTc 441 Conclusion Sinus rhythm...normal P axis, V-rate 50- 99 Left anterior fascicular block...axis(240,-40), init forces inf Abnormal R-wave progression, late transition...QRS area<0 in V5/V6 I have reviewed and interpreted ECG and agree with software generated interpretation.
== END 2023-05-28 09:33 | disposition home or self-care (01) ==
LOC: DI.CARD 09:33
PROVIDERS: PCP Family Medicine; Visit Provider Internal Medicine Interventional Cardiology
DX: R55 Syncope and collapse (principal)
CPT/HCPCS: 93010

== ENCOUNTER → 2023-06-07 02:31 | Outpatient (CLI) | payer OTHER, SELFPAY ==
--- NOTE | 2023-06-07 07:45 | DI.CT_ITS ---
Exam(s) CT THORAX CTA EXAM: CT THORAX CTA CLINICAL HISTORY: ascending aortic [id number],COMP TO 04/09/23,? DISCREPANCY. TECHNIQUE: Imaging Protocol: Axial CT angiography was performed with multi-slice acquisition and mu lti-planar and/or 3D reconstructions. CONTRAST MATERIAL: Intravenous: Omnipaque 350 contrast volume:100 mL COMPARISON: CT CT CHEST PE CTA from 04/09/2023 FINDINGS: Tracheobronchial tree: Patent where visualized. Pulmonary parenchyma: No consolidation or dominant measurable mass. No architectural distortion. Pulmonary Arteries: No evidence of filling defect to suggest pulmonary emboli. Mediastinum and Jo Ann: No dominant adenopathy or fluid collection. The esophagus is unremarkable. Visualized thyroid gland: Unremarkable. Pleura: No effusion or pneumothorax. Heart: The heart is not dilated. Coronary artery calcifications are present. No pericardial effusion . Aorta: The ascending thoracic aorta measures 5.1 x 4.8 cm. No evidence of dissection. Atherosclerosi s is present. Upper abdomen: Unremarkable. Soft tissues: Unremarkable. Bones: Within normal limits for the patient's age. IMPRESSION: Ascending thoracic aorta measures 5.1 x 4.8 cm. There is no evidence of dissection. RADIATION DOSE DELIVERED: 580.26mGy.cm Total DLP 580.26mGy.cm Total DLP DATA REPOSITORY: All CT scans at this facility are submitted to the National Radiology Data Registry (NRDR) Dose Index Registry (DIR) with the [employer] (ACR). RADIATION OPTIMIZATION: All CT scans at this facility use at least one of these dose optimization te chniques: automated exposure control; mA and/or kV adjustment per patient size (includes targeted exa ms where dose is matched to clinical indication); or iterative reconstruction.
[2023-06-07 13:37] LABS: CREATININE 0.8 mg/dL (0.70-1.30); Estimated GFR 97.61 (mL/min/1.73m2)
[2023-06-07] MEDS: Omnipaque 350 MG/ML 100 ML BTL IJ (13:50)
[2023-06-07] MEDS: Normal Saline - Diluent 50 ML VIAL IJ (13:51)
[2023-06-07] MEDS: Normal Saline Flush 10 ML SYR IVP (13:52)
== END ==
PROVIDERS: PCP Family Medicine; Visit Provider Internal Medicine Interventional Cardiology
DX: I77.810 Thoracic aortic ectasia (principal)
CPT/HCPCS: 71275; 82565; J3490

== ENCOUNTER → 2023-08-20 11:56 | Outpatient (CLI) | payer OTHER, SELFPAY ==
--- NOTE | 2023-08-20 10:45 | DI.RAD_ITS ---
Exam(s) XR CHEST 2V PA LATERAL EXAM: XR CHEST 2V PA LATERAL CLINICAL HISTORY: evaluate pathology R05.9 COUGH TECHNIQUE: 2D digital imaging was performed of the chest. Two images were obtained. PA and lateral views were obtained. COMPARISON: CR XR CHEST 2V PA LATERAL from 07/21/2018 FINDINGS: MEDIASTINUM: Normal. HEART: Upper limits of normal in size. PULMONARY VASCULATURE: Normal. LUNGS: Clear. PLEURAL SPACE: No pleural effusion or pneumothorax. BONE:Within normal limits for the patient's age. OTHER FINDINGS:Normal. IMPRESSION: No acute pulmonary findings. DATA REPOSITORY: RADIATION DOSE DELIVERED:
== END ==
PROVIDERS: PCP Family Medicine; Visit Provider Nurse Practitioner Family
DX: R05.9 Cough, unspecified (principal)
CPT/HCPCS: 71046

== ENCOUNTER 2024-03-27 00:52 | Outpatient (CLI) | payer OTHER, SELFPAY ==
--- NOTE | 2024-03-27 06:30 | DI.CT_ITS ---
Exam(s) CT CHEST WO EXAM: CT CHEST WO CLINICAL HISTORY: Recheck aorta,ascending aorta dilatation,i77.810 TECHNIQUE: Imaging Protocol: Axial computed tomography images with coronal and sagittal reformatted images were created and reviewed. Computer aided detection (CAD) was utilized. CONTRAST MATERIAL: Intravenous: Omnipaque 350 Contrast volume:structured data ml. COMPARISON: CT CT THORAX CTA from 06/07/2023 FINDINGS: Pulmonary parenchyma: No consolidation. No dominant measurable mass. Tracheobronchial tree: No bronchiectasis or mucous plugging. Mediastinum and Jo Ann: No dominant adenopathy or fluid collection. Pleura: No effusion. No pneumothorax. Heart: The heart is moderately dilated. Severe coronary artery calcifications are seen. Heavy mitr al annular calcifications Aorta: Stable dilatation of the ascending aorta, 4.8 x 5.1 cm. Moderate atherosclerotic changes. Pulmonary arteries: No gross evidence of emboli. Upper abdomen: No acute findings. Large liver with hepatic steatosis. Bones: Degenerative changes in the spine. Soft tissues: Unremarkable. IMPRESSION: Stable dilatation of the ascending aorta, 5.1 x 4.8 cm. RADIATION DOSE DELIVERED: 325.63mGy.cm Total DLP DATA REPOSITORY: All CT scans at this facility are submitted to the National Radiology Data Registry (NRDR) Dose Index Registry (DIR) with the [employer] (ACR). RADIATION OPTIMIZATION: All CT scans at this facility use at least one of these dose optimization te chniques: automated exposure control; mA and/or kV adjustment per patient size (includes targeted exa ms where dose is matched to clinical indication); or iterative reconstruction.
--- NOTE | 2024-03-27 08:30 | DI.US_ITS ---
APPROVED REPORT EXAM: Comprehensive 2D, Doppler, and color-flow Echocardiogram Patient Location: Out-Patient Contact Finger Assembler: Haja Becerra RDCS (AE) Indications: Recheck thoracic aorta dilatation Conclusion Normal left ventricular wall thickness and chamber size. Ejection fraction is 55%. Wall motion is n ormal Normal right ventricular size and function Both atria are normal in size Aortic valve is sclerotic and trileaflet without stenosis. There is trace regurgitation Mitral annular calcification. Mild to moderate mitral regurgitation Estimated right ventricular systolic pressure is 32 mmHg Ascending aorta measures 4.62 cm Wall motion Left Ventricle The left ventricle is normal size. The left ventricular systolic function is normal. The left ventric ular ejection fraction is within the normal range. There is normal left ventricular wall thickness. T here is normal LV segmental wall motion. There is no ventricular septal defect visualized. LVEF is 55 %. Right Ventricle The right ventricle is normal size. The right ventricular systolic function is normal. Atria The left atrium size is normal. The right atrium size is normal. The interatrial septum is intact wit h no evidence for an atrial septal defect. Aortic Valve The Aortic valve is sclerotic. There is no aortic valvular stenosis. Trace aortic regurgitation. Mitral Valve Moderate mitral annular calcification. No evidence of mitral valve stenosis. Mild to moderate mitral regurgitation. Tricuspid Valve The tricuspid valve is normal in structure. There is no tricuspid valve stenosis. Mild tricuspid regu rgitation. The RVSP is 32.0 mmHg. Pulmonic Valve The pulmonary valve is normal in structure. There is no pulmonic valvular stenosis. Trace pulmonic re gurgitation. Great Vessels Aortic root is mildly dilated. The ascending aorta is moderately dilated. Aortic arch is not well vi sualized. IVC is normal in size and collapses >50% with inspiration. Pericardium There is no pericardial effusion. 2D Dimensions IVSD d PLAX 1.12 cm M: 0.6-1.2 Ao Root d 3.80 cm M: 3.1 - 3.7 LVPW d PLAX 1.12 cm M: 0.6 - 1.2 Ao Asc Diam d 4.62 cm M: 2.6 - 3.4 LVID d PLAX 4.47 cm M: 4.2 - 5.8 LVDs 3.17 cm M: 2.5 - 4.0 LV EF Teichholz 56.2 % FS 29.23 % LV EDV (Teich) 91.1 mL LV ESV (Teich) 39.9 mL Stroke Vol Index (Teich) 24.06 M-Mode TAPSE 2.23 cm (M/F) >1.7 Auto EF LV EDV A4C 127.2 mL LV EDV A2C 116.9 mL LV EDV BP 124.3 mL LV ESV A4C 60.6 mL LV ESV A2C 51.9 mL LV ESV BP 55.9 mL LVEF(%) A4C 52.4 % LVEF(%) A2C 55.6 % LVEF(%) BP 55.0 % LV SV A4C 66.6 ml LV SV A2C 64.9 ml LV SV BP 68.4 ml LV CO A4C 3.5 L/min LV CO A2C 3.2 L/min LV CO BP 3.4 L/min HR A4C 53.18 BPM HR A2C 48.78 BPM LV EDV Index (BP) LA Volume LA Length A4C 4.4 cm LA Length A2C LA Area A4C s 13.79 cm2 LA Area A2C s LA Vol A4C A-L 36.32 mL LA Vol A2C A-L LA Vol Biplane A-L LA Vol A4C MOD 33.8 mL LA Vol A2C MOD LA Vol BP MOD RA Volume RA Area A4C 11.6 cm2 RA ESV A4C (A-L) 24.8mL RA Vol/BSA A4C A-L RA Length A4C 4.6 cm RA ESV A4C (MOD) 25.3mL LV Diastology MV E' medial 0.090 (>0.07 m/s) MV E Vmax 1.36 (0.4-1.3 m/s) MV E/E' MED 15.17 (<14) MV A Vmax 1.25 (0.4-1.3 m/s) MV E' lateral 0.073 (>0.1 m/s) E/A Ratio 1.1 MV E/E' LAT 18.59 (<14) MV E' Average 0.081 m/s MV E/E'(average) 16.70 Aortic Valve AoV Vmax 1.81 m/s LVOT Vmax 1.23 m/s AoV Peak Grad 13.1 mmHg LVOT Peak Grad 6.0 mmHg AoV Area (Vmax) 2.76 cm2 LVOT VTI 0.225 m AoV VTI 0.372 m LVOT Mean Grad 3.1 mmHg AoV Mean David. 1.09 m/s LVOT SV 91.75 mL AoV Mean Grad 5.9 mmHg LVOT Diam s 2.25 cm AoV Area (VTI) 2.47 cm2 AV Regurg Peak Gr. 13.07 mmHg Velocity Ratio 0.68 Mitral Valve MV DT 197 (160-240 msec) MV Vmax TIPS 1.33 m/s MV Mean Grad 3.7 (<2mmHg) MV VTI 0.346 m Pulmonary Valve PV Vmax 1.10 (0.5-1.5 m/s) RVOT Vmax 0.72 m/s PV Peak Grad 4.9 mmHg RVOT Peak Gr. 2.1 mmHg PV Mean David 0.80 m/s RVOT VTI 0.161 m PV Mean Grad 2.9 mmHg RVOT Mean Gr. 1.1 mmHg Tricuspid Valve RA Pressure 3.00 mmHg TR Vmax 2.69 m/s TR Peak Grad 28.9 mmHg RVSP (TR) 32.0 mmHg
== END 2024-03-27 01:12 ==
LOC: DI 00:52
PROVIDERS: PCP Family Medicine; Visit Provider Internal Medicine Cardiovascular Disease
DX: I77.810 Thoracic aortic ectasia (principal)
CPT/HCPCS: 71250; 93306

== ENCOUNTER 2024-05-08 15:08 | Outpatient (CLI) | payer OTHER, SELFPAY ==
--- NOTE | 2024-05-08 13:35 | DI.RAD_ITS ---
Exam(s) XR SHOULDER RT COMPLETE 2+V EXAM: XR SHOULDER RT COMPLETE 2+V CLINICAL HISTORY: shoulder pain, right, fall,m25.511. TECHNIQUE: 2D digital imaging was performed. COMPARISON: CR XR SHOULDER LT COMPLETE 2+V from 09/19/2021 FINDINGS: Five views: No evidence of fracture or dislocation. There is a small thin calcific density in the subacromial space above the greater tuberosity region c onsistent with calcific rotator cuff tendinitis. There is mild diminution of the subacromial space. There are moderate degenerative changes in the acromioclavicular joint. Mild degenerative changes a re also noted in the glenohumeral joint. Bone density is normal. No significant osseous lesions shamir dent. IMPRESSION: Faint calcification in the soft tissues of the above the greater tuberosity consistent with calcific rotator cuff tendinitis. DATA REPOSITORY: RADIATION DOSE DELIVERED:
== END 2024-05-08 15:28 ==
LOC: DI 15:09
PROVIDERS: PCP Family Medicine; Visit Provider Physician Assistant
DX: M25.511 Pain in right shoulder (principal)
CPT/HCPCS: 73030

== ENCOUNTER 2024-06-02 01:20 | Outpatient (CLI) | payer OTHER, SELFPAY ==
--- NOTE | 2024-06-02 06:45 | DI.MRI_ITS ---
Exam(s) MR UPPER JOINT RT WO EXAM: MR UPPER JOINT RT WO CLINICAL HISTORY: fall; worsening rt shoulder pain,rt rotator cuff tear,m75.101. TECHNIQUE: Multiplanar multisequence MRI was performed. COMPARISON: MR MR UPPER JOINT RT WO from 12/11/2021 FINDINGS: The examination is limited due to patient motion artifact. BONES: There is no fracture or contusion pattern. JOINTS: There are marked degenerative changes seen at the acromioclavicular joint. There is an impin gement on the underlying supraspinatus muscle. There also degenerative changes seen at the glenohume ral joint with loss of the articular cartilage. TENDONS: Supraspinatus: There is tendinosis of the supraspinatus tendon. There is hyperintense signal seen wi thin the tendon near its insertion site consistent with a tear. This appears to be a full-thickness tear. Infraspinatus: Unremarkable. Subscapularis: There is tendinosis of the subscapularis tendon. There is also hyperintense signal an d thinning of the tendon along its articular surface suspicious for partial tear. Teres Minor: Unremarkable. Biceps and Headrick: Unremarkable. MUSCLES: Unremarkable. GLENOID LABRUM: There is heterogeneity of the posterior labrum consistent with degeneration and/or te ar. SOFT TISSUES: Unremarkable. LIGAMENTS: Unremarkable. OTHER: There is mild increased signal/fluid in the subacromial subdeltoid bursa. IMPRESSION: 1. Small full-thickness tear of the supraspinatus tendon near its insertion site anteriorly. 2. Tendinosis of the subscapularis tendon. There is thinning and hyperintense signal seen along the articular surface of the subscapularis tendon suspicious for partial tear. 3. Heterogeneity of the posterior superior labrum consistent with degeneration and/or tear. 4. Marked degenerative changes seen at the acromioclavicular joint with impingement on the superior a spect of the supraspinatus muscle. DATA REPOSITORY:
== END 2024-06-02 01:40 ==
LOC: DI 01:20
PROVIDERS: PCP Family Medicine; Visit Provider Family Medicine
DX: M75.121 Complete rotator cuff tear or rupture of right shoulder, not specified as traumatic (principal)
CPT/HCPCS: 73221

== ENCOUNTER 2024-06-03 04:17 | Outpatient (CLI) | payer OTHER, SELFPAY ==
[2024-06-03 12:28] LABS: Calculated LDL 114 mg/dL (<100); Cholesterol 194 mg/dL (<200); HDL Cholesterol 36 mg/dL (40-60); Triglyceride 221 mg/dL (<150)
== END 2024-06-03 04:18 | disposition home or self-care (01) ==
LOC: LOS 04:17
PROVIDERS: PCP Family Medicine; Visit Provider Family Medicine
DX: E78.5 Hyperlipidemia, unspecified (principal); R73.9 Hyperglycemia, unspecified; M75.101 Unspecified rotator cuff tear or rupture of right shoulder, not specified as traumatic; S43.431A Superior glenoid labrum lesion of right shoulder, initial encounter; M25.811 Other specified joint disorders, right shoulder; M19.011 Primary osteoarthritis, right shoulder
CPT/HCPCS: 36415; 80061; 83036

== ENCOUNTER 2024-06-11 10:19 | Day surgery (SDC) | payer OTHER, SELFPAY ==
[2024-06-11] VITALS (26 sets, daily range): BP systolic 124–168; BP diastolic 71–92; PULSE 48–72; RESP 14–22; TEMP 36.2–36.6; O2SAT 90–98; BMI 34.9
--- NOTE | 2024-06-11 07:13 | W.PM.DSUDISC ---
Date of service: 06/11/24 Discharge Plan Disposition Patient Disposition: Home Condition: Stable Discharge Details Attending Provider: Car Wheeler Primary Care Provider: Shai Mcdaniel Home Meds and New Rx's Prescriptions: New naproxen 250 mg tablet 250 - 500 mg PO BID PRN (Reason: Moderate pain) Qty: 40 0RF oxycodone 5 mg tablet 5 - 10 mg PO Q4H PRN (Reason: Moderate to severe pain) Qty: 18 0RF Continued gabapentin 300 mg capsule 300 mg PO QHS PRN (Reason: shoulder pain) Qty: 30 0RF buspirone 15 mg tablet 15 mg PO BID PRN (Reason: anxiety) Qty: 60 2RF aspirin [Adult Aspirin Regimen] 81 mg tablet,delayed release (DR/EC) 81 mg PO DAILY Qty: 90 8RF tamsulosin 0.4 mg capsule 0.8 mg PO DAILY Qty: 180 3RF Rx Instructions: dose increase 09/23/20 trazodone 100 mg tablet 100 mg PO QHS Qty: 90 3RF metoprolol succinate 50 mg tablet extended release 24 hr 50 mg PO DAILY Qty: 90 3RF multivitamin [Once Daily] 1 EACH tablet 1 ea PO DAILY pantoprazole [Protonix] 40 mg tablet,delayed release (DR/EC) 40 mg PO DAILY Qty: 90 3RF amlodipine-benazepril [Lotrel] 10-40 mg capsule 1 cap PO DAILY Qty: 90 4RF gemfibrozil [Lopid] 600 mg tablet 600 mg PO DAILY Qty: 90 3RF ibuprofen 800 mg tablet 800 mg PO TID PRN (Reason: pain (scale score 1-3)) Qty: 180 1RF lorazepam 1 mg tablet 1 mg PO DAILY PRN (Reason: clautrophobia) Qty: 2 0RF Rx Instructions: take 1 1 hr before MRI, may repeat acetaminophen 500 mg tablet 1,000 mg PO TID Qty: 90 3RF Discharge Instructions Additional Instructions: Surgery: Right shoulder arthroscopy with rotator cuff repair (large supraspinatus & subscapularis), biceps tenodesis, extensive debridement, and subacromial decompression. Activity: For 6 weeks, you should keep your arm at your side in a neutral position at all times except for physical therapy. Do not try to lift or raise your arm using your own muscles. You should use the sling whenever you are out of the house. At home it is best to remove the sling and rest the arm on a pillow at your side or support the operative side with your other hand. You may allow the arm to dangle at your side. A physical therapy prescription will be sent electronically to begin in about 3 weeks. CONSERVATIVE protocol. Prescriptions: Naproxen 250 mg take 1-2 every 12 hours with a meal as needed for moderate pain Oxycodone 5 mg take 1-2 every 4-6 hours as needed for severe pain You may use [id number] Tylenol (acetaminophen) as needed for mild pain. These pain medications may be taken all at once or in different combinations as needed. Also, recommend Colace (docusate) as a stool softener as surgery and pain medicine cause constipation. You may try yfpe-oau-drspoda diphenhydramine (Benadryl) 25-50 mg nightly as a sleep aid Dressings: Remove shoulder bandage after 3 days. Leave the sticky Steri-Strips in place until they fall off or remove them after you shower. Cover the incisions with Band-Aids or leave them open to air. You may shower after 5 days. Follow-up: 10-[address] Wheeler You may take off the leg compression stockings this evening at home. You may also leave them on a few days longer if you have a history of leg swelling or edema. Let us know right away if you develop any redness, drainage, fevers, chest pain, or trouble breathing. Do not drink alcohol or drive for at least 24 hours after anesthesia. Please call the office during business hours with any questions or concerns. Discharge Orders Discharge Orders: Discharge Order (Routine); Ordered 06/11/24 Ordered By: Juan Angel DS: Diagnosis Discharge Diagnosis (1) Superior labrum xbiigald-am-notyljnxn (SLAP) tear of right shoulder: Status: Acute (2) Impingement of right shoulder: Status: Acute (3) Rotator cuff tear, right: Status: Acute
--- NOTE | 2024-06-11 07:17 | ROE_ITS ---
Operative Note Operative Note PRE-OP DIAGNOSIS: Right: 1. Rotator cuff tear 2. SLAP tear 3. Bursitis POST-OP DIAGNOSIS: same PROCEDURE: Right: 1. Rotator cuff repair, CPT# 91598. This involved repair of the subscapularis and supraspinatus using anchors and sutures to reattach the rotator cuff back to the footprint of the lesser and greater tuberosity. 2. Arthroscopic biceps tenodesis, CPT# 25825. This involved arthroscopically suturing and reattaching the long head of the biceps tendon to the proximal humerus at the superior margin of the bicipital groove with a screw at the correct tension. 3. Extensive debridement, CPT# 26113. This involved using arthroscopic hand instruments, power instruments, and radiofrequency instruments to release the long head of the biceps tendon and debride areas of labral tearing, synovitis, capsulitis, and chondromalacia about the biceps groove within the glenohumeral joint anteriorly, superiorly and posteriorly. 4. Subacromial decompression with partial acromioplasty, CPT# 09645. This involved using arthroscopic power instruments and a radiofrequency wand to complete a bursectomy and smooth the undersurface of the acromion. The faculty i on call medical assistant was medically required in order to help assist in techniques above, which require positioning the arm, holding the arthroscope, and manipulating multiple instruments and sutures at the same time. This cannot be done without the help of an experienced faculty i on call medical assistant. SURGEON: Car Wheeler [employer]: Juan Angel ANESTHESIA TYPE: Local By Surgeon, General LMA/ETT and Primary Nerve Block Refer to Anesthesia Record ESTIMATED BLOOD LOSS: 10 PATHOLOGY: none sent COMPLICATIONS: None Patient was transported to: PACU Patient's condition: stable Implants: Arthrex: 4.75mm SwiveLocks x 3 Indications: The patient was diagnosed with the above conditions and appropriately indicated for surgical intervention. Please see complete medical record for details. Findings: Exam under anesthesia: Full range of motion, no instability Glenohumeral joint: Moderate glenohumeral degenerative changes chondromalacia davis labral tearing, SLAP tear, intact biceps. Obvious large upper subscapularis disruption with torn degenerated frayed edges. Disrupted [facility]. Disrupted biceps sling. Full-thickness supraspinatus rotator cuff tear. Subacromial space: Moderate bursitis. Full-thickness large supraspinatus rotator cuff tear from the biceps groove all the way posterior to the junction with the infraspinatus. Medial tear pattern with significant tuberosity lateral remnant. Thickened and degenerative tendon. Procedure Description: In the operating room, general anesthesia was induced. Bilateral shoulders were examined. The patient was positioned in the beachchair position. All bony prominences were well-padded. Preoperative antibiotics were administered. The shoulder was prepped and draped in the usual sterile fashion. The correct patient, procedure, and side of the procedure were all verified prior to incision. Starting through the posterior portal a standard complete diagnostic arthroscopy was performed of the glenohumeral joint including inspection of the long head of the biceps, anterior and superior labrum, subscapularis tendon, supraspinatus and infraspinatus tendons, and axillary recess. The glenoid and humeral head cartilage as well as the posterior labrum were inspected from an anterior viewing portal. Significant findings and interventions noted above. Given the full-thickness tearing from the upper portion of the subscapularis through the biceps groove and into the supraspinatus cannulas were inserted anteriorly anterior superior laterally and the subacromial space was opened prior to returning to the joint to best plan and prepare for repair of the multiple structures. Starting through the posterior portal, the arthroscope was directed into the subacromial space. A lateral 50 yard line lateral portal was created. A combination of power instruments and a radiofrequency ablator were used to debride bursitis anteriorly, posteriorly, and laterally as well as expose and smooth bone spurring on the undersurface of the acromion. The coracoacromial ligament was partially released. The bursectomy was completed viewing laterally and working from posteriorly and the rotator cuff was thoroughly inspected with findings noted above. There was significant lateral tendon remnant which was removed with a shaver and ablator. The greater tuberosity footprint was largely exposed from the biceps which was still intact in its groove through all the way posterior to the infraspinatus junction. The tuberosity was abraded lightly to optimize bone tendon healing and the footprint was medialized slightly given the lack of tendon length. The tear ended up shaped like a thickened degenerative crescent tear with limited excursion given the removed lateral segment. The power pick was used to thoroughly microfracture and again optimize bone tendon healing at the medialized footprint through the central footprint leaving the lateral bone intact for suture anchor fixation. The tendon edge was lightly debrided to best prepare quality for suture and repair. The arthroscope was directed back into the glenohumeral joint. The subscapularis free edges and biceps sling and [facility] L, which were all disrupted and a rather chronic degenerative appearance were all debrided and largely resected. The remaining portion subscapularis appeared healthy and viable. It mobilized in a limited fashion so the scorpion was used to place a suture tape FiberLink in cinch mode in the upper lateral portion which would allow for l imited reduction and repair but overall reasonable appearance of contour and good tension on the remaining structure. An all-arthroscopic suprapectoral biceps tenodesis was performed through an an terior portal using a Loop N Tack method with a SutureTape FiberLink cinched around and through the tendon. The biceps was tenotomized from the labrum. The biceps was brought down the arm to the appropriate level superior aspect of the bicipital groove and the combined location for subscapularis repair and biceps tenodesis was prepared with the undersized punch. The repair sutures for the subscapularis and biceps were loaded on a self punching knotless 4.75 mm SwiveLock anchor which was deployed with good fixation strength and reduction on the rotator cuff and security on the biceps tenodesis. The end of the biceps was mushroom ablated. The knotless repair suture was confirmed to slide shuttled through the biceps tendon for added fixation, but did not then slide back through the anchor eyelet mechanism and was removed. The subscapularis was then checked more in the mid body substance for any additional repair needed, but did have good repair appearance and contour. Back in the subacromial space the large supraspinatus tear was again inspected. The additional releases anteriorly by the biceps subscapularis allowed for reasonable excursion without undue tension over at least 50% of the prepared footprint. Starting anteriorly inverted horizontal mattress FiberTape was placed with a ripstop central suture tape FiberLink in cinch mode. These repair sutures were then secured to an anterior lateral footprint 4.7 by my SwiveLock anchor. This repair configuration was repeated with another tape and link incorporating the posterior portion of the tear and secured to another anchor at the posterior lateral footprint. There was good reduction and fixation strength of the available rotator cuff, which was stable through her arm motion and testing.. The shoulder was drained of arthroscopic fluid. All portal sites were copiously irrigated. These incisions were closed using 3-0 Monocryl in a buried fashion and then covered with Mastisol, Steri-Strips, Xeroform, dry gauze, and ABDs. The dressings were covered and secured with Medipore tape. The operative extremity was placed into a sling for immobilization. The patient awoke from anesthesia without complication and was transferred to the recovery room in a stable condition. Date of Procedure: 06/11/24
[2024-06-11] MEDS: Lactated Ringers 1,000 ML 30 ML IV (10:55)
--- NOTE | 2024-06-11 11:29 | W.ANESPRE ---
General Info Date of Service Date Performed: 06/11/24 Height: 5 ft 7 in Weight: 101.1 kg Body Mass Index (BMI): 34.9 Surgical Procedure: Operation Date: 06/11/24 12:25 Proposed Procedure Side Surgeon p Shoulder Rotator Cuff Arthroscopic w/Extensive Debridement, Biceps Tenodesis, Subacromial Decompression Right Car Wheeler MD Meds Allergies and Home Medications Allergies Allergy/AdvReac Type Severity Reaction Status Date / Time No Known Allergies Allergy Verified 06/11/24 10:32 Home Medication ?Medication ?Instructions ?Recorded multivitamin (Once Daily tablet) 1 ea PO DAILY 10/21/12 acetaminophen 500 mg tablet 1,000 mg (2 x 500 mg) PO TID #90 03/21/22 tabs aspirin 81 mg tablet,delayed 81 mg PO DAILY #90 tabs 09/23/23 release (Adult Aspirin Regimen) pantoprazole 40 mg tablet,delayed 40 mg PO DAILY #90 tab-caps 10/23/23 release (Protonix) amlodipine 10 mg-benazepril 40 mg 1 cap PO DAILY #90 tab-caps 12/18/23 capsule (Lotrel) gemfibrozil 600 mg tablet (Lopid) 600 mg PO DAILY #90 tab-caps 01/23/24 ibuprofen 800 mg tablet 800 mg PO TID PRN pain (scale 02/26/24 score 1-3) #180 tabs metoprolol succinate 50 mg 50 mg PO DAILY #90 tabs 03/03/24 tablet,extended release 24 hr tamsulosin 0.4 mg capsule 0.8 mg (2 x 0.4 mg) PO DAILY #180 03/03/24 caps trazodone 100 mg tablet 100 mg PO QHS #90 tabs 03/03/24 buspirone 15 mg tablet 15 mg PO BID PRN anxiety #60 tabs 05/28/24 gabapentin 300 mg capsule 300 mg PO QHS PRN shoulder pain 05/28/24 #30 caps lorazepam 1 mg tablet 1 mg PO DAILY PRN clautrophobia #2 06/01/24 tabs Current Visit Medications: Current Medications Generic Name Dose Route Start Last Admin Trade Name Freq PRN Reason Stop Dose Admin Droperidol 0.625 mg 06/11/24 09:41 Droperidol 2.5 Mg/Ml Vial IVP 07/11/24 09:40 DIRECTED PRN Ephedrine Sulfate 0 mg 06/11/24 09:41 Ephedrine 25 Mg/5 Ml Syringe IVP 07/11/24 09:40 DIRECTED PRN Fentanyl 0 mcg 06/11/24 09:41 Fentanyl 100 Mcg/2 Ml Vial IVP 07/11/24 09:40 DIRECTED PRN Hydromorphone HCl 0 mg 06/11/24 09:41 Hydromorphone 1 Mg/Ml Syr IVP 07/11/24 09:40 DIRECTED PRN Ringer's Solution 1,000 mls @ 30 mls/hr 06/11/24 06:00 06/11/24 10:55 IV 06/11/24 23:59 30 mls/hr INFUSION MARIANA Administration Cefazolin Sodium/Dextrose 2 gm in 50 mls @ 100 mls/hr 06/11/24 06:00 Ancef Duplex IVPB 06/11/24 23:59 PREOP MARIANA Tranexamic Acid/Sodium Chloride 1,000 mg in 100 mls @ 600 mls/hr 06/11/24 06:00 IVPB 06/11/24 23:59 PREOP MARIANA IV Miscellaneous Supplies 1 each 06/11/24 06:00 Iv Access IV 06/11/24 23:59 DIRECTED MARIANA Naloxone HCl 0 mg 06/11/24 09:41 Naloxone 0.4 Mg/Ml Vial IVP 07/11/24 09:40 PRN PRN Oxycodone HCl 0 mg 06/11/24 07:12 Oxycodone 5 Mg Tab PO 07/11/24 07:11 Q3H PRN PRN Pain Sodium Chloride 0 ml 06/11/24 06:00 Normal Saline Flush 10 Ml Syr IV 06/11/24 23:59 PRN PRN Sodium Chloride 0 ml 06/11/24 06:00 Normal Saline 10 Ml Vial IJ 06/11/24 23:59 DIRECTED PRN Sterile Water 0 ml 06/11/24 06:00 Water,Injection,Sterile 10 Ml Vial IJ 06/11/24 23:59 DIRECTED PRN PFSH Active Problems Active Problems: Problem Status Onset Code Impingement of right shoulder Acute M25.811 Arthritis of right glenohumeral joint Acute M19.011 Superior labrum [id number] (SLAP) tear of right shoulder Acute S43.431A ASCVD (arteriosclerotic cardiovascular disease) Acute I25.10 Foamy urine Acute R82.998 Ventricular ectopy Acute I49.3 Fatigue due to treatment Acute R53.83 Ascending aorta dilatation Acute I77.810 Throat fullness Acute R09.89 Pre-syncope Acute R55 Sensorineural hearing loss Acute H90.5 Arthrosis Acute M19.90 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 Hypertension Chronic I10 Dyslipidemia Chronic E78.5 GERD (gastroesophageal reflux disease) Chronic K21.9 Hypercholesterolemia Chronic 0604/08 E78.00 Osteoarthritis of both knees Chronic M17.0 History of total bilateral knee replacement (TKR) Chronic Z96.653 Lumbosacral spondylosis without myelopathy Acute M47.817 History of spinal surgery Acute Z98.890 History of bursectomy Acute Z98.890 History of arthroscopy of knee Acute Z98.890 Alcohol abuse Acute F10.10 Elevated liver enzymes Acute R74.8 BPH w urinary obs/LUTS Acute N40.1, N13.8 Pain of right thumb Acute M79.644 Elbow pain, right Acute M25.521 Right shoulder pain Acute M25.511 Arthritis of carpometacarpal joint Acute M19.049 Right rotator cuff tendinitis Acute M75.81 Tendinitis of long head of biceps brachii of right shoulder Acute M75.21 Depression Chronic F32.9 Bursitis of right shoulder Acute M75.51 Salivary gland stone Acute K11.5 Back pain Acute M54.9 Bursitis of left shoulder Acute M75.52 Arthritis of left acromioclavicular joint Acute M19.012 Traumatic tear of left rotator cuff Acute S46.012A Rotator cuff tear, right Acute 1212/24 M75.101 Anxiety disorder Acute F41.9 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 BRAGA; B/L History of arthroscopy of both knees NEGATIVE STRESS TEST 04/03/17 11/21/21 Excision, Olecranon Bursa (~08/2009) Colonoscopy - MAC 05/14/14 BACK SURGERY (~04/2013) Tobacco Smoking/Tobacco Use Status: Never Passive smoking exposure: Yes Second hand exposure: Yes Alcohol Alcohol Intake: current Alcohol intake frequency: a few times a week Alcohol type: beer Substance Use Substance use: Never Substance use type: does not use Vital Signs and Lab Results Vital Signs Most Recent Vital Signs in EMR: Most Recent Vital Signs Temp Pulse Resp BP Pulse Ox 36.4 C L 68 18 167/88 H 97 06/11/24 10:40 06/11/24 10:40 06/11/24 10:40 06/11/24 10:40 06/11/24 10:40 Lab Results Blood Type / Crossmatch: No Data to Display Complete Blood Count: No Data to Display Complete Metabolic Panel: Hemoglobin A1c 6.0 % (<5.7) H 06/03/24 08:40 Liver Function Panel: No Data to Display Coagulation Panel: No Data to Display Cardiac Panel: No Data to Display Arterial Blood Gas: No Data to Display Venous Blood Gas: No Data to Display Pancreas Panel: No Data to Display Thyroid Panel: No Data to Display Infectious Disease: No Data to Display Blood Cultures: No Data to Display Toxicology Panel: No Data to Display Imaging and Studies Imaging and Studies Study information below may be from another EMR and interpreted by another provider. Please see original notes in EMR for more complete details. EKG Summary: 11/26/2017: Summary: 1. Left ventricle: The cavity size was below normal. Wall thickness was increased in a pattern of moderate LVH. Systolic function was hyperdynamic. The estimated ejection fraction was 65-70%. There was no significant dynamic obstruction at rest. Patient unable to perform Valsalva. Wall motion was normal; there were no regional wall motion abnormalities. Findings consistent with diastolic dysfunction. 2. Aortic valve: Trileaflet. Sclerosis without stenosis. 3. Aortic root: The aortic root was mildly dilated. 3.8 cm. 4. Ascending aorta: The ascending aorta was moderately dilated. 4.6 cm. 5. Left atrium: The atrium was mildly dilated. 6. Right ventricle: The cavity size was normal. Wall thickness was normal. Systolic function was normal. Stress Test Summary: 10/2021: 9.19 METS, 78% max HR, nondiagnostic EKG portion, MPI with normal perfusion and no evidence of ischemia. LVEF 57%. Stress ECG Conclusion 1. Resting electrocardiogram was within normal limits 2. Patient underwent exercise testing using a combination of treadmill and pharmacologic stress with regadenoson 3. Normal blood pressure response to exercise. Blunted heart rate response, the patient achieved 78% of predicted heart rate for age 4. The electrocardiographic portion of the test was nondiagnostic due to inadequate heart rate 5. Atrial premature beats were noted 6. See MPI report MPI Conclusion Normal myocardial perfusion without evidence of ischemia or prior infarction EF is 57%. Wall motion is normal Echocardiogram Summary: 2018: LVEF 65-70%, ascending aorta 4.6 cm. Carotid Artery Summary:: 2018: no sig internal carotid stenosis. Anesthesia Assessment and Plan Anesthesia History Personal History: No History of Anesthesia Complications Family History: No Family History of Anesthesia Complications Exercise Tolerance Exercise Tolerance: Metabolic Equivalents>4 Pertinent Negatives Pertinent Negatives: No Symptoms of GERD Cardiac & Pulmonary Exam Cardiac Exam: Normal S1/S2 Heart Sounds Pulmonary Exam: Clear Bilateral Breath Sounds Implantable Cardiac Device Does patient have a Pacemaker or an ICD?: No Airway Exam Known Difficult Airway: No Mallampati Class: 2 Mouth Opening: Normal (> 3cm) Thyromental Distance: Greater than 3 cm Neck Range of Motion: Full ROM Neck Circumference: Normal Teeth Condition: Normal Dentition ASA Classification ASA Score: ASA 2 Emergency Case?: No NPO Status NPO Status: NPO Clears >2 hours, Solids >8 hours Anesthesia Plan Resuscitation Status: Full Code Anesthesia Technique: General Anesthesia Airway Planned: Endotracheal Tube Pain Management: Surgeon and patient request nerve block Monitors Used: Standard Monitors
[2024-06-11] MEDS: ceFAZolin 2 GM/50 ML BAG IVPB (12:35)
[2024-06-11] MEDS: TRANEXAMIC ACID/SOD. CHL. 1,000 MG/100 ML BAG 600 MG IVPB (12:50)
[2024-06-11] MEDS: Bupivacaine 0.25% Pres-Free W/EPI 30 ML VIAL (13:16)
--- NOTE | 2024-06-11 13:39 | ANES.NERVE_ITS ---
Nerve Block Single Injection Procedure Date and Time Date Performed: 06/11/24 Procedure Start: 12:02 Location Where Procedure Performed Procedure Location: Day Surgery Unit Reason Performed: Postoperative Analgesia Requesting Provider: Car Wheeler Timeout Performed Timeout Performed: Yes Monitoring Used ECG, Blood Pressure, SpO2 and See EMR for corresponding vital signs Sterility Sterility: Hand Hygiene, Surgical Cap, Surgical Mask, Sterile Gloves, Eye Protection and Chlorhexidine Sedation Given During Procedure Sedation Given (Indicate Dose Given): Versed IV Dose:: 3mg IVP Patient Mental Status Patient Mental Status: Sedate with meaningful communication Nerve Block 1st Nerve Block: Laterality: Right Block Type: Interscalene Ultrasound Image Saved?: Yes Needle / Catheter Used: 80mm SonoPlex II Local Anesthetic Bolus (Indicate Dose Given): Lidocaine used for local infiltration of skin, Bupivacaine 0.5% Dose:: 0.5%/10cc (50mcg) and Exparel Dose:: 1.33%/10cc (133mg) Additives (Indicate Dose Given): Epinephrine to make 1:400,000 (2.5mcg/ml) Dose:: 50mcg and Decadron Dose:: 10mg PF Ultrasound: Sterile probe cover and gel used Nerve Stimulator: Supplement to Ultrasound use Paresthesia: None Procedure Tolerated: No Complications and Patient tolerated well Procedure Outcome: Successful Procedure Comment: Required Multiple BAD WORK GATHERER providers to both identify and target plexus. Complex anatomical variation that was difficult to identify between interscalene muscles. Performed By: Orlando Amor Other (not listed above): Jeremiah Benitez
--- NOTE | 2024-06-11 15:43 | W.ANESPOSTOP ---
Postoperative Evaluation Date, Time and Location Date Performed: 06/11/24 Time Performed: 15:43 Patient Location: Day Surgery Unit Vital Signs Most Recent Imported Vital Signs: Most Recent Vital Signs Temp Pulse Resp BP Pulse Ox 36.4 C L 57 L 18 139/90 95 06/11/24 15:37 06/11/24 15:35 06/11/24 15:36 06/11/24 15:35 06/11/24 15:36 Pain Score Most Recent Pain Score: Most Recent Pain Score Pain Level 0 06/11/24 15:37 Assessment Mental Status: Awake (Alert & Oriented to Patient Baseline) Airway and Respiratory Function: Patent airway with normal (patient baseline) respiratory exam Cardiovascular Function: Hemodynamically Stable Hydration Status: Adequately Hydrated Nausea & Vomiting: No Nausea or Vomiting Pain: Pt. Denies Any Pain Peripheral Nerve Block: Regional nerve block not resolved at time of post operative discharge
== END 2024-06-11 16:47 | disposition home or self-care (01) ==
LOC: SUR 10:19
PROVIDERS: PCP Family Medicine; Visit Provider Student in an Organized Health Care Education/Training Program
PROC: (CPT 29827; principal; 2024-06-11 12:15)
DX: S43.431A Superior glenoid labrum lesion of right shoulder, initial encounter (principal); X58.XXXA Exposure to other specified factors, initial encounter; M75.51 Bursitis of right shoulder; M75.121 Complete rotator cuff tear or rupture of right shoulder, not specified as traumatic; G89.18 Other acute postprocedural pain
CPT/HCPCS: 29827; 29828; 29823; 29826; 64415; J0131; J0171; J0665; J0666; J0690; J1100; J1885; J2250; J2371; J2405; J2704

== ENCOUNTER 2024-09-19 11:19 | Emergency (ER) | payer OTHER, SELFPAY ==
[2024-09-19 11:26] VITALS: BP 134/89; PULSE 88; RESP 16; TEMP 36.8; O2SAT 98
[2024-09-19] MEDS: Lidocaine/Epinephri/Tetracaine Topical Gel 3 ML TP (11:40)
[2024-09-19] MEDS: Diph,Pertuss(Acell),Tet Vac/Pf 0.5 ML SYR IM (11:48)
--- NOTE | 2024-09-19 12:14 | ED.GENADUL_ITS ---
Discharge Plan Disposition Patient Disposition: Home Condition: Stable Discharge Details Clinical Impression: Laceration of scalp Primary Care Provider: Shai Mcdaniel ED Provider: Ivonne Bean Meds and New Rx's Prescriptions: New cephalexin 500 mg tablet 500 mg PO BID 7 Days Qty: 14 0RF No Action buspirone 15 mg tablet 15 mg PO BID PRN (Reason: anxiety) Qty: 60 2RF aspirin [Adult Aspirin Regimen] 81 mg tablet,delayed release (DR/EC) 81 mg PO DAILY Qty: 90 8RF tamsulosin 0.4 mg capsule 0.8 mg PO DAILY Qty: 180 3RF Rx Instructions: dose increase 09/23/20 trazodone 100 mg tablet 100 mg PO QHS Qty: 90 3RF metoprolol succinate 50 mg tablet extended release 24 hr 50 mg PO DAILY Qty: 90 3RF multivitamin [Once Daily] 1 EACH tablet 1 ea PO DAILY pantoprazole [Protonix] 40 mg tablet,delayed release (DR/EC) 40 mg PO DAILY Qty: 90 3RF amlodipine-benazepril [Lotrel] 10-40 mg capsule 1 cap PO DAILY Qty: 90 4RF gemfibrozil [Lopid] 600 mg tablet 600 mg PO DAILY Qty: 90 3RF lorazepam 1 mg tablet 1 mg PO DAILY PRN (Reason: clautrophobia) Qty: 2 0RF Rx Instructions: take 1 1 hr before MRI, may repeat ibuprofen 800 mg tablet 800 mg PO TID PRN (Reason: pain (scale score 1-3)) Qty: 180 1RF tirzepatide (weight loss) 5 mg/0.5 mL pen injector 5 mg subcut QWEEK Qty: 2 10RF Rx Instructions: for 4 weeks acetaminophen 500 mg tablet 1,000 mg PO TID Qty: 90 3RF Discharge Instructions Instructions: Laceration Repair With Glue ED Additional Instructions: Laceration was cleaned and it was noted to be fairly contaminated with debris. This was removed best my ability. It was repaired with glue. This will start to slough off on its own in approximately 4 to 6 days. Do not scrub or pick at the laceration. Watch for signs of infection including increased redness, red streaks drainage or swelling. Please start the antibiotics if it and still look infected. Keep clean and dry for the next 12 to 24 hours after that you may wash under running soap and water in the shower as normal. No soaking or swimming. Please take Tylenol or Ibuprofen with food every 4-6 hours as needed for pain and swelling. Please watch for signs of head injury including confusion, vomiting, blurry vision or concerns. Follow up with primary care provider in 3-5 days. Return to ED sooner if any worsening or concerns. Thank you for allowing us to care for you today. Referrals: Shai Mcdaniel MD [Primary Care Provider] - 5 days Discharge Data Discharge Date/Time-TO BE ENTERED AT DEPARTURE: 09/19/24 12:56 HPI General Mode of arrival: ambulatory . Date/Time Provider Initiated Documentation: 09/19/24 11:34 . Limitations to Documentation: no limitations . Information obtained by: patient, RN notes reviewed and old records reviewed . HPI Narrative: 69-year-old male presents to the ER with a chief complaint of head scalp laceration which occurred prior to arrival. Patient was walking up a bank out in his yard and stood up into a tree branch. He has a proximately 3 cm laceration noted to the top of his scalp. Bleeding controlled. Laceration is well-approximated. He is requesting Dermabond. I did mention erika however tissue adhesive may be sufficient. He was given a tetanus vaccination upon arrival. He denies any loss of consciousness did not fall no neck pain no blurry vision. Related Data Home Medications ?Medication ?Instructions ?Recorded ?Confirmed multivitamin (Once Daily tablet) 1 ea PO DAILY 10/21/12 09/19/24 acetaminophen 500 mg tablet 1,000 mg (2 x 500 mg) PO TID #90 03/21/22 09/19/24 tabs aspirin 81 mg tablet,delayed 81 mg PO DAILY #90 tabs 09/23/23 09/19/24 release (Adult Aspirin Regimen) pantoprazole 40 mg tablet,delayed 40 mg PO DAILY #90 tab-caps 10/23/23 09/19/24 release (Protonix) amlodipine 10 mg-benazepril 40 mg 1 cap PO DAILY #90 tab-caps 12/18/23 09/19/24 capsule (Lotrel) gemfibrozil 600 mg tablet (Lopid) 600 mg PO DAILY #90 tab-caps 01/23/24 09/19/24 metoprolol succinate 50 mg 50 mg PO DAILY #90 tabs 03/03/24 09/19/24 tablet,extended release 24 hr tamsulosin 0.4 mg capsule 0.8 mg (2 x 0.4 mg) PO DAILY #180 03/03/24 09/19/24 caps trazodone 100 mg tablet 100 mg PO QHS #90 tabs 03/03/24 09/19/24 buspirone 15 mg tablet 15 mg PO BID PRN anxiety #60 tabs 05/28/24 09/19/24 lorazepam 1 mg tablet 1 mg PO DAILY PRN clautrophobia #2 06/01/24 09/19/24 tabs ibuprofen 800 mg tablet 800 mg PO TID PRN pain (scale 07/21/24 09/19/24 score 1-3) #180 tabs tirzepatide (weight loss) 5 mg/0.5 5 mg (0.5 mL) subcut QWEEK #2 mL 07/22/24 09/19/24 mL subcutaneous pen injector cephalexin 500 mg tablet 500 mg PO BID 7 days #14 tabs 09/19/24 Previous Rx's ?Medication ?Instructions ?Recorded acetaminophen 500 mg tablet 1,000 mg (2 x 500 mg) PO TID #90 03/21/22 tabs aspirin 81 mg tablet,delayed 81 mg PO DAILY #90 tabs 09/23/23 release (Adult Aspirin Regimen) pantoprazole 40 mg tablet,delayed 40 mg PO DAILY #90 tab-caps 10/23/23 release (Protonix) amlodipine 10 mg-benazepril 40 mg 1 cap PO DAILY #90 tab-caps 12/18/23 capsule (Lotrel) gemfibrozil 600 mg tablet (Lopid) 600 mg PO DAILY #90 tab-caps 01/23/24 metoprolol succinate 50 mg 50 mg PO DAILY #90 tabs 03/03/24 tablet,extended release 24 hr tamsulosin 0.4 mg capsule 0.8 mg (2 x 0.4 mg) PO DAILY #180 03/03/24 caps trazodone 100 mg tablet 100 mg PO QHS #90 tabs 03/03/24 buspirone 15 mg tablet 15 mg PO BID PRN anxiety #60 tabs 05/28/24 lorazepam 1 mg tablet 1 mg PO DAILY PRN clautrophobia #2 06/01/24 tabs ibuprofen 800 mg tablet 800 mg PO TID PRN pain (scale 07/21/24 score 1-3) #180 tabs tirzepatide (weight loss) 5 mg/0.5 5 mg (0.5 mL) subcut QWEEK #2 mL 07/22/24 mL subcutaneous pen injector cephalexin 500 mg tablet 500 mg PO BID 7 days #14 tabs 09/19/24 Allergies Allergy/AdvReac Type Severity Reaction Status Date / Time No Known Allergies Allergy Verified 09/19/24 11:29 General Stated Complaint: Laceration TERA: 4 Exam [facility] Head images: 2 1. 3 cm laceration bleeding controlled. Eyes General: appearance normal, both eyes and all related structures Alignment and Position: alignment normal Periorbital: periorbital findings normal Eyelids: eyelids normal Sclera: sclerae normal Cornea: corneas normal Pupils: PERRL EOM: EOM intact bilaterally Neuro General: patient alert, patient awake, patient oriented x3, gait normal, tone normal and moves all extremities Cranial Nerves: CN's II-XI intact bilaterally Cognition: normal cognition Speech: speech normal Gait: normal gait Course Vital Signs Vital signs: Vital Signs Temperature 36.8 C 09/19/24 11:26 Pulse 88 09/19/24 11:26 Respiratory Rate 16 09/19/24 11:26 Blood Pressure 134/89 09/19/24 11:26 Pulse Oximetry 98 09/19/24 11:26 Temperature 36.8 C 09/19/24 11:26 Pulse 88 09/19/24 11:26 Respiratory Rate 16 09/19/24 11:26 Blood Pressure 134/89 09/19/24 11:26 Pulse Oximetry 98 09/19/24 11:26 Pain Level 0 09/19/24 11:26 Procedure Laceration Laceration 1: Date of Procedure: 09/19/24 Time of procedure: 12:33 Provider that performed the procedure: vIonne Bean Patient Consented: Verbally Site: scalp (Right posterior) Side (If applicable): right Description: linear Depth: simple, single layer Local anesthetic: LET(lidocaine epinephrine tetracaine) Amount of anesthesia used (mL): 3 Pre-repair:: wound explored and irrigated extensively Suture size: other (Tissue adhesive and steri strips) Medical Decision Making 69-year-old male presents to the ER with a chief complaint of head scalp laceration which occurred prior to arrival. Patient was walking up a bank out in his yard and stood up into a tree branch. He has a proximately 3 cm laceration noted to the top of his scalp. Bleeding controlled. Laceration is well-approximated. He is requesting Dermabond. I did mention erika however tissue adhesive may be sufficient. He was given a tetanus vaccination upon arrival. He denies any loss of consciousness did not fall no neck pain no blurry vision. Laceration cleaned with chlorhexidine scrub and irrigated with normal saline, it is contaminated and there was some debris that was removed. Discussed signs of infection with patient and family who verbalized understanding. Laceration had Dermabond placed, 3 Steri-Strips. Will give him a prescription for cephalexin to begin if there is any signs of infection such as increased redness red streaks or drainage. They verbalized understanding. Wound was well- approximated with the tissue adhesive and Steri-Strips. Due to no loss of consciousness, no significant neurological symptoms, no severe mechanism, and no blood thinners other than aspirin CT imaging was deferred at this time. Patient discharged in hemodynamically stable condition, alert and oriented. This text was generated using [employer] dictation system, please disregard any oddities of phrase or misspellings. Quality:SDOH Health Related Social Needs: 2 Health related social needs feeling lonely/isolated (Z 60.8) PFSH All Active Problems (Updated 09/19/24 @ 12:37 by Ivonne Bean NP) Laceration of scalp (Acute) Obesity (Chronic) Dizziness (Acute) Impingement of right shoulder (Acute) Arthritis of right glenohumeral joint (Acute) Superior labrum [id number] (SLAP) tear of right shoulder (Acute) ASCVD (arteriosclerotic cardiovascular disease) (Acute) Foamy urine (Acute) Ventricular ectopy (Acute) Fatigue due to treatment (Acute) Ascending aorta dilatation (Acute) Throat fullness (Acute) Pre-syncope (Acute) Sensorineural hearing loss (Acute) Arthrosis (Acute) Vertiginous syndrome (Chronic) Hypertension (Chronic) Dyslipidemia (Chronic) GERD (gastroesophageal reflux disease) (Chronic) Hypercholesterolemia (Chronic 10/29/07) Osteoarthritis of both knees (Chronic) History of total bilateral knee replacement (TKR) (Chronic) DOS: 03/14/18 Dr. Tate Lumbosacral spondylosis without myelopathy (Acute) 06/11/18 s/p lumbar/sacral medial branch block-[facility] clinic- History of spinal surgery (Acute) History of bursectomy (Acute) History of arthroscopy of knee (Acute) Alcohol abuse (Acute) Elevated liver enzymes (Acute) BPH w urinary obs/LUTS (Acute) Pain of right thumb (Acute) Elbow pain, right (Acute) Right shoulder pain (Acute) Arthritis of carpometacarpal joint (Acute) Right thumb injection: 08/19/2020; 04/06/21; 10/09/21 S/P [facility] arthroplasty: 03/21/2022 Right rotator cuff tendinitis (Acute) Tendinitis of long head of biceps brachii of right shoulder (Acute) Depression (Chronic) Bursitis of right shoulder (Acute) Salivary gland stone (Acute) Back pain (Acute) Bursitis of left shoulder (Acute) Arthritis of left acromioclavicular joint (Acute) Traumatic tear of left rotator cuff (Acute) Rotator cuff tear, right (Acute 05/07/24) s/p Right shoulder arthroscopy with rotator cuff repair (large supraspinatus & subscapularis), biceps tenodesis, extensive debridement, and subacromial decompression on 06/11/24 Anxiety disorder (Acute) Aortic root aneurysm (Acute) Ascending aortic aneurysm (Acute) 5.[address] 04/18 Left shoulder pain (Acute) Numbness of right hand (Acute) Presbycusis (Acute) Bilateral carpal tunnel syndrome (Acute) Medical History Biceps tendinitis of left shoulder Osteoarthritis of knees, bilateral reassure Hypertension Hypercholesterolemia Hearing loss Surgical History S/P knee replacement (~03/14/18) DR. TATE; B/L History of arthroscopy of both knees NEGATIVE STRESS TEST 04/03/17 11/21/21 Excision, Olecranon Bursa (~08/2009) Colonoscopy - MAC 05/14/14 BACK SURGERY (~04/2013) Family History Mother , AGE 88 Diabetes Essential hypertension Hyperlipidemia Father , AGE 79 Essential hypertension Depression Heart disease Substance abuse Maternal Grandmother Stroke Sister Essential hypertension Sister No problems noted. Sister Multiple sclerosis Brother Depression Substance abuse Alcohol abuse Hypertension Brother No problems noted. Son No problems noted. Daughter No problems noted. Social History (Updated 05/29/24 @ 09:38 by Gwendolyn Isidro) Smoking/Tobacco Use Status: Never Second Hand Exposure: Yes Smoking risk assessment performed?: Yes Alcohol Intake: current Alcohol Intake frequency: a few times a week Alcohol type: beer Drug use: Never Substance use type: does not use Adopted: No Caregiver/Support person: No Foster care: No Household members: spouse Housing: house Number of Children: 2 number of grandchildren: 5 Communication Needs: Hard of Hearing Education Level: college Do you need help understanding health information?: Rarely current occupation: Retired Pets and animals: No Sexually active: No Do you think of yourself as: straight/heterosexual Current gender identity: male What is your relationship status?: How often do you talk on the phone with friends or family?: three or more times per week How often do you get together with friends or relatives?: twice per week How often do you attend presybeterian or methodist services?: decline to answer Do you belong to any clubs or organized social groups?: no Panel score (0-1 are the most socially isolated patients): 2 What type of physical activity do you participate in: none Mine/Christianity: None Agree to transfusion: No Seatbelt use: sometimes Helmet use: Yes Helmet use: sometimes Drive intox or ride w/intox tank wagon driver: No Working smoke detector in home: Yes Carbon monox detector in home: Yes Firearms in home: Yes Firearms unloaded and locked: Yes Do you feel safe at home: Yes Do you feel safe in your relationship?: Yes Victim of physical abuse: No Victim of emotional abuse: No Victim of sexual abuse: No
== END 2024-09-19 12:56 | disposition home or self-care (01) ==
PROVIDERS: Emergency Provider Registered Nurse Emergency; PCP Family Medicine
DX: S01.01XA Laceration without foreign body of scalp, initial encounter (principal); I10 Essential (primary) hypertension; E78.00 Pure hypercholesterolemia, unspecified; Z79.82 Long term (current) use of aspirin; Z79.899 Other long term (current) drug therapy; Z23 Encounter for immunization; W22.09XA Striking against other stationary object, initial encounter; Y93.89 Activity, other specified; Y92.89 Other specified places as the place of occurrence of the external cause
CPT/HCPCS: 12002; 90471; 90715; 99283

== ENCOUNTER 2025-04-16 09:17 | Outpatient (CLI) | payer OTHER, SELFPAY ==
--- NOTE | 2025-04-16 09:15 | RT.EKG_ITS ---
APPROVED REPORT Exam: Resting ECG Reason for Exam: follow up needed Patient Location: O HR:71 bpm ECG Measurements Heart Rate 71 AXIS PA 180 P 15 QRSd 91 QRS -44 QT 441 T 23 QTc 480 Conclusion Sinus rhythm...normal P axis, V-rate 50- 99 Supraventricular bigeminy...bigeminy string>4 w/ SV complexes Left anterior fascicular block...axis(240,-40), init forces inf
== END 2025-04-16 09:18 | disposition home or self-care (01) ==
LOC: DI.CARD 09:17
PROVIDERS: PCP Family Medicine; Visit Provider Internal Medicine Cardiovascular Disease
DX: I25.10 Atherosclerotic heart disease of native coronary artery without angina pectoris (principal); I49.3 Ventricular premature depolarization; I49.49 Other premature depolarization; I44.4 Left anterior fascicular block
CPT/HCPCS: 93010